=== PATIENT | male | born 1950 | race Caucasian/White ===

== ENCOUNTER 2017-03-25 18:57 | Inpatient (IN) | payer MEDICARE, MEDICAID ==
[2017-03-25 19:48] LABS: Hematocrit 38 % (42-52); Hemoglobin 12.6 g/dl (14.0-18.0); Mean Corpuscular HGB Conc 34 g/dl (31-36); Mean Corpuscular Hemoglobin 31 pg (27-31); Mean Corpuscular Volume 93 fL (80-94); Mean Platelet Volume 9 um3 (7.4-10.4); Red Blood Count 4.05 10^6/ul (4.0-5.4); Red Cell Distribution Width 13 % (10.5-15); White Blood Count 20.1 10^3/ul (3.5-10.8)
[2017-03-25] MEDS ORDERED: NS 0.9% 1000 ML* 1,800 ML IV ONE (19:54)
[2017-03-25] MEDS ORDERED: Thiamine IV* 100 MG, Folic Acid IV* 1 MG, Multiple Vitamin IV ADULT* 10 ML, Magnesium S... IV ONE ×5 (19:54)
[2017-03-25] MEDS ORDERED: cefTRIAXone(*) 1 GM in NS 0.9% 50 ML* 50 ML IVPB ONE (19:55)
[2017-03-25 20:02] LABS: ALT 16 U/L (7-52); AST 36 U/L (13-39); Alkaline Phosphatase 57 U/L (34-104); BUN/Creatinine Ratio 12.2 (8-20); Blood Urea Nitrogen 11 mg/dL (6-24); CO2 Carbon Dioxide 23 mmol/L (22-32); Calcium 9.7 mg/dL (8.6-10.3); Chloride 91 mmol/L (101-111); EGFR African American 108.6 (>60); EGFR Non-African American 84.4 (>60); Globulin 3.7 g/dL (2-4); Glucose 106 mg/dL (70-100); Sodium 128 mmol/L (133-145); Total Protein 6.7 g/dL (6.4-8.9)
[2017-03-25 20:14] LABS: Creatine Kinase 691 U/L (10-223)
[2017-03-25 20:24] LABS: Anion Gap 14 mmol/L (2-11); Potassium 2.7 mmol/L (3.5-5.0)
[2017-03-25] MEDS ORDERED: Potassium Chlor TAB* 20 MEQ TAB.ER PO ONE (20:32)
[2017-03-25 20:53] LABS: Troponin I 0.12 ng/mL (<0.04)
--- NOTE | 2017-03-25 21:06 | RAD ---
Indication: Fall, head injury. CT of the brain was performed without IV contrast. Ventricular structures are midline. No midline shift is noted. The extra-axial spaces are unremarkable. Periventricular lucency consistent with chronic ischemic changes noted. There is no evidence of intracranial mass or hemorrhage. No other high or low density lesions are identified. Mastoid air cells and paranasal sinuses are clear. IMPRESSION: No intracranial mass or hemorrhage is noted.
--- NOTE | 2017-03-25 21:07 | RAD ---
Indication: Right proximal humerus pain. 4 views views of the right shoulder demonstrates no fracture. No other bone or joint abnormality is identified. IMPRESSION: No fracture of the right shoulder is noted.
[2017-03-25 21:11] LABS: Alcohol < 10 mg/dL (<10)
--- NOTE | 2017-03-25 21:32 | ED ---
Pilar Otero Rebecca, scribed for Terra Handy MD on 03/25/17 at 1928 . Altered Mental Status - HPI Summary HPI Summary: Pt is a 66 y/o M BIBA who presents to ED s/p being found on the ground by his daughter. Per nurse, the daughter stated that he drinks heavily, was unsure of how much he drank today, and that he was extremely confused upon finding him. EMT additionally reported moderate confusion. Unsure of when sx began. When asked, pt could not recall what occurred leading to him being found on the ground. Is aware of location, unaware of date and age. Unknown aggravating and alleviating factors. Pt c/o slight R shoulder pain and slight thoracic back pain , stating it "feels more like skin." Sx aggravated and alleviated by nothing. Denies abd pain, hip pain and bilateral LE pain. Denies EtOH withdrawals and anxiety. Reports his daughter visits quite often, but not every day. SHx 4-5 beers per day, per pt. No PMHx seizure. PCP is [facility], last seen approximately 1.5 years ago. - History Of Current Complaint Chief Complaint: EDWeakness Stated Complaint: FAILURE TO THRIVE Hx Obtained From: Patient, EMS, Other: - Nurse Onset/Duration: Unknown Severity Initially: Moderate Severity Currently: Moderate Character: Confusion Aggravating Factor(s): Unknown Alleviating Factor(s): Unknown - Allergies/Home Medications Allergies/Adverse Reactions: Allergies Allergy/AdvReac Type Severity Reaction Status Date / Time No Known Allergies Allergy Verified 03/25/17 19:22 PMH/Surg Hx/FS Hx/Imm Hx Endocrine/Hematology History: Denies: Hx Diabetes Cardiovascular History: Denies: Hx Hypercholesterolemia, Hx Hypertension GI History: Reports: Hx Gastroesophageal Reflux Disease EENT History: Reports: Hx Seasonal Allergies - Immunization History Date of Tetanus Vaccine: unk Date of Influenza Vaccine: unk Infectious Disease History: Unable to Obtain/Confirm Infectious Disease History: Denies: Traveled Outside the [place] in Last 30 Days - Family History Known Family History: Negative: Hypertension, Diabetes - Social History Lives: Alone Alcohol Use: Daily Alcohol Amount: 4-5 beers/day per pt Substance Use Type: Reports: None Smoking Status (MU): Smoker, Current Status Unknown Review of Systems Negative: Abdominal Pain Positive: Arthralgia - Mild R shoulder pain and mild thoracic back pain; Denies hip pain and bilateral LE pain Psychological: Other - Denies EtOH withdrawals Positive: Other - AMS - confusion. Negative: Anxious All Other Systems Reviewed And Are Negative: Yes Physical Exam Triage Information Reviewed: Yes Vital Signs On Initial Exam: Initial Vitals Temp Pulse Resp BP Pulse Ox 99.9 F 81 16 160/77 93 03/25/17 19:13 03/25/17 19:13 03/25/17 19:13 03/25/17 19:13 03/25/17 19:13 Vital Signs Reviewed: Yes Appearance: Positive: Well-Appearing, No Pain Distress Skin: Positive: Warm, Dry, Other - Approximately a 3 cm erythematous area/ contusion over the proximal humorous on the right side. Eyes: Positive: EOMI, HERNANDEZ ENT: Positive: Pharynx normal, TMs normal, Other - Telangiectasia on nose Neck: Positive: Supple, Nontender Respiratory/Lung Sounds: Positive: Clear to Auscultation, Breath Sounds Present. Negative: Rales, Rhonchi, Wheezes Cardiovascular: Positive: RRR, Other - No gallop. Negative: Murmur, Rub Abdomen Description: Positive: Nontender, Soft, Other: - No rebound. Negative: Distended, Guarding Musculoskeletal: Positive: Strength/ROM Intact Neurological: Positive: Sensory/Motor Intact, CN Intact II-III, Finger to Nose - Normal, Other - Intention tremor. Negative: Facial Droop Psychiatric: Positive: Affect/Mood Appropriate - Marilee Coma Scale Coma Scale Total: 14 Diagnostics - Vital Signs Vital Signs Temp Pulse Resp BP Pulse Ox 03/25/17 19:13 99.9 F 81 16 160/77 93 - Laboratory Lab Results: Lab Results 03/25/17 03/25/17 03/25/17 Range/Units 19:35 19:35 19:35 WBC 20.1 H (3.5-10.8) 10^3/ul RBC 4.05 (4.0-5.4) 10^6/ul Hgb 12.6 L (14.0-18.0) g/dl Hct 38 L (42-52) % MCV 93 (80-94) fL MCH 31 (27-31) pg MCHC 34 (31-36) g/dl RDW 13 (10.5-15) % Plt Count 151 (150-450) 10^3/ul MPV 9 (7.4-10.4) um3 Neut % (Auto) 89.4 H (38-83) % Lymph % (Auto) 6.1 L (25-47) % Cassia % (Auto) 3.7 (1-9) % Eos % (Auto) 0.1 (0-6) % Baso % (Auto) 0.7 (0-2) % Absolute Neuts (auto) 18.0 H (1.5-7.7) 10^3/ul Absolute Lymphs (auto) 1.2 (1.0-4.8) 10^3/ul Absolute Monos (auto) 0.8 (0-0.8) 10^3/ul Absolute Eos (auto) 0 (0-0.6) 10^3/ul Absolute Basos (auto) 0.1 (0-0.2) 10^3/ul Absolute Nucleated RBC 0 10^3/ul Nucleated RBC % 0 Sodium 128 L (133-145) mmol/L Potassium 2.7 L* (3.5-5.0) mmol/L Chloride 91 L (101-111) mmol/L Carbon Dioxide 23 (22-32) mmol/L Anion Gap 14 H (2-11) mmol/L BUN 11 (6-24) mg/dL Creatinine 0.90 (0.67-1.17) mg/dL Est GFR ( Amer) 108.6 (>60) Est GFR (Non-Af Amer) 84.4 (>60) BUN/Creatinine Ratio 12.2 (8-20) Glucose 106 H (70-100) mg/dL Lactic Acid 2.3 H* (0.5-2.0) mmol/L Calcium 9.7 (8.6-10.3) mg/dL Total Bilirubin 1.10 H (0.2-1.0) mg/dL AST 36 (13-39) U/L ALT 16 (7-52) U/L Alkaline Phosphatase 57 (34-104) U/L Total Creatine Kinase 691 H (10-223) U/L Troponin I 0.12 H* (<0.04) ng/mL Total Protein 6.7 (6.4-8.9) g/dL Albumin 3.0 L (3.2-5.2) g/dL Globulin 3.7 (2-4) g/dL Albumin/Globulin Ratio 0.8 L (1-3) Serum Alcohol < 10 (<10) mg/dL Result Diagrams: 03/25/17 19:35 03/25/17 19:35 Lab Statement: Any lab studies that have been ordered have been reviewed, and results considered in the medical decision making process. - Radiology Shoulder XR Xray Interpretation: No Acute Changes Radiology Interpretation Completed By: Radiologist - CT Brain CT CT Interpretation: No Acute Changes CT Interpretation Completed By: Radiologist - EKG 2053 Cardiac Rate: NL - 93 bpm Ectopy: PVCs - few PVCs EKG Interpretation: Sinus arrhythmia, LVH National Institutes Of Health - NIH Scale Level of Consciousness: Alert/Keenly Responsive Ask Patient the Month and His/Her Age: Neither Correct/Aphasic Ask Pt to Open/Close Eyes and Refining Machine Operator/Release Non-Paretic Hand: Both Correctly Best Gaze (Only Horizontal Eye Movement): Normal Visual Field Testing: No Visual Loss Facial Paresis-Pt to Smile & Close Eyes or Grimace Symmetry: Normal/Symmetrical Motor Function - Right Arm: No Drift-Holds 10 Seconds Motor Function - Left Arm: No Drift-Holds 10 Seconds Motor Function - Right Leg: No Drift-Holds 10 Seconds Motor Function - Left Leg: No Drift-Holds 10 Seconds Limb Ataxia-Must be out of Proportion to Weakness Present: Absent Sensory (Use Pinprick to Test Arms/Legs/Trunk/Face): Normal Best Language (Describe Picture, Name Items): No Aphasia Dysarthria (Read Several Words): Normal Extinction and Inattention: No Abnormality Total Score: 2 Altered Mental Statu Course/Dx - Course Course Of Treatment: 66 yo male found down by daughter with altered mental status, for me pt was able to carry on a conversation but didn't know month and age, reported hx of etoh abuse, ct brain neg, elevated wbc, and lactic, treated presumptively for sepsis and case discussed with Dr. Rodrgiuez for admission - Diagnoses Discharge Diagnoses: Altered mental status - Provider Notifications Discussed Care Of Patient With: Dr. Ocasio, hospitalist, who accepts pt for admission. Time Discussed With Above Provider: 20:54 Discharge - Discharge Plan Condition: Stable Disposition: ADMITTED TO [facility] Referrals: Francis Ledbetter MD [Primary Care Provider] - The documentation as recorded by the scribe, DiFabio,Evelyn accurately reflects the service I personally performed and the decisions made by me, Terra Handy MD.
[2017-03-25] MEDS ORDERED: Magnesium Sulfate 2 GM IV* 2 GM/50 ML BAG IV ONE (22:00)
[2017-03-25] MEDS ORDERED: Thiamine IV* 100 MG, Folic Acid IV* 1 MG, Multiple Vitamin IV ADULT* 10 ML in NS 0.9% 1... IV ONE (22:00)
--- NOTE | 2017-03-25 22:53 | HP ---
H&P (Free Text) History and Physical: PCP: Mirza Ledbetter MD Date/Time of Evaluation: 03/25/2017 5158 CC: collapse, AMS HPI: Mr Tellez is a 66YO male HX alcoholism who takes no prescribed medications. He recalls awakening this AM in his usual health, but at some time this afternoon a friend was trying to check on him, but Mr Tellez didn't answer his door for ~40minutes prompting the friend to call his daughter around 1730. She arrived around 1800 finding him on the floor outside his bathroom in a position. He was responsive and would answer questions, but doesn't recall events of the day. There was no emesis, bleeding, or loss of bowel bladder. He has been having poor PO intake related to worsening abdominal pain and diarrhea over the past several week which he has been treating with OTC anti -acid medications. He denies symptoms currently. PMedHx active alcoholism malnutrition chronic LBP Medications Denies Allergies No Known Allergies Allergy (Verified 03/25/17 19:22) PSurgHx L knee arthroscopy SocHx: 1/2 PPD cigarettes, 6-12 twenty-four OZ beers daily, occasional marijuana , denies other recreational drugs; , lives alone; formerly worked contractor, currently is an artist; full code status FamHx: positive for cancer, HTN, alcoholism, questionable HX Parkinsonism ROS: as above, otherwise reviewed and all were negative Constitutional: NAD, normally developed, malnourished unkempt appearing white male vitals: Vital Signs Temp 37.7 C 03/25/17 19:13 Pulse 81 03/25/17 19:13 Resp 16 03/25/17 19:13 BP 160/77 03/25/17 19:13 Pulse Ox 93 03/25/17 19:13 Intake & Output 03/24/17 03/25/17 03/25/17 23:59 11:59 23:59 Weight 58.967 kg HEENM: atraumatic; sclera/conjunctiva: non-icteric/clear; hearing: clinically intact; oropharynx: clear, mucosa moist Neck: soft tissue: non-tender; thyroid: normal Pulmonary: clear to auscultation bilaterally, good aeration, no accessory muscle use CV: RR/RR, normal S1S2, no carotid bruit, no jugular venous distention, 2+ B DP/ PT, no edema Abdominal: soft, non-distended, non-tender, no rebound/guarding/rigidity, normoactive bowel sounds, no hepatosplenomegaly or masses, no costovertebral angle tenderness Musculoskeletal: general: grossly intact; gait: stable Integumental: normal appearance and texture of exposed skin Neurologic: resting [id number] tremor of R hand Psychiatric orientation: AA&O to PPS affect: calm mood: cooperative eye contact: good content: reliable memory: absent regarding events of today responses: mildly slowed insight: fair Testing: Lab Results 03/25/17 03/25/17 03/25/17 Range/Units 19:35 19:35 19:35 WBC 20.1 H (3.5-10.8) 10^3/ul RBC 4.05 (4.0-5.4) 10^6/ul Hgb 12.6 L (14.0-18.0) g/dl Hct 38 L (42-52) % MCV 93 (80-94) fL MCH 31 (27-31) pg MCHC 34 (31-36) g/dl RDW 13 (10.5-15) % Plt Count 151 (150-450) 10^3/ul MPV 9 (7.4-10.4) um3 Neut % (Auto) 89.4 H (38-83) % Lymph % (Auto) 6.1 L (25-47) % Bryan % (Auto) 3.7 (1-9) % Eos % (Auto) 0.1 (0-6) % Baso % (Auto) 0.7 (0-2) % Absolute Neuts (auto) 18.0 H (1.5-7.7) 10^3/ul Absolute Lymphs (auto) 1.2 (1.0-4.8) 10^3/ul Absolute Monos (auto) 0.8 (0-0.8) 10^3/ul Absolute Eos (auto) 0 (0-0.6) 10^3/ul Absolute Basos (auto) 0.1 (0-0.2) 10^3/ul Absolute Nucleated RBC 0 10^3/ul Nucleated RBC % 0 Sodium 128 L (133-145) mmol/L Potassium 2.7 L* (3.5-5.0) mmol/L Chloride 91 L (101-111) mmol/L Carbon Dioxide 23 (22-32) mmol/L Anion Gap 14 H (2-11) mmol/L BUN 11 (6-24) mg/dL Creatinine 0.90 (0.67-1.17) mg/dL Est GFR ( Amer) 108.6 (>60) Est GFR (Non-Af Amer) 84.4 (>60) BUN/Creatinine Ratio 12.2 (8-20) Glucose 106 H (70-100) mg/dL Lactic Acid 2.3 H* (0.5-2.0) mmol/L Calcium 9.7 (8.6-10.3) mg/dL Total Bilirubin 1.10 H (0.2-1.0) mg/dL AST 36 (13-39) U/L ALT 16 (7-52) U/L Alkaline Phosphatase 57 (34-104) U/L Total Creatine Kinase 691 H (10-223) U/L Troponin I 0.12 H* (<0.04) ng/mL Total Protein 6.7 (6.4-8.9) g/dL Albumin 3.0 L (3.2-5.2) g/dL Globulin 3.7 (2-4) g/dL Albumin/Globulin Ratio 0.8 L (1-3) Serum Alcohol < 10 (<10) mg/dL ECG, personally reviewed: sinus arrhythmia rate 92, no ischemia, occasional PAC/ PVC, QTc 503 CXR, personally reviewed: ordered, pending CT brain WO, personally reviewed: IMPRESSION: No intracranial mass or hemorrhage is noted. XRY R shoulder, personally reviewed: IMPRESSION: No fracture of the right shoulder is noted. Impression: 66M having escalating alcohol consumption over the past few months associated with worsening abdominal pain and diarrhea resulting in poor PO intake and cessation of drinking with result of being found down today. Highly suspicious for withdrawal seizure vs arrhythmia vs doubtful vasovagal syncope based on duration of downtime (>1hour) DIAGNOSIS & PLAN Primary suspect alcohol withdrawal seizure : seizure precautions : WAM protocol with seizure prophylaxis : supplemental oxygen : telemetry : add prolactin to ED labs : check CXR to evaluation for possible aspiration : aids social worker for community abstinence resources : check hepatic US : supportive care leukocytosis : trend : blood CX, check UA, & CXR hypoKalemia : replace and recheck hypoNatremia : likely beer potomania : IVFs, monitor elevated troponin : suspect demand ischemia vs ?arrhythmia : check magnesium : telemetry : trend : without HX cardiac symptomotology, will hold aspirin & heparin as he likely has a significant alcoholic gastritis and is at risk for GI hemorrage, variceal status unknown : low dose metoprolol Secondary tobacco use disorder : suspect undiagnosed COPD : albuterol nebs PRN : mometasone/formoterol : tiotropium : incentive spirometry : guaifenesin : smoking cessation chronic LBP : pain control suspect undiagnosed Parkinsonism : follow up with PCP outpatient for work up Admission Rational: inpatient for suspected alcohol withdrawal seizure, the potentially life-threatening nature of which makes outpatient status inappropriate DVTp: SCDs, avoid anticoagulation give suspected alcoholic gastritis ? varices status Code Status: full HCP: daughter
[2017-03-25] MEDS ORDERED: LORazepam INJ* 2 MG/ML 1 ML VIAL IV SCH (23:45)
[2017-03-25] MEDS ORDERED: Acetaminophen TAB* 325 MG PO PRN (23:57)
[2017-03-25] MEDS ORDERED: Thiamine IV* 100 MG/ML 2 ML VIAL IM ONE (23:57)
[2017-03-26] MEDS ORDERED: Albuterol 2.5 MG/3 ML NEB.SOL* (0.083%) INH PRN (00:13)
[2017-03-26 00:15] LABS: Magnesium 1.2 mg/dL (1.9-2.7)
[2017-03-26 00:49] LABS: Prolactin 10.3 ng/mL (1.0-20.0)
[2017-03-26] MEDS ORDERED: Potassium Chlor TAB* 20 MEQ TAB.ER PO ONE (02:00)
[2017-03-26] MEDS: LORazepam TAB(*) 1 MG PO SCH ×3 (02:18→15:35)
[2017-03-26] MEDS: Metoprolol Tartrate TAB* 25 MG PO SCH ×3 (02:19→21:13)
[2017-03-26 05:38] LABS: Hematocrit 31 % (42-52); Hemoglobin 10.6 g/dl (14.0-18.0); Mean Corpuscular HGB Conc 34 g/dl (31-36); Mean Corpuscular Hemoglobin 31 pg (27-31); Mean Corpuscular Volume 91 fL (80-94); Mean Platelet Volume 9 um3 (7.4-10.4); Red Blood Count 3.39 10^6/ul (4.0-5.4); Red Cell Distribution Width 12 % (10.5-15); White Blood Count 18.2 10^3/ul (3.5-10.8)
[2017-03-26 05:40] LABS: Add Diff/Slide Review? Slide Review Added; Comments Flag Yes
[2017-03-26 05:42] LABS: BUN/Creatinine Ratio 14.5 (8-20); Calcium 8.4 mg/dL (8.6-10.3); EGFR Non-African American 102.6 (>60); Potassium 2.8 mmol/L (3.5-5.0)
[2017-03-26 05:46] LABS: Troponin I 0.11 ng/mL (<0.04)
--- NOTE | 2017-03-26 08:09 | RAD ---
INDICATION: Leukocytosis, possible aspiration. COMPARISON: There are no prior studies available for comparison. TECHNIQUE: Dual-energy PA and lateral views of the chest were obtained. FINDINGS: The heart is within normal limits in size. Mediastinal and hilar contours appear within normal limits. The lungs are hyperinflated and clear. No pleural effusion is seen. IMPRESSION: FINDINGS CONSISTENT WITH COPD, NO EVIDENCE FOR ACUTE FINDING.
[2017-03-26] MEDS ORDERED: Mometasone/Formoter 200/5 MDI INH SCH (09:00)
[2017-03-26] MEDS ORDERED: guaiFENesin ER TAB 600 MG PO SCH (09:00)
[2017-03-26] MEDS ORDERED: Spiriva Inhaler DEVICE* 1 EACH DEVICE INH ONE (09:00)
[2017-03-26] MEDS ORDERED: Tiotropium CAP.INH* CAP.INH/18 MCG INH SCH (09:00)
[2017-03-26] MEDS: Folic Acid TAB* 1 MG PO SCH (09:16)
[2017-03-26] MEDS: Thiamine TAB* 100 MG TAB PO SCH (09:16)
[2017-03-26] MEDS: Multivitamins/Minerals TAB PO SCH (09:16)
--- NOTE | 2017-03-26 10:34 | RAD ---
INDICATION: Alcoholism. Evaluate for cirrhosis. COMPARISON: None TECHNIQUE: Longitudinal and transverse scans of the right upper quadrant were obtained. Doppler interrogation of the hepatic and portal venous system was performed. FINDINGS: Liver: The liver is mildly diminutive in size. There is minor coarsening of the echotexture suggesting hepatic parenchymal disease.. The liver measures 13.5 cm in cephalocaudal dimension. Vessels: There is normal hepatic and portal venous flow. Bile ducts: There is no evidence of intrahepatic or extrahepatic ductal dilatation. The common duct measures 0.4 cm. Gallbladder: There may be trace sludge in the gallbladder. The sonographic appearance of the gallbladder is otherwise normal. There is no evidence of cholelithiasis, thickening of the gallbladder wall, or pericholecystic fluid. Pancreas: Limited evaluation due to interfering bowel gas. No abnormalities are identified. Right kidney: The right kidney is normal in size and echogenicity. There are no masses or calculi. There is no evidence of hydronephrosis. The right kidney measures 12.3 x 4.4 x 4.9 cm. IVC and aorta: The aorta and superior vena cava appear normal. Fluid: There is no ascites. Other: None. IMPRESSION: MILDLY HETEROGENEOUS LIVER WHICH IS MILDLY DIMINUTIVE IN SIZE RAISES THE POSSIBILITY OF MILD HEPATIC PARENCHYMAL DISEASE. PROBABLE SMALL AMOUNT OF GALLBLADDER SLUDGE.
--- NOTE | 2017-03-26 12:13 | ECHO ---
Patient: TY CHOWDARY [facility] Rec#: [id number] : 1950 Date: 03/26/2017 Age: 66y Height: 172.72 cm / 68.0 in Weight: 55.79 kg / 123.0 lbs Sex: M BSA: 1.66 Room#: [facility] Admit Date#: 03/25/2017 Type: Inpatient Referring: Isidoro Ocasio MD Reading: Katy Fountain MD Space Technologist: Prema Sanchez,RDCS,RDMS CC: Francis Ledbetter MD Transthoracic Echocardiogram Indication: Elevated troponin, AMS BP: 142/64 HR: 80 Rhythm: NSR Findings History: ETOH, smoker, COPD by chest Xray Technical Comments: The study quality is good. Completed 0950 Left Ventricle: The left ventricular chamber size is normal. Mild concentric left ventricular hypertrophy is observed. The estimated ejection fraction is 50-55%. Abnormal left ventricular diastolic filling is observed, consistent with impaired relaxation. Left Atrium: The left atrium is mildly dilated. Right Ventricle: The right ventricular chamber size and systolic function are within normal limits. Right Atrium: The right atrial cavity size is normal. A prominent chiari network is noted in the right atrium. Aortic Valve: The aortic valve is trileaflet. The aortic valve leaflets are moderately thickened. There is aortic annular calcification. There is mild to moderate aortic regurgitation. There is mild aortic stenosis. The mean gradient of the aortic valve is 13 mmHg. The aortic valve area, by peak velocities, is calculated at 1.5 cm2. Mitral Valve: There is mitral annular calcification. The mitral valve leaflets are mildly thickened. There is mild mitral regurgitation. There is no evidence of mitral stenosis. Tricuspid Valve: The tricuspid valve leaflets are normal. There is moderate tricuspid regurgitation. There is evidence of moderate pulmonary hypertension. Pulmonic Valve: There is no evidence of pulmonic valve thickening. There is no evidence of pulmonic regurgitation. Pericardium: A trivial pericardial effusion is visualized.No hemodynamic compromise. Aorta: The aortic root appears normal. There is no dilatation of the aortic arch. Pulmonary Artery: The main pulmonary artery is not well visualized. Venous: The inferior vena cava is dilated. There is an approximate 50% respiratory change in the inferior vena cava dimension. Summary: There was not any prior study for comparison. Conclusions The left ventricular chamber size is normal. Mild concentric left ventricular hypertrophy is observed. The estimated ejection fraction is 50-55%. The left atrium is mildly dilated. There is mild to moderate aortic regurgitation. There is mild aortic stenosis. There is mild mitral regurgitation. There is moderate tricuspid regurgitation. There is evidence of moderate pulmonary hypertension. Measurements Name Value Normal Range RVIDd (AP) 2D 2.8 cm (0.9 - 2.6) RVDdMajor (2D) 2.9 cm (2.2 - 4.4) RAd ISD 4CH 4.8 cm (3.4 - 4.9) RA (A4C)W 4.1 cm (2.9 - 4.6) IVSd (2D) 1.3 cm (0.6 - 1) LVPWd (2D) 1.3 cm (0.6 - 1) LVIDd (2D) 4.3 cm (3.6 - 5.4) LVIDs (2D) 3.6 cm - LV FS (2D) 17 % (25 - 45) Aortic Annulus 2 cm (1.4 - 2.6) Ao root diameter (2D) 3.1 cm (2.1 - 3.5) Ascending Ao 3.1 cm (2.1 - 3.4) Aortic arch 2.9 cm (1.8 - 3.4) LA dimension (AP) 2D 3.6 cm (2.3 - 3.8) LAd ISD 4CH 5.9 cm (2.9 - 5.3) LA ISD 4CH W 3.7 cm (2.5 - 4.5) Name Value Normal Range LA ESV SP 4CH (A/L) 64.75 ml - LA ESV SP 2CH (A/L) 67.54 ml - LA ESV BP (A/L) 69.4 ml - LA ESV BP (A/L) index 42 ml/m2 - LA ESV SP 4CH (MOD) 57.42 ml - LA ESV SP 2CH (MOD) 61.15 ml - Name Value Normal Range MV E-wave Vmax 0.6 m/sec - MV deceleration time 146 msec - MV A-wave Vmax 0.8 m/sec - MV E:A ratio 0.8 ratio - P. vein S-wave Vmax 0.5 m/sec - P. vein D-wave Vmax 0.3 m/sec - P. vein S:D Vmax ratio 1.5 ratio - P. vein A-wave duration 107.3 msec - LV septal e' Vmax 0.07 m/sec - LV lateral e' Vmax 0.06 m/sec - LV E:e' septal ratio 8.6 ratio - LV E:e' lateral ratio 10 ratio - Name Value Normal Range AV Vmax 2.7 m/sec - AV VTI 51.2 cm - AV peak gradient 29 mmHg - AV mean gradient 13 mmHg - LVOT diameter 2.2 cm - LVOT Vmax 1.1 m/sec - LVOT VTI 24.5 cm - LVOT peak gradient 5 mmHg - LVOT mean gradient 2.7 mmHg - DOI (VTI) 0.5 ratio - STEWART (continuity Vmax) 1.5 cm2 - STEWART (continuity VTI) 1.8 cm2 - AR PHT 353.96 msec - AR peak gradient 67.86 mmHg - MICHELINE Vmax 0.6 m/sec - Name Value Normal Range MR Vmax 6.22 m/sec - MR VTI 210.3 cm - Name Value Normal Range TR Vmax 3.1 m/sec - TR peak gradient 38 mmHg - RAP 8 mmHg - RVSP 46 mmHg - IVC diameter 2.3 cm - Name Value Normal Range PV Vmax 0.6 m/sec - PV peak gradient 1.4 mmHg -
[2017-03-26] MEDS ORDERED: LORazepam INJ* 2 MG/ML 1 ML VIAL IV SCH (17:26)
[2017-03-26] MEDS: KCL 20 MEQ/100 ML IVPREMIX* 20 MEQ/100 ML BAG IV SCH ×2 (17:40→21:29)
[2017-03-26] MEDS: NS 0.9% 1000 ML* 1,000 ML IV SCH (17:40)
[2017-03-26] MEDS ORDERED: Piperac/Tazob 3.375 gm in NS* 3.375 GM/100 ML BAG IVPB SCH (18:00)
--- NOTE | 2017-03-26 19:04 | PN ---
Subjective Date of Service: 03/26/17 Interval History: Pt is noted to be much more lethargic today per his daughter. She is concerned because she thinks he looks worse now than previous. He denies any pain. Objective Active Medications: Acetaminophen (Tylenol Tab*) 650 mg PO Q4H PRN PRN Reason: PAIN Albuterol (Ventolin 2.5 Mg/3 Ml Neb.Rivka*) 2.5 mg INH Q2H PRN PRN Reason: SOB/WHEEZING Folic Acid (Folvite Tab*) 1 mg PO DAILY [facility] Last Admin: 03/26/17 09:16 Dose: 1 mg Potassium Chloride (Potassium Chloride 20 Meq/100 Ml Ivpremix*) 20 meq in 100 mls @ 50 mls/hr IV Q2H [facility] Stop: 03/26/17 23:59 Last Admin: 03/26/17 17:40 Dose: 50 mls/hr Sodium Chloride (Ns 0.9% 1000 Ml*) 1,000 mls @ 75 mls/hr IV PER RATE [facility] Last Admin: 03/26/17 17:40 Dose: 75 mls/hr Piperacillin Sod/Tazobactam Sod (Zosyn 3.375 Gm In Ns Premix*) 3.375 gm in 100 mls @ 200 mls/hr IVPB .ONCE-THEN Rx DOSING [facility] Lorazepam (Ativan Inj*) 0 mg IV .PER WAM SCORE [facility] PRN Reason: Protocol Metoprolol Tartrate (Lopressor Tab*) 25 mg PO BID [facility] Last Admin: 03/26/17 09:16 Dose: 25 mg Multivitamins/Minerals (Theragran/Minerals Tab*) 1 tab PO DAILY [facility] Last Admin: 03/26/17 09:16 Dose: 1 tab Thiamine HCl (Vitamin B-1 Tab*) 100 mg PO DAILY [facility] Last Admin: 03/26/17 09:16 Dose: 100 mg Vital Signs 03/25/17 03/25/17 03/25/17 23:00 23:30 23:54 Temperature 99.1 F Pulse Rate 87 87 93 Respiratory 16 Rate Blood Pressure 141/64 141/64 148/69 (mmHg) O2 Sat by Pulse 93 93 98 Oximetry 03/26/17 03/26/17 03/26/17 00:00 00:01 00:18 Temperature Pulse Rate 83 83 85 Respiratory Rate Blood Pressure 143/63 144/69 (mmHg) O2 Sat by Pulse 94 94 94 Oximetry 03/26/17 03/26/17 03/26/17 00:30 01:00 02:18 Temperature Pulse Rate 87 86 Respiratory 16 Rate Blood Pressure 156/65 (mmHg) O2 Sat by Pulse 94 95 Oximetry 03/26/17 03/26/17 03/26/17 03:39 04:18 04:53 Temperature 97.8 F 97.6 F Pulse Rate 76 77 Respiratory 16 20 16 Rate Blood Pressure 155/57 144/57 (mmHg) O2 Sat by Pulse 96 96 Oximetry 03/26/17 03/26/17 03/26/17 07:41 07:43 09:16 Temperature 97.6 F Pulse Rate 48 Respiratory 16 18 15 Rate Blood Pressure 142/64 (mmHg) O2 Sat by Pulse 95 Oximetry 03/26/17 03/26/17 03/26/17 09:40 11:16 11:32 Temperature 97.6 F 97.7 F Pulse Rate 75 79 Respiratory 16 16 16 Rate Blood Pressure 141/65 140/79 (mmHg) O2 Sat by Pulse 99 96 Oximetry 03/26/17 15:22 Temperature 97.8 F Pulse Rate 79 Respiratory 24 Rate Blood Pressure 144/68 (mmHg) O2 Sat by Pulse 97 Oximetry Oxygen Devices in Use Now: None Appearance: Middle aged chronically ill appear male, sitting in a chair, NAD Eyes: No Scleral Icterus Ears/Nose/Mouth/Throat: Mucous Membranes Moist Respiratory: Symmetrical Chest Expansion and Respiratory Effort, Clear to Auscultation Cardiovascular: NL Sounds; No Murmurs; No JVD, RRR, No Edema Abdominal: NL Sounds; No Tenderness; No Distention Extremities: No Clubbing, Cyanosis Skin: No Rash or Ulcers, No Nodules or Sclerosis Neurological: - - alert, speech is difficult to understand Result Diagrams: 03/26/17 05:22 03/26/17 05:22 Additional Lab and Data: Lab Results 03/25/17 03/25/17 03/25/17 Range/Units 19:35 19:35 19:35 WBC 20.1 H (3.5-10.8) 10^3/ul RBC 4.05 (4.0-5.4) 10^6/ul Hgb 12.6 L (14.0-18.0) g/dl Hct 38 L (42-52) % MCV 93 (80-94) fL MCH 31 (27-31) pg MCHC 34 (31-36) g/dl RDW 13 (10.5-15) % Plt Count 151 (150-450) 10^3/ul MPV 9 (7.4-10.4) um3 Neut % (Auto) 89.4 H (38-83) % Lymph % (Auto) 6.1 L (25-47) % [place] % (Auto) 3.7 (1-9) % Eos % (Auto) 0.1 (0-6) % Baso % (Auto) 0.7 (0-2) % Absolute Neuts (auto) 18.0 H (1.5-7.7) 10^3/ul Absolute Lymphs (auto) 1.2 (1.0-4.8) 10^3/ul Absolute Monos (auto) 0.8 (0-0.8) 10^3/ul Absolute Eos (auto) 0 (0-0.6) 10^3/ul Absolute Basos (auto) 0.1 (0-0.2) 10^3/ul Absolute Nucleated RBC 0 10^3/ul Nucleated RBC % 0 Sodium 128 L (133-145) mmol/L Potassium 2.7 L* (3.5-5.0) mmol/L Chloride 91 L (101-111) mmol/L Carbon Dioxide 23 (22-32) mmol/L Anion Gap 14 H (2-11) mmol/L BUN 11 (6-24) mg/dL Creatinine 0.90 (0.67-1.17) mg/dL Est GFR ( Amer) 108.6 (>60) Est GFR (Non-Af Amer) 84.4 (>60) BUN/Creatinine Ratio 12.2 (8-20) Glucose 106 H (70-100) mg/dL Lactic Acid 2.3 H* (0.5-2.0) mmol/L Calcium 9.7 (8.6-10.3) mg/dL Total Bilirubin 1.10 H (0.2-1.0) mg/dL AST 36 (13-39) U/L ALT 16 (7-52) U/L Alkaline Phosphatase 57 (34-104) U/L Total Creatine Kinase 691 H (10-223) U/L Troponin I 0.12 H* (<0.04) ng/mL Total Protein 6.7 (6.4-8.9) g/dL Albumin 3.0 L (3.2-5.2) g/dL Globulin 3.7 (2-4) g/dL Albumin/Globulin Ratio 0.8 L (1-3) Serum Alcohol < 10 (<10) mg/dL Assess/Plan/Problems-Billing Mr Tellez is a 66 yo M with a longstanding h/o alcoholism who started to cut back on drinking about 2 weeks ago on his own was found down outside of his bathroom and brought to the ER for evaluation. He felt to have a possible alcohol withdrawal seizure. - Patient Problems (1) Alcoholism Current Visit: Yes Status: Acute Code(s): F10.20 - ALCOHOL DEPENDENCE, UNCOMPLICATED SNOMED Code(s): 4830540 (2) Leukocytosis Current Visit: Yes Status: Acute Code(s): D72.829 - ELEVATED WHITE BLOOD CELL COUNT, UNSPECIFIED SNOMED Code(s): 737536101 Comment: ? aspiration pna. Will start zosyn. Monitor respiratory status. I question if he may have aspirated at the time of falling. (3) Hypokalemia Current Visit: Yes Status: Acute Code(s): E87.6 - HYPOKALEMIA SNOMED Code( s): 89414298 Comment: K remains low. Will start KCl 20mEq IV x3 runs. Will repeat BMP in AM. K likely low secondary to poor oral intake at home related to massive amounts of beer. (4) Hyponatremia Current Visit: Yes Status: Acute Code(s): E87.1 - HYPO-OSMOLALITY AND HYPONATREMIA SNOMED Code(s): 65493666 Comment: Likely beer drinkers potomania. Will start IVF hydration and repeat BMP tomorrow. (5) Elevated troponin Current Visit: Yes Status: Acute Code(s): R74.8 - ABNORMAL LEVELS OF OTHER SERUM ENZYMES SNOMED Code(s): 691039406 Comment: Likely demand ischemia. Echo did not show any wall motion abnormalities. Will not pursue any further work up at this time. (6) Tobacco abuse Current Visit: Yes Status: Acute Code(s): Z72.0 - TOBACCO USE SNOMED Code( s): 480358046 Comment: Once more alert and interactive can give smoking cessation education. (7) DVT prophylaxis Current Visit: Yes Status: Acute Code(s): SPD3841 - SNOMED Code(s): 524135747 Comment: Start SQ heparin (8) Full code status Current Visit: Yes Status: Acute Code(s): Z78.9 - OTHER SPECIFIED HEALTH STATUS SNOMED Code(s): 600022912
[2017-03-26] MEDS: Heparin VIAL(*) 5000 UNITS/ML VIAL (FIVE THOUSAND) SUBCUT SCH (21:18)
[2017-03-27] MEDS: KCL 20 MEQ/100 ML IVPREMIX* 20 MEQ/100 ML BAG IV SCH (01:58)
[2017-03-27] MEDS: Piperac/Tazob 3.375 gm in NS* 3.375 GM/100 ML BAG IVPB SCH ×3 (02:06→17:39)
[2017-03-27 06:14] LABS: Hematocrit 30 % (42-52); Hemoglobin 10.1 g/dl (14.0-18.0); Mean Corpuscular HGB Conc 34 g/dl (31-36); Mean Corpuscular Hemoglobin 31 pg (27-31); Mean Corpuscular Volume 93 fL (80-94); Mean Platelet Volume 9 um3 (7.4-10.4); Red Blood Count 3.22 10^6/ul (4.0-5.4); Red Cell Distribution Width 13 % (10.5-15); White Blood Count 11.8 10^3/ul (3.5-10.8)
[2017-03-27 06:33] LABS: Calcium 8.2 mg/dL (8.6-10.3); EGFR African American 124.4 (>60); EGFR Non-African American 96.7 (>60); Potassium 3.5 mmol/L (3.5-5.0)
[2017-03-27] MEDS: Thiamine TAB* 100 MG TAB PO SCH (09:25)
[2017-03-27] MEDS: Metoprolol Tartrate TAB* 25 MG PO SCH ×2 (09:25→22:14)
[2017-03-27] MEDS: Folic Acid TAB* 1 MG PO SCH (09:25)
[2017-03-27] MEDS: Heparin VIAL(*) 5000 UNITS/ML VIAL (FIVE THOUSAND) SUBCUT SCH ×2 (09:25→22:16)
[2017-03-27] MEDS: Multivitamins/Minerals TAB PO SCH (09:51)
--- NOTE | 2017-03-27 12:20 | PN ---
Subjective Date of Service: 03/27/17 Interval History: Pt is feeling well. He does c/o pain all over. His family/friends think his mental status is much closer to her baseline. He states he has only done a little bit of walking around the room. He is unable to tell me why he cut back on drinking. His friend states that he used to drink over a case of beer/day but over the last couple months was down to about a 6 pack/day and over the last couple weeks 1-2 beers/day. His friend states he did not notice any beer gone from 03/19/17-03/24/17 (the day prior to him being found down). Objective Active Medications: Acetaminophen (Tylenol Tab*) 650 mg PO Q4H PRN PRN Reason: PAIN Albuterol (Ventolin 2.5 Mg/3 Ml Neb.Rivka*) 2.5 mg INH Q2H PRN PRN Reason: SOB/WHEEZING Folic Acid (Folvite Tab*) 1 mg PO DAILY [facility] Last Admin: 03/27/17 09:25 Dose: 1 mg Heparin Sodium (Porcine) (Heparin Vial(*)) 5,000 units SUBCUT Q12HR [facility] Last Admin: 03/27/17 09:25 Dose: 5,000 units Sodium Chloride (Ns 0.9% 1000 Ml*) 1,000 mls @ 75 mls/hr IV PER RATE [facility] Last Admin: 03/26/17 17:40 Dose: 75 mls/hr Piperacillin Sod/Tazobactam Sod (Zosyn 3.375 Gm In Ns Premix*) 3.375 gm in 100 mls @ 25 mls/hr IVPB Q8H [facility] Last Admin: 03/27/17 09:24 Dose: 25 mls/hr Lorazepam (Ativan Inj*) 0 mg IV .PER WAM SCORE [facility] PRN Reason: Protocol Metoprolol Tartrate (Lopressor Tab*) 25 mg PO BID [facility] Last Admin: 03/27/17 09:25 Dose: 25 mg Multivitamins/Minerals (Theragran/Minerals Tab*) 1 tab PO DAILY [facility] Last Admin: 03/27/17 09:51 Dose: Not Given Thiamine HCl (Vitamin B-1 Tab*) 100 mg PO DAILY [facility] Last Admin: 03/27/17 09:25 Dose: 100 mg Vital Signs 05/03/26/17 03/26/17 15:22 20:00 20:50 Temperature 97.8 F Pulse Rate 79 82 Respiratory 24 20 20 Rate Blood Pressure 144/68 126/57 (mmHg) O2 Sat by Pulse 97 99 Oximetry 03/27/17 03/27/17 03/27/17 00:11 01:44 04:08 Temperature 98.4 F 98.5 F Pulse Rate 77 79 76 Respiratory 22 20 Rate Blood Pressure 176/74 152/73 168/64 (mmHg) O2 Sat by Pulse 100 100 Oximetry 03/27/17 03/27/17 03/27/17 06:53 07:37 07:38 Temperature 97.3 F Pulse Rate 77 Respiratory 16 16 16 Rate Blood Pressure 157/66 (mmHg) O2 Sat by Pulse 100 Oximetry Oxygen Devices in Use Now: None Appearance: Middle aged chronically ill male sitting in a chair, awake and alert , NAD Eyes: No Scleral Icterus Ears/Nose/Mouth/Throat: Mucous Membranes Moist Respiratory: Symmetrical Chest Expansion and Respiratory Effort, Clear to Auscultation - diminshed breath sounds in all lung sotelo Cardiovascular: NL Sounds; No Murmurs; No JVD, RRR, No Edema Abdominal: NL Sounds; No Tenderness; No Distention Extremities: No Clubbing, Cyanosis Skin: No Rash or Ulcers, No Nodules or Sclerosis Neurological: Alert and Oriented x 3 Result Diagrams: 03/27/17 05:48 03/27/17 05:48 Additional Lab and Data: Lab Results 03/25/17 03/25/17 03/25/17 Range/Units 19:35 19:35 19:35 WBC 20.1 H (3.5-10.8) 10^3/ul RBC 4.05 (4.0-5.4) 10^6/ul Hgb 12.6 L (14.0-18.0) g/dl Hct 38 L (42-52) % MCV 93 (80-94) fL MCH 31 (27-31) pg MCHC 34 (31-36) g/dl RDW 13 (10.5-15) % Plt Count 151 (150-450) 10^3/ul MPV 9 (7.4-10.4) um3 Neut % (Auto) 89.4 H (38-83) % Lymph % (Auto) 6.1 L (25-47) % [place] % (Auto) 3.7 (1-9) % Eos % (Auto) 0.1 (0-6) % Baso % (Auto) 0.7 (0-2) % Absolute Neuts (auto) 18.0 H (1.5-7.7) 10^3/ul Absolute Lymphs (auto) 1.2 (1.0-4.8) 10^3/ul Absolute Monos (auto) 0.8 (0-0.8) 10^3/ul Absolute Eos (auto) 0 (0-0.6) 10^3/ul Absolute Basos (auto) 0.1 (0-0.2) 10^3/ul Absolute Nucleated RBC 0 10^3/ul Nucleated RBC % 0 Sodium 128 L (133-145) mmol/L Potassium 2.7 L* (3.5-5.0) mmol/L Chloride 91 L (101-111) mmol/L Carbon Dioxide 23 (22-32) mmol/L Anion Gap 14 H (2-11) mmol/L BUN 11 (6-24) mg/dL Creatinine 0.90 (0.67-1.17) mg/dL Est GFR ( Amer) 108.6 (>60) Est GFR (Non-Af Amer) 84.4 (>60) BUN/Creatinine Ratio 12.2 (8-20) Glucose 106 H (70-100) mg/dL Lactic Acid 2.3 H* (0.5-2.0) mmol/L Calcium 9.7 (8.6-10.3) mg/dL Total Bilirubin 1.10 H (0.2-1.0) mg/dL AST 36 (13-39) U/L ALT 16 (7-52) U/L Alkaline Phosphatase 57 (34-104) U/L Total Creatine Kinase 691 H (10-223) U/L Troponin I 0.12 H* (<0.04) ng/mL Total Protein 6.7 (6.4-8.9) g/dL Albumin 3.0 L (3.2-5.2) g/dL Globulin 3.7 (2-4) g/dL Albumin/Globulin Ratio 0.8 L (1-3) Serum Alcohol < 10 (<10) mg/dL Microbiology and Other Data: Microbiology 03/26/17 00:25 Aerobic Blood Culture - Preliminary Blood Venous No Growth Day 1 Anaerobic Blood Culture - Preliminary No Growth Day 1 Assess/Plan/Problems-Billing Mr Tellez is a 66 yo M with a longstanding h/o alcoholism who started to cut back on drinking about 2 weeks ago on his own was found down outside of his bathroom and brought to the ER for evaluation. He felt to have a possible alcohol withdrawal seizure. - Patient Problems (1) Alcoholism Current Visit: Yes Status: Acute Code(s): F10.20 - ALCOHOL DEPENDENCE, UNCOMPLICATED SNOMED Code(s): 7621904 Comment: The patient's ex- states that all of his friends that visit are alcoholic. He states that he would consider trying to remain abstinent. He thinks he can definitely cut way back from where he was to just 1-2 beers/day. He can not tell me why he cut down on drinking. (2) Leukocytosis Current Visit: Yes Status: Acute Code(s): D72.829 - ELEVATED WHITE BLOOD CELL COUNT, UNSPECIFIED SNOMED Code(s): 389341617 Comment: WBC count improved with initiation of zosyn. Will continue zosyn for now. Check urinalysis. (3) Hypokalemia Current Visit: Yes Status: Acute Code(s): E87.6 - HYPOKALEMIA SNOMED Code( s): 62180848 Comment: Improved after IV K yesterday. Follow up level tomorrow. (4) Hyponatremia Current Visit: Yes Status: Acute Code(s): E87.1 - HYPO-OSMOLALITY AND HYPONATREMIA SNOMED Code(s): 02031645 Comment: Improved with hydration. Continue gentle hydration and follow up labs tomorrow. (5) Elevated troponin Current Visit: Yes Status: Acute Code(s): R74.8 - ABNORMAL LEVELS OF OTHER SERUM ENZYMES SNOMED Code(s): 277272279 Comment: Likely demand ischemia. Echo did not show any wall motion abnormalities. Will take the weekend to see how the patient does with mobility, mental status and then consider a stress test though I still think the elevated troponin was secondary to demand ischemia. (6) Tobacco abuse Current Visit: Yes Status: Acute Code(s): Z72.0 - TOBACCO USE SNOMED Code( s): 192386391 Comment: Encourage smoking cessation. (7) DVT prophylaxis Current Visit: Yes Status: Acute Code(s): OXB1513 - SNOMED Code(s): 722385641 Comment: SQ heparin (8) Full code status Current Visit: Yes Status: Acute Code(s): Z78.9 - OTHER SPECIFIED HEALTH STATUS SNOMED Code(s): 681356235
[2017-03-27 12:59] LABS: Ferritin 225.1 ng/mL (24-336)
[2017-03-27 13:02] LABS: Folate 15.7 ng/mL (>3.99)
[2017-03-27] MEDS: NS 0.9% 1000 ML* 1,000 ML IV SCH (14:26)
[2017-03-27] MEDS: Multivitamins ADULT w/MIN LIQ* 15 ML UDC PO SCH (17:30)
[2017-03-28] MEDS: Piperac/Tazob 3.375 gm in NS* 3.375 GM/100 ML BAG IVPB SCH ×2 (01:26→09:01)
[2017-03-28] MEDS ORDERED: Al Hydrox/Mg Hydrox/Simet LIQ* 30 ML UDC PO PRN (01:41)
[2017-03-28] MEDS: Folic Acid TAB* 1 MG PO SCH (09:01)
[2017-03-28] MEDS: Multivitamins ADULT w/MIN LIQ* 15 ML UDC PO SCH (09:01)
[2017-03-28] MEDS: Heparin VIAL(*) 5000 UNITS/ML VIAL (FIVE THOUSAND) SUBCUT SCH ×2 (09:01→20:17)
[2017-03-28] MEDS: Metoprolol Tartrate TAB* 25 MG PO SCH ×2 (09:01→20:13)
[2017-03-28] MEDS: Thiamine TAB* 100 MG TAB PO SCH (09:01)
--- NOTE | 2017-03-28 15:21 | PN ---
Subjective Date of Service: 03/28/17 Interval History: No c/o. Objective Active Medications: Acetaminophen (Tylenol Tab*) 650 mg PO Q4H PRN PRN Reason: PAIN Al Hydrox/Mg Hydrox/Simethicone (Maalox Plus*) 30 ml PO Q4H PRN PRN Reason: HEARTBURN Last Admin: 03/28/17 01:49 Dose: 30 ml Albuterol (Ventolin 2.5 Mg/3 Ml Neb.Rivka*) 2.5 mg INH Q2H PRN PRN Reason: SOB/WHEEZING Folic Acid (Folvite Tab*) 1 mg PO DAILY [facility] Last Admin: 03/28/17 09:01 Dose: 1 mg Heparin Sodium (Porcine) (Heparin Vial(*)) 5,000 units SUBCUT Q12HR [facility] Last Admin: 03/28/17 09:01 Dose: 5,000 units Metoprolol Tartrate (Lopressor Tab*) 25 mg PO BID [facility] Last Admin: 03/28/17 09:01 Dose: 25 mg Multivitamins (Theragran W/Minerals Liq*) 15 ml PO DAILY [facility] Last Admin: 03/28/17 09:01 Dose: 15 ml Thiamine HCl (Vitamin B-1 Tab*) 100 mg PO DAILY [facility] Last Admin: 03/28/17 09:01 Dose: 100 mg Vital Signs 03/27/17 03/27/17 03/27/17 15:32 20:00 20:25 Temperature 97.5 F 97.4 F Pulse Rate 84 78 Respiratory 20 20 20 Rate Blood Pressure 122/55 156/72 (mmHg) O2 Sat by Pulse 100 97 Oximetry 03/27/17 03/27/17 03/28/17 22:12 23:52 04:21 Temperature 97.4 F 98.3 F Pulse Rate 79 75 78 Respiratory 16 16 Rate Blood Pressure 154/66 148/63 155/75 (mmHg) O2 Sat by Pulse 92 95 Oximetry 03/28/17 03/28/17 03/28/17 07:53 08:00 11:36 Temperature 97.2 F 97.4 F Pulse Rate 77 76 Respiratory 16 16 16 Rate Blood Pressure 146/69 160/71 (mmHg) O2 Sat by Pulse 95 100 Oximetry Oxygen Devices in Use Now: None Appearance: Alert, sittting up in bed. In good spirits. Looks comfortable. Eyes: No Scleral Icterus Ears/Nose/Mouth/Throat: Clear Oropharnyx, Mucous Membranes Moist Neck: NL Appearance and Movements; NL JVP, No Thyroid Enlargement, Masses Respiratory: Symmetrical Chest Expansion and Respiratory Effort, Clear to Auscultation, Clear to Percussion Extremities: No Edema, No Clubbing, Cyanosis, - Skin: No Rash or Ulcers, No Nodules or Sclerosis, - Neurological: Alert and Oriented x 3, NL Sensation Result Diagrams: 03/27/17 05:48 03/27/17 05:48 Additional Lab and Data: Lab Results 03/25/17 03/25/17 03/25/17 Range/Units 19:35 19:35 19:35 WBC 20.1 H (3.5-10.8) 10^3/ul RBC 4.05 (4.0-5.4) 10^6/ul Hgb 12.6 L (14.0-18.0) g/dl Hct 38 L (42-52) % MCV 93 (80-94) fL MCH 31 (27-31) pg MCHC 34 (31-36) g/dl RDW 13 (10.5-15) % Plt Count 151 (150-450) 10^3/ul MPV 9 (7.4-10.4) um3 Neut % (Auto) 89.4 H (38-83) % Lymph % (Auto) 6.1 L (25-47) % [place] % (Auto) 3.7 (1-9) % Eos % (Auto) 0.1 (0-6) % Baso % (Auto) 0.7 (0-2) % Absolute Neuts (auto) 18.0 H (1.5-7.7) 10^3/ul Absolute Lymphs (auto) 1.2 (1.0-4.8) 10^3/ul Absolute Monos (auto) 0.8 (0-0.8) 10^3/ul Absolute Eos (auto) 0 (0-0.6) 10^3/ul Absolute Basos (auto) 0.1 (0-0.2) 10^3/ul Absolute Nucleated RBC 0 10^3/ul Nucleated RBC % 0 Sodium 128 L (133-145) mmol/L Potassium 2.7 L* (3.5-5.0) mmol/L Chloride 91 L (101-111) mmol/L Carbon Dioxide 23 (22-32) mmol/L Anion Gap 14 H (2-11) mmol/L BUN 11 (6-24) mg/dL Creatinine 0.90 (0.67-1.17) mg/dL Est GFR ( Amer) 108.6 (>60) Est GFR (Non-Af Amer) 84.4 (>60) BUN/Creatinine Ratio 12.2 (8-20) Glucose 106 H (70-100) mg/dL Lactic Acid 2.3 H* (0.5-2.0) mmol/L Calcium 9.7 (8.6-10.3) mg/dL Total Bilirubin 1.10 H (0.2-1.0) mg/dL AST 36 (13-39) U/L ALT 16 (7-52) U/L Alkaline Phosphatase 57 (34-104) U/L Total Creatine Kinase 691 H (10-223) U/L Troponin I 0.12 H* (<0.04) ng/mL Total Protein 6.7 (6.4-8.9) g/dL Albumin 3.0 L (3.2-5.2) g/dL Globulin 3.7 (2-4) g/dL Albumin/Globulin Ratio 0.8 L (1-3) Serum Alcohol < 10 (<10) mg/dL Microbiology and Other Data: Microbiology 03/26/17 00:25 Aerobic Blood Culture - Preliminary Blood Venous No Growth Day 1 Anaerobic Blood Culture - Preliminary No Growth Day 1 Assess/Plan/Problems-Billing Mr Tellez is a 66 yo M with a longstanding h/o alcoholism who started to cut back on drinking about 2 weeks ago on his own was found down outside of his bathroom and brought to the ER for evaluation. He felt to have a possible alcohol withdrawal seizure. - Patient Problems (1) Alcoholism Current Visit: Yes Status: Acute Code(s): F10.20 - ALCOHOL DEPENDENCE, UNCOMPLICATED SNOMED Code(s): 0691516 Comment: The patient's ex- states that all of his friends that visit are alcoholic. ? some alcoholic neuropathy. His friend that visited 03/28 states the patient's cognition is as good as ever. Likely had alcohol withdrawal seizure. (2) Elevated troponin Current Visit: Yes Status: Acute Code(s): R74.8 - ABNORMAL LEVELS OF OTHER SERUM ENZYMES SNOMED Code(s): 361034745 Comment: Likely demand ischemia. Echo did not show any wall motion abnormalities. Chemical stress test ordered for 03/29. Continue tele. (3) Tobacco abuse Current Visit: Yes Status: Acute Code(s): Z72.0 - TOBACCO USE SNOMED Code( s): 042736212 Comment: Encourage smoking cessation. (4) Hypokalemia Current Visit: Yes Status: Acute Code(s): E87.6 - HYPOKALEMIA SNOMED Code( s): 26108651 Comment: Resolved with K+ administration. (5) Hyponatremia Current Visit: Yes Status: Acute Code(s): E87.1 - HYPO-OSMOLALITY AND HYPONATREMIA SNOMED Code(s): 59789283 Comment: Improved. Needs outpt fup.
[2017-03-29 04:49] LABS: Hematocrit 31 % (42-52); Hemoglobin 10.4 g/dl (14.0-18.0); Mean Corpuscular HGB Conc 34 g/dl (31-36); Mean Corpuscular Hemoglobin 31 pg (27-31); Mean Corpuscular Volume 93 fL (80-94); Mean Platelet Volume 9 um3 (7.4-10.4); Red Blood Count 3.32 10^6/ul (4.0-5.4); Red Cell Distribution Width 13 % (10.5-15); White Blood Count 9.9 10^3/ul (3.5-10.8)
[2017-03-29] MEDS: amLODIPine TAB* 5 MG PO SCH ×2 (05:23→08:13)
[2017-03-29] MEDS: Folic Acid TAB* 1 MG PO SCH (08:13)
[2017-03-29] MEDS: Thiamine TAB* 100 MG TAB PO SCH (08:13)
[2017-03-29] MEDS: Heparin VIAL(*) 5000 UNITS/ML VIAL (FIVE THOUSAND) SUBCUT SCH ×2 (08:13→21:09)
[2017-03-29] MEDS: Metoprolol Tartrate TAB* 25 MG PO SCH ×2 (08:13→21:09)
[2017-03-29] MEDS: Multivitamins ADULT w/MIN LIQ* 15 ML UDC PO SCH (08:13)
[2017-03-29] MEDS ORDERED: Aminophylline IV* 25 MG/ML 10 ML VIAL ONE (09:37)
[2017-03-29] MEDS ORDERED: Regadenoson* 0.4 MG/5 ML SYRINGE ONE (09:38)
--- NOTE | 2017-03-29 12:05 | RAD ---
Edited for charges. INDICATION: Elevated troponin. Tobacco use. COMPARISON: No relevant prior exams available on the [facility] PACS for comparison. TECHNIQUE: 10.250 mCi of Tc-99m Myoview were administered IV. SPECT images of the heart were obtained. Later on the same day, under the direction of Dr. Sanchez, the patient was given an IV injection of a pharmacologic stress agent. Subsequently, the patient was given an IV injection of 25.340 mCi Tc-99m Myoview. SPECT images of the heart were obtained and a gated wall motion study was performed. FINDINGS: Moderate RIGHT and smaller LEFT dependent pleural effusions with associated compressive atelectasis. Gated wall motion images were obtained at stress and demonstrate wall motion to be within normal limits. The calculated left ventricular ejection fraction is 56 % at stress. Estimated LEFT ventricular end diastolic volume is 128 mL. TID 1.12. Based on review of the attenuation corrected and non corrected images the distribution of radiopharmaceutical within the myocardium on the stress and rest images is within normal limits. No fixed or reversible regions of hypoperfusion evident. IMPRESSION: 1. No evidence for stress-induced ischemia or presence of an infarct. 2. Dilated LEFT ventricle with estimated end-diastolic volume of 128 mL. Normal range ejection fraction estimated at 56%. Unremarkable cardiac wall motion. ASSESSMENT: LOW RISK. Based on imaging criteria from ACC/AHA 2002 Guideline Update for the Management of Patients With Chronic Stable Angina Table 23. Noninvasive Risk Stratification. MTDD
[2017-03-29] MEDS: Famotidine TAB* 20 MG PO SCH ×2 (12:44→21:09)
--- NOTE | 2017-03-29 15:19 | PN ---
Subjective Date of Service: 03/29/17 Interval History: HOSPITALIST PROGRESS NOTE Patient seen and examined at bedside. He feels well today. Denies chest pain, palpitations. Tolerating diet well with no N/V. Mental status seems to be back to baseline. Family History: Unchanged from Admission Social History: Unchanged from Admission Past Medical History: Unchanged from Admission Objective Active Medications: Acetaminophen (Tylenol Tab*) 650 mg PO Q4H PRN PRN Reason: PAIN Al Hydrox/Mg Hydrox/Simethicone (Maalox Plus*) 30 ml PO Q4H PRN PRN Reason: HEARTBURN Last Admin: 03/28/17 01:49 Dose: 30 ml Albuterol (Ventolin 2.5 Mg/3 Ml Neb.Rivka*) 2.5 mg INH Q2H PRN PRN Reason: SOB/WHEEZING Amlodipine Besylate (Norvasc Tab*) 5 mg PO DAILY [facility] Last Admin: 03/29/17 08:13 Dose: 5 mg Famotidine (Pepcid Tab*) 20 mg PO BID [facility] Last Admin: 03/29/17 12:44 Dose: 20 mg Folic Acid (Folvite Tab*) 1 mg PO DAILY [facility] Last Admin: 03/29/17 08:13 Dose: 1 mg Heparin Sodium (Porcine) (Heparin Vial(*)) 5,000 units SUBCUT Q12HR [facility] Last Admin: 03/29/17 08:13 Dose: 5,000 units Metoprolol Tartrate (Lopressor Tab*) 25 mg PO BID [facility] Last Admin: 03/29/17 08:13 Dose: 25 mg Multivitamins (Theragran W/Minerals Liq*) 15 ml PO DAILY [facility] Last Admin: 03/29/17 08:13 Dose: 15 ml Thiamine HCl (Vitamin B-1 Tab*) 100 mg PO DAILY [facility] Last Admin: 03/29/17 08:13 Dose: 100 mg Vital Signs 03/29/17 03/29/17 03/29/17 00:01 04:40 07:24 Temperature 98.2 F 97.8 F 97.5 F Pulse Rate 81 89 86 Respiratory 16 16 16 Rate Blood Pressure 140/64 178/79 179/77 (mmHg) O2 Sat by Pulse 95 93 95 Oximetry 03/29/17 03/29/17 03/29/17 08:00 09:08 11:26 Temperature Pulse Rate 97 80 Respiratory 16 84 Rate Blood Pressure 153/68 (mmHg) O2 Sat by Pulse 14 96 Oximetry Oxygen Devices in Use Now: None Appearance: Elderly gentleman sitting up in bed in NAD. Eyes: No Scleral Icterus Ears/Nose/Mouth/Throat: Mucous Membranes Moist Neck: Trachea Midline Respiratory: Symmetrical Chest Expansion and Respiratory Effort, Clear to Auscultation Cardiovascular: NL Sounds; No Murmurs; No JVD, RRR Abdominal: NL Sounds; No Tenderness; No Distention Extremities: No Edema Neurological: Alert and Oriented x 3, NL Muscle Strength and Tone Lines/Tubes/Other Access: Clean, Dry and Intact Peripheral IV Nutrition: Taking PO's Result Diagrams: 03/29/17 04:36 03/27/17 05:48 Assess/Plan/Problems-Billing Mr Tellez is a 66 yo M with a longstanding h/o alcoholism who started to cut back on drinking about 2 weeks ago on his own was found down outside of his bathroom and brought to the ER for evaluation. He felt to have a possible alcohol withdrawal seizure. - Patient Problems (1) Alcoholism Comment: - His mental status seems to be back at baseline. - States he's been to rehab at [facility] in 2009, but sobriety didn't last long. Met with SW today, but unsure if he wants to go to inpatient rehab again. - Educated about risks of alcohol consumption, including but not limited too recurrent seizures, permanent brain damage, . Patient verbalizes understanding and states he's motivated to quit. (2) Alcohol withdrawal seizure Comment: - Suspect his presentation was due to alcohol withdrawal seizure. As this was his first episode, AED are not indicated. (3) Hyponatremia Comment: - Improved. (4) Elevated troponin Comment: - Likely demand ischemia in the setting of seizure. - Echo did not show any wall motion abnormalities. - Stress test was low risk. - Discontinue telemetry. (5) DVT prophylaxis Comment: - SQ heparin. (6) Full code status Status and Disposition: Inpatient. Daughter, sister, and ex- updated at bedside.
[2017-03-30] MEDS: Famotidine TAB* 20 MG PO SCH (07:38)
[2017-03-30] MEDS: Thiamine TAB* 100 MG TAB PO SCH (07:39)
[2017-03-30] MEDS: Heparin VIAL(*) 5000 UNITS/ML VIAL (FIVE THOUSAND) SUBCUT SCH (07:39)
[2017-03-30] MEDS: Folic Acid TAB* 1 MG PO SCH (07:39)
[2017-03-30] MEDS: amLODIPine TAB* 5 MG PO SCH (07:39)
[2017-03-30] MEDS: Multivitamins ADULT w/MIN LIQ* 15 ML UDC PO SCH (07:39)
[2017-03-30] MEDS: Metoprolol Tartrate TAB* 25 MG PO SCH (07:39)
[2017-03-30 08:20] VITALS: BP 160/63
--- NOTE | 2017-03-31 03:06 | DS ---
CC: Xiomy Elizondo MD DISCHARGE SUMMARY: DATE OF ADMISSION: 03/25/17 DATE OF DISCHARGE: 03/30/17 PRIMARY CARE PHYSICIAN: Xiomy Elizondo MD. DISCHARGE DIAGNOSES: 1. Altered mental status secondary to possible withdrawal seizure. 2. Mild troponin elevation, likely secondary to demand ischemia. 3. Leukocytosis. 4. Hypokalemia. 5. Alcoholism. 6. Hypertension. 7. Chronic low back pain. MEDICATIONS: 1. Amlodipine 5 mg p.o. daily. 2. Thiamine 100 mg p.o. daily. 3. Multivitamin 1 tablet p.o. daily. 4. Metoprolol tartrate 25 mg p.o. b.i.d. 5. Folic acid 1 mg p.o. daily. 6. Famotidine 20 mg p.o. b.i.d. 7. Maalox Plus 30 mL p.o. q.4 hours p.r.n. heartburn. 8. Acetaminophen 650 mg p.o. q.4 hours p.r.n. pain. HOSPITAL COURSE: Mr. Tellez is a 66-year-old male with a past medical history of alcoholism who pre sented to the emergency room on 03/25/17 after an episode of loss of consciousness. There are repor ts that the patient was trying to quit drinking and as per H and P, he was found outside his [facility]ox hospital floor in a position, confused. For more details about his presentation, refer to his histor y and physical. On admission, there was concern for possible alcohol withdrawal seizure considering that he was trying to stop drinking. He was admitted for further evaluation. A CT of the brain without contrast showed no intracranial mass or hemorrhage. A shoulder x-ray show ed no fracture of the right shoulder. Chest x-ray showed findings consistent with COPD, but no acut e findings. Liver ultrasound showed mildly heterogenous liver compatible with mild hepatic parenchy mal disease and probable small amount of gallbladder sludge. The patient had progressive improvement of his lethargy and eventually returned to his baseline. Th e impression was that his altered mental status was secondary to a possible alcohol withdrawal seizu re. As this was one isolated episode, antiepileptic drugs are not indicated at this point. The pat ient was seen by social worker aide who provided information about the resources in the community to help the patient quit drinking. He was advised that if he does not abstain from alcohol, he is at risk of other episodes of seizure, irreversible brain damage and . This was also discussed this wit h family with his permission and he states that he will return to and he was able to quit in the past and feels like he is able to do it again. The patient had no complaints of chest pain, but he was found to have a mild elevation of troponins with a peak at 0.13. This was felt to be secondary to increased demand in the setting of seizure. He underwent a nuclear pharmacological stress test that showed no evidence for stress-induced ischem ia or infarct. Ejection fraction was estimated at 56% and there was dilation of the left ventricle. A transthoracic echocardiogram showed an ejection fraction of 50% to 55%% with [id number] aor tic regurgitation, mild aortic stenosis, mild mitral regurgitation, moderate tricuspid regurgitation , and moderate pulmonary hypertension. The patient was noted to have leukocytosis on admission and initially there are some concerns for po ssible aspiration and he did receive Zosyn for a couple of days, but the infection was not confirmed and I believe his leukocytosis was probably stress reaction to his seizure. The patient is a smoker and he was advised about the importance of tobacco cessation, but he states that he is not ready to quit at this time. His goal is to focus on quitting alcohol and he will nee d further support to quit smoking in the future. The patient is medically stable for discharge today. The patient was also noted to have blood pressure elevation and he was started on amlodipine with re asonable blood pressure control, but he will need followup with his primary care provider. PHYSICAL EXAMINATION: Vital Signs: Temperature 97.5, heart rate is 89, respiratory rate is 18, oxy gen saturation is 98% on room air, blood pressure is 160/63. General: The patient is elderly male with a disheveled appearance sitting up in the chair in no acute distress. CVS: Normal S1 and S2. Regular rate and rhythm. Chest: Breath sounds bilaterally with no added sounds. Abdomen: Soft, nontender, nondistended. Bowel sounds present. Extremities: No edema. Neuro: He is alert, awake, and oriented x3. Able to move all 4 extremities. DIET: Low salt diet. ACTIVITY: As tolerated. DISPOSITION: To home. STATUS WHILE IN THE HOSPITAL: Inpatient. The patient will be discharged home today to follow up with Dr. Elizondo on April 05. Please keep in mind this is a summarized version of this patient's hospital stay. If you need more i nformation, please feel to call me at [phone] or please obtain the full medical records. TIME SPENT: Approximately 50 minutes was spent to complete this discharge. [id number]/[facility] #: [id number]
== END 2017-03-30 12:24 | disposition home or self-care (01) | DRG 897 ==
LOC: ED 18:57 → MEDTELE 22:49
PROVIDERS: ADMIT Hospitalist; ATTEND Internal Medicine
DX: F10.239 Alcohol dependence with withdrawal, unspecified (principal); E46 Unspecified protein-calorie malnutrition; I24.8 Other forms of acute ischemic heart disease; I36.1 Nonrheumatic tricuspid (valve) insufficiency; G40.509 Epileptic seizures related to external causes, not intractable, without status epilepticus; E87.1 Hypo-osmolality and hyponatremia; Z68.1 Body mass index [BMI] 19.9 or less, adult; Y90.0 Blood alcohol level of less than 20 mg/100 ml; D72.829 Elevated white blood cell count, unspecified; R74.8 Abnormal levels of other serum enzymes; F17.210 Nicotine dependence, cigarettes, uncomplicated; J44.9 Chronic obstructive pulmonary disease, unspecified; M54.5 Low back pain; Z80.9 Family history of malignant neoplasm, unspecified; Z81.1 Family history of alcohol abuse and dependence; Z82.49 Family history of ischemic heart disease and other diseases of the circulatory system; E87.6 Hypokalemia
CPT/HCPCS: 36415; 70450; 71020; 76705; 78452; 80048; 80053; 80320; 82550; 82607; 82728; 82746; 83540; 83550; 83605; 83735; 84146; 84484; 85025; 85610; 87040; 93005; 93017; 93306; 94760; 99406; A9270-GY; A9502; G0480; J0280; J0696; J1644; J2543; J2785; J3480

== ENCOUNTER 2017-06-22 06:18 | Day surgery (SDC) | payer MEDICARE, MEDICAID ==
[~2017-06-22 06:18] MED LIST: Buffered Lidocaine 0.9% SYRIN* 5 ML/SYR SYRINGE INTRADERM ONE
[2017-06-22] MEDS ORDERED: Buffered Lidocaine 0.9% SYRIN* 5 ML/SYR SYRINGE ONE (06:36)
[2017-06-22] MEDS ORDERED: ceFAZolin 2 GM in NS 0.9% 100 ml IVPB ONE (07:00)
[2017-06-22] MEDS ORDERED: Lidocaine 1% INJ* 10 MG/ML 30 ML SDV ONE (07:11)
[2017-06-22] MEDS ORDERED: Metoprolol Tartrate TAB* 25 MG PO ONE (07:30)
[2017-06-22] MEDS ORDERED: Midazolam* 1 MG/ML 5 ML VIAL (5 MG) ONE (07:33)
[2017-06-22] MEDS ORDERED: fentaNYL* 50 MCG/ML 2 ML VIAL (100 MCG VIAL) ONE (08:00)
[2017-06-22] MEDS ORDERED: Ondansetron INJ* 2 MG/ML VIAL IV PRN (08:29)
[2017-06-22] MEDS ORDERED: HYDROcodone/ACETAMIN 5-325 MG* 1 TAB PO PRN (08:29)
[2017-06-22] MEDS ORDERED: fentaNYL* 50 MCG/ML 2 ML VIAL (100 MCG VIAL) IV PRN (08:29)
[2017-06-22] MEDS ORDERED: oxyCODONE TAB* 5 MG TAB PO PRN (08:29)
[2017-06-22] MEDS ORDERED: DiMENhydriNATE IV* 50 MG/ML VIAL IV PUSH PRN (08:29)
--- NOTE | 2017-06-22 08:47 | SURGPN ---
Brief Operative Note - Surgery Procedures: PRE/POSTOP DX: ESOPHAGEAL CA PROC: POWERPORT PLACEMENT, RIGHT IJ. SURG: MECENAS KASSIDY: NONE ANES: LOCAL MAC/SANITO EBL: 5 ML SPEC: NONE DRAIN:NONE COMPL: NONE COND: STABLE TO RR.
[2017-06-22] MEDS ORDERED: Ibuprofen ADULT LIQ* 600 MG/30 ML UDC PO PRN (08:48)
--- NOTE | 2017-06-22 08:55 | RAD ---
INDICATION: chest port placement COMPARISONS: None relevant TECHNIQUE: Fluoroscopy was provided for a vascular access procedure. Total fluoroscopy time is: 6.7 seconds FINDINGS: Spot images demonstrate a right-sided chest port with the tip overlying the cavoatrial junction from a right internal jugular vein approach. IMPRESSION: FLUOROSCOPY WAS PROVIDED FOR A VASCULAR ACCESS PROCEDURE CPT II Codes: 6045F
[2017-06-22 09:31] VITALS: BP 136/64
--- NOTE | 2017-06-24 02:44 | OP ---
CC: Shaji Dong MD; [facility] * DATE OF OPERATION: 06/22/17 - [facility] DATE OF : 50 SURGEON: Francis Kumari MD FRAME AND SCRAP CRUSHER: None. ANESTHESIOLOGIST: Dr. Boyle. ANESTHESIA: Local MAC. PRE-OP DIAGNOSIS: Esophageal carcinoma. POST-OP DIAGNOSIS: Esophageal carcinoma. OPERATIVE PROCEDURE: Placement of right internal jugular PowerPort. ESTIMATED BLOOD LOSS: 5 mL. IV FLUIDS: Crystalloids. SPECIMEN: None. DRAINS: None. COMPLICATIONS: None. COUNTS: Instrument, needle, and sponge counts were correct. DESCRIPTION OF PROCEDURE: The patient was brought to the operating room, placed on the table supine. Sequential compression devices will be placed on both lower extremities. Intravenous sedation was administered. His neck and chest were prepped and draped in usual sterile fashion. A time-out was performed. Local anesthetic was infiltrated for a right internal jugular approach and ultrasound guidance was utilized to access the right internal jugular vein without difficulty. A guidewire was passed into the superior vena cava and the position confirmed under fluoroscopy. Additional anesthetic was then infiltrated into the upper right chest to create the subcutaneous pocket. The transverse incision was created with a 15 blade scalpel and subcutaneous tissues were divided with cautery to raise a flap inferiorly. An 8-Yakut PowerPort catheter was then forward tunneled to the guidewire insertion site after making a counterincision at the insertion site. The peel-away sheath and dilator were then advanced over the guidewire into the superior vena cava under fluoroscopic guidance. The catheter was advanced leaving the tip at the cavo- atrial junction. The catheter was cut to appropriate length and it was connected to the PowerPort, was positioned in the subcutaneous pocket. The port was accessed. It armando and flushed easily. The port was secured with 2-0 Surgipro to the muscle. Wounds were closed with 3-0 Polysorb for subcutaneous tissue in an interrupted fashion. Skin was closed with 4-0 Monocryl in a subcuticular fashion. Steri-Strips were applied. Access needle was placed and the port was again drawn and it flushed with heparinized saline. Tegaderm dressings were applied. The patient tolerated the procedure well and was transferred to Recovery in a stable condition. [id number]/[facility] #: [id number] [facility]
== END 2017-06-22 09:32 | disposition home or self-care (01) ==
LOC: OR 06:18
PROVIDERS: ATTEND Surgery
DX: C15.5 Malignant neoplasm of lower third of esophagus (principal); I10 Essential (primary) hypertension; K21.9 Gastro-esophageal reflux disease without esophagitis; F17.200 Nicotine dependence, unspecified, uncomplicated
CPT/HCPCS: 71010; C1788; J0690; J1642; J2001; J2250; J3010

== ENCOUNTER 2017-07-07 16:26 | Inpatient (IN) | payer MEDICARE, MEDICAID ==
[2017-07-07] MEDS ORDERED: NS 0.9% 1000 ML* 2,000 ML IV ONE (16:30)
[2017-07-07] MEDS ORDERED: Ondansetron INJ* 2 MG/ML VIAL IV ONE (16:30)
[2017-07-07] MEDS ORDERED: Albuterol/Ipratropium NEB.SOL* Albuterol 2.5 MG/Ipratropium 0.5 MG 3 ML INH ONE (16:30)
[2017-07-07 16:57] LABS: Hematocrit 30 % (42-52); Hemoglobin 9.9 g/dl (14.0-18.0); Mean Corpuscular HGB Conc 34 g/dl (31-36); Mean Corpuscular Hemoglobin 33 pg (27-31); Mean Corpuscular Volume 99 fL (80-94); Mean Platelet Volume 8 um3 (7.4-10.4); Red Blood Count 2.97 10^6/ul (4.0-5.4); Red Cell Distribution Width 16 % (10.5-15); White Blood Count 4.8 10^3/ul (3.5-10.8)
[2017-07-07 17:27] LABS: Troponin I 0.42 ng/mL (<0.04)
--- NOTE | 2017-07-07 17:30 | RAD ---
Indication: Dyspnea, pneumonia. Single frontal view of the chest performed at 1708 hours was reviewed. Comparison is made with previous exam dated June 22, 2017, March 26, 2017. No mediastinal shift is noted. Interstitial edema is noted with by basilar infiltrates likely atelectasis. Moderate-sized bilateral pleural effusions are noted. IMPRESSION: INTERSTITIAL EDEMA, BILATERAL PLEURAL EFFUSIONS AND BIBASILAR ATELECTASIS. CENTRAL LINE IS IN PLACE.
[2017-07-07 17:35] LABS: Albumin 3.4 g/dL (3.2-5.2); C Reactive Protein 3.3 mg/L (< 5.00); Calcium 8.5 mg/dL (8.6-10.3); EGFR African American 229.1 (>60); EGFR Non-African American 178.1 (>60); Globulin 3.6 g/dL (2-4); Potassium 3.8 mmol/L (3.5-5.0); Total Bilirubin 0.4 mg/dL (0.2-1.0)
[2017-07-07] MEDS ORDERED: Furosemide IV* 10 MG/ML 10 ML VIAL (100 MG) IV ONE (17:36)
[2017-07-07] MEDS ORDERED: Aspirin Low Dose CHEW TAB* 81 MG PO ONE (17:43)
[2017-07-07] MEDS ORDERED: Acetaminophen TAB* 325 MG PO PRN (18:27)
[2017-07-07] MEDS ORDERED: Al Hydrox/Mg Hydrox/Simet LIQ* 30 ML UDC PO PRN (18:27)
--- NOTE | 2017-07-07 18:43 | ADMNOTE ---
Subjective Date of Service: 07/07/17 Interval History: ADMISSION HISTORY AND PHYSICAL EXAM: Allergies Allergy/AdvReac Type Severity Reaction Status Date / Time Red Dye Allergy Rash Verified 06/22/17 06:40 Home Medications Medication Instructions Recorded Confirmed Type Famotidine TAB* [Pepcid 20 MG TAB*] 20 mg PO BID PRN 04/28/17 07/07/17 History Acetaminophen TAB* [Tylenol TAB*] 650 mg PO Q4H PRN 07/07/17 07/07/17 History Al Hydrox/Mg Hydrox/Simet LIQ* 30 ml PO Q4H PRN 07/07/17 07/07/17 History [Maalox Plus*] Folic Acid TAB* [Folvite TAB*] 1 mg PO DAILY 07/07/17 07/07/17 History Magnesium Chloride-Calcium Car 1 tab PO DAILY 07/07/17 07/07/17 History [Nu-Mag 71.5-119 mg] Magnesium Oxide TAB* [MagOx 400 400 mg PO TID 07/07/17 07/07/17 History TAB*] Metoprolol Tartrate TAB* 25 mg PO BID 07/07/17 07/07/17 History [Lopressor TAB*] Multivitamins/Minerals TAB* 1 tab PO DAILY 07/07/17 07/07/17 History [Theragran/minerals TAB*] Omeprazole CAP* [Prilosec CAP* 20 40 mg PO DAILY 07/07/17 07/07/17 History MG] Potassium Chloride [Klor-Con 40 meq PO DAILY 07/07/17 07/07/17 History Sprinkle] Sertraline* [Zoloft*] 25 mg PO DAILY 07/07/17 07/07/17 History Thiamine TAB* [Vitamin B-1 TAB*] 100 mg PO DAILY 07/07/17 07/07/17 History Vitamin B Complex CAP* [B Complex 1 cap PO DAILY 07/07/17 07/07/17 History CAP*] amLODIPine TAB* [Norvasc 5 mg TAB*] 5 mg PO DAILY 07/07/17 07/07/17 History HPI: The patient was in the [facility] office getting a magnesium IV infusion. He was SOB and was sent for a CTA of the chest. He has been more SOB recently. He denies cough but admits to non-specific occ mild chest pain. He continues to smoke. He is in the last 1 1/2 weeks of RT. Family History: Findings - non-contributory. Social History: Findings - Alcoholic, recently drinking much less. Smoker. Lives alone. SDM is daughter Akilah Tellez. Past Medical History: Findings - [facility]. 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 Review of Systems - Measurements Intake and Output: Intake and Output Last 24 Hours 07/05/17 07/06/17 07/07/17 07/08/17 06:59 06:59 06:59 06:59 Weight 130 lb - Review of Systems Constitutional Symptoms: Positive: Weakness Dermatology: Positive: Normal HEENT: Positive: Normal Eyes: Positive: Normal Thyroid: Positive: Normal Pulmonary: Positive: COPD - mild Cardiology: Positive: Shortness of Breath Gastroenterology: Positive: Heartburn Genital - Urinary: Positive: Nocturia - x 1 Musculoskeletal: Negative: Joint Pain, Joint Stiffness, Arthritis, Osteoporosis, Low Back Pain , Sciatica, Joint Deformities, Kyphoscoliosis, Other Endocrinology: Positive: Normal Hematologic/Lymphatic: Positive: Anemia Neurology: Positive: Normal Psychiatry: Positive: Normal Allergic/Immunologic: Negative: Hx Anaphylaxis, Hx Angioedema, Hx Environmental, Hx Seasonal, Athsma, Hx HIV, Immunocompromise, Swollen Glands LymphNodes, Other Objective Active Medications: Acetaminophen (Tylenol Tab*) 650 mg PO Q4H PRN PRN Reason: PAIN Al Hydrox/Mg Hydrox/Simethicone (Maalox Plus*) 30 ml PO Q4H PRN PRN Reason: INDIGESTION Folic Acid (Folvite Tab*) 1 mg PO DAILY [facility] Heparin Sodium (Porcine) (Heparin Vial(*)) 5,000 units SUBCUT Q8HR AN Magnesium Oxide (Magox 400 Tab*) 400 mg PO TID AN Metoprolol Tartrate (Lopressor Tab*) 25 mg PO BID AN Multivitamins/Minerals (Theragran/Minerals Tab*) 1 tab PO DAILY AN Omeprazole (Prilosec Cap*) 40 mg PO DAILY AN Sertraline HCl (Zoloft*) 25 mg PO DAILY AN Thiamine HCl (Vitamin B-1 Tab*) 100 mg PO DAILY [facility] Vital Signs 07/07/17 07/07/17 07/07/17 16:26 16:35 16:55 Temperature 98.8 F 98.8 F Pulse Rate 172 170 150 Respiratory 32 40 31 Rate Blood Pressure 160/123 160/123 (mmHg) O2 Sat by Pulse 83 88 100 Oximetry 07/07/17 07/07/17 07/07/17 17:00 17:33 17:34 Temperature Pulse Rate 150 106 Respiratory 40 21 Rate Blood Pressure 169/102 122/63 (mmHg) O2 Sat by Pulse 94 94 Oximetry 07/07/17 18:00 Temperature Pulse Rate 108 Respiratory 22 Rate Blood Pressure 110/76 (mmHg) O2 Sat by Pulse 96 Oximetry Oxygen Devices in Use Now: CPAP/BiPAP Appearance: Alert, sitting up on ED stretcher with BIPAP in place. In good spirits, looks comfortable. Neck: No Thyroid Enlargement, Masses - JVD at 60 degrees Respiratory: Symmetrical Chest Expansion and Respiratory Effort, Clear to Percussion, Clear to Palpation Cardiovascular: NL Sounds; No Murmurs; No JVD, RRR, No Edema, - Extremities: No Edema, No Clubbing, Cyanosis, - Skin: No Rash or Ulcers, No Nodules or Sclerosis, - Neurological: Alert and Oriented x 3, NL Sensation Result Diagrams: 07/07/17 16:38 07/07/17 16:38 Assess/Plan/Problems-Billing Assessment: - Patient Problems (1) CHF (congestive heart failure) Current Visit: Yes Status: Acute Code(s): I50.9 - HEART FAILURE, UNSPECIFIED SNOMED Code(s): 02249384 Comment: Furosemide 80 mg IV given in ED. Only about 150 ml output so far, will get bladder scan. Note mild aortic stenosis and good LV function on echo 03/2017. Repeat echo . Repeat troponin, ECG. (2) Esophageal carcinoma Current Visit: No Status: Acute Code(s): C15.9 - MALIGNANT NEOPLASM OF ESOPHAGUS, UNSPECIFIED SNOMED Code(s): 701243957 Comment: Weekly chemo and daily RT. Daughter reports his swallowing has improved. He denies any difficulty swallowing now. (3) Alcoholism Current Visit: No Status: Acute Code(s): F10.20 - ALCOHOL DEPENDENCE, UNCOMPLICATED SNOMED Code(s): 6419850 Comment: He reduced his drinking very much a few months ago when he developed dysphagia. (4) Tobacco abuse Current Visit: No Status: Acute Code(s): Z72.0 - TOBACCO USE SNOMED Code(s ): 615824068 Comment: Pt advised to quit smoking and avoid second hand smoke. (5) Hypomagnesemia Current Visit: Yes Status: Acute Code(s): E83.42 - HYPOMAGNESEMIA SNOMED Code(s): 807823520 Comment: Continue mag oxide. Level 07/08.
--- NOTE | 2017-07-07 18:51 | ED ---
Junior Otero Angela, scribed for Gilbert Brambila MD on 07/07/17 at 1636 . Shortness of Breath - HPI Summary HPI Summary: This pt is a 67 y/o male presenting to [facility] c/o sudden onset of SOB since today. Pt was getting a cat scan of his chest and was supposed to be admitted to the floor. Due to his current condition, he was brought to the ED. Pt endorses chest pain, diaphoresis and nausea. Pt denies fever, vomiting, abd pain. PMHx: esophageal CA. His chest CTA shows no pulmonary embolus. Moderate-sized bilateral pleural effusion with compressive atelectasis of lower lobes. Hx from patient is limited due to in extremis. - History of Current Complaint Hx Obtained From: Patient Hx From Patient Unobtainable Due To: Extremis Onset/Duration: Sudden Onset Timing: Constant Associated Signs & Symptoms: Diaphoresis - and nausea - Allergy/Home Medications Allergies/Adverse Reactions: Allergies Allergy/AdvReac Type Severity Reaction Status Date / Time Red Dye Allergy Rash Verified 06/22/17 06:40 Home Medications: Home Medications Acetaminophen TAB* [Tylenol TAB*] 650 mg PO Q4H PRN 07/07/17 [History Confirmed 07/07/17] Al Hydrox/Mg Hydrox/Simet LIQ* [Maalox Plus*] 30 ml PO Q4H PRN 07/07/17 [ History Confirmed 07/07/17] Folic Acid TAB* [Folvite TAB*] 1 mg PO DAILY 07/07/17 [History Confirmed ] Magnesium Chloride-Calcium Car [Nu-Mag 71.5-119 mg] 1 tab PO DAILY 07/07/17 [ History Confirmed 07/07/17] Magnesium Oxide TAB* [MagOx 400 TAB*] 400 mg PO TID 07/07/17 [History Confirmed 07/07/17] Metoprolol Tartrate TAB* [Lopressor TAB*] 25 mg PO BID 07/07/17 [History Confirmed 07/07/17] Multivitamins/Minerals TAB* [Theragran/minerals TAB*] 1 tab PO DAILY 07/07/17 [ History Confirmed 07/07/17] Omeprazole CAP* [Prilosec CAP* 20 MG] 40 mg PO DAILY 07/07/17 [History Confirmed 07/07/17] Potassium Chloride [Klor-Con Sprinkle] 40 meq PO DAILY 07/07/17 [History Confirmed 07/07/17] Sertraline* [Zoloft*] 25 mg PO DAILY 07/07/17 [History Confirmed 07/07/17] Thiamine TAB* [Vitamin B-1 TAB*] 100 mg PO DAILY 07/07/17 [History Confirmed ] Vitamin B Complex CAP* [B Complex CAP*] 1 cap PO DAILY 07/07/17 [History Confirmed 07/07/17] amLODIPine TAB* [Norvasc 5 mg TAB*] 5 mg PO DAILY 07/07/17 [History Confirmed ] PMH/Surg Hx/FS Hx/Imm Hx Endocrine/Hematology History: Denies: Hx Diabetes Cardiovascular History: Denies: Hx Angina, Hx Coronary Artery Disease, Hx Hypercholesterolemia, Hx Hypertension, Hx Myocardial Infarction, Hx Valvular Heart Disease, Other Cardiovascular Problems/Disorders Respiratory History: Denies: Hx Chronic Obstructive Pulmonary Disease (COPD), Other Respiratory Problems/Disorders GI History: Reports: Hx Gastroesophageal Reflux Disease History: Denies: Hx Dialysis, Hx Renal Disease Musculoskeletal History: Reports: Hx Back Problems Denies: Other Musculoskeletal History Sensory History: Reports: Hx Contacts or Glasses Denies: Hx Hearing Aid Opthamlomology History: Reports: Hx Contacts or Glasses Neurological History: Denies: Hx Dementia, Hx Seizures Psychiatric History: Reports: Hx Depression - on meds - Cancer History Cancer Type, Location and Year: ESOPHAGEAL CA Hx Chemotherapy: Yes - Surgical History Surgery Procedure, Year, and Place: APPENDECTOMY Hx Anesthesia Reactions: No - Immunization History Date of Tetanus Vaccine: unk Date of Influenza Vaccine: unk - Family History Known Family History: Negative: Hypertension, Diabetes - Social History Alcohol Use: None Alcohol Amount: 4-5 beers/day per pt Substance Use Type: Reports: None Hx Tobacco Use: Yes Smoking Status (MU): Current Every Day Smoker Type: Cigarettes Amount Used/How Often: 1/2 PPD Review of Systems Positive: Skin Diaphoresis. Negative: Fever, Chills Eyes: Negative ENT: Negative Negative: Palpitations Positive: Shortness Of Breath Positive: Nausea. Negative: Abdominal Pain, Vomiting Positive: no symptoms reported Musculoskeletal: Negative Negative: Headache, Weakness, Numbness Psychological: Normal All Other Systems Reviewed And Are Negative: Yes Physical Exam - Summary Physical Exam Summary: The patient is well-nourished in no acute distress and in no acute pain. The skin is warm. The pt is pale and diaphoretic. HEENT: The head is normocephalic and atraumatic. The pupils are equal and reactive. The conjunctivae are clear and without drainage. Nares are patent and without drainage. Mouth reveals dry mucous membranes and the throat is without erythema and exudate. The external ears are intact. The ear canals are patent and without drainage. The tympanic membranes are intact. Neck is supple with full range of motion and non-tender. There is no neck vein distension. Respiratory: There are diminished breath sounds throughout. Cardiovascular: Heart is irregular and tachycardic. There is no peripheral edema and pulses are symmetrical and equal. Abdomen: The abdomen is soft and non-tender. There are normal bowel sounds heard in all four quadrants and there is no organomegaly palpated. Musculoskeletal: Extremities are non-tender with full range of motion. The capillary refill is of 4 seconds. There is no peripheral edema or calf tenderness elicited. Neurological: Patient is alert and oriented to person, place and time. The patient has symmetrical motor strength in all four extremities. Psychiatric: The patient has an appropriate affect and does not exhibit any anxiety or depression. Triage Information Reviewed: Yes Vital Signs On Initial Exam: Initial Vitals Temp Pulse Resp BP Pulse Ox 98.8 F 172 32 160/123 83 07/07/17 16:26 07/07/17 16:26 07/07/17 16:26 07/07/17 16:26 07/07/17 16:26 Vital Signs Reviewed: Yes Completion Of Physical Exam Limited Due To: Extremis Diagnostics - Vital Signs Vital Signs Temp Pulse Resp BP Pulse Ox 07/07/17 18:00 108 22 110/76 96 07/07/17 17:34 106 21 94 07/07/17 17:33 122/63 07/07/17 17:00 150 40 169/102 94 07/07/17 16:55 150 31 100 07/07/17 16:35 98.8 F 170 40 160/123 88 07/07/17 16:26 98.8 F 172 32 160/123 83 - Laboratory Lab Results: Lab Results 07/07/17 07/07/17 07/07/17 Range/Units 16:38 16:38 16:38 WBC 4.8 (3.5-10.8) 10^3/ul RBC 2.97 L (4.0-5.4) 10^6/ul Hgb 9.9 L (14.0-18.0) g/dl Hct 30 L (42-52) % MCV 99 H (80-94) fL MCH 33 H (27-31) pg MCHC 34 (31-36) g/dl RDW 16 H (10.5-15) % Plt Count 128 L (150-450) 10^3/ul MPV 8 (7.4-10.4) um3 Neut % (Auto) 73.0 (38-83) % Lymph % (Auto) 15.5 L (25-47) % [place] % (Auto) 8.9 (1-9) % Eos % (Auto) 1.7 (0-6) % Baso % (Auto) 0.9 (0-2) % Absolute Neuts (auto) 3.5 (1.5-7.7) 10^3/ul Absolute Lymphs (auto) 0.7 L (1.0-4.8) 10^3/ul Absolute Monos (auto) 0.4 (0-0.8) 10^3/ul Absolute Eos (auto) 0.1 (0-0.6) 10^3/ul Absolute Basos (auto) 0 (0-0.2) 10^3/ul Absolute Nucleated RBC 0.01 10^3/ul Nucleated RBC % 0.2 INR (Anticoag Therapy) (0.89-1.11) APTT (26.0-36.3) seconds Sodium 136 (133-145) mmol/L Potassium 3.8 (3.5-5.0) mmol/L Chloride 104 (101-111) mmol/L Carbon Dioxide 22 (22-32) mmol/L Anion Gap 10 (2-11) mmol/L BUN 16 (6-24) mg/dL Creatinine 0.47 L (0.67-1.17) mg/dL Est GFR ( Amer) 229.1 (>60) Est GFR (Non-Af Amer) 178.1 (>60) BUN/Creatinine Ratio 34.0 H (8-20) Glucose 165 H (70-100) mg/dL Lactic Acid 6.7 H* (0.5-2.0) mmol/L Calcium 8.5 L (8.6-10.3) mg/dL Total Bilirubin 0.40 (0.2-1.0) mg/dL AST 14 (13-39) U/L ALT 7 (7-52) U/L Alkaline Phosphatase 56 (34-104) U/L Troponin I 0.42 H* (<0.04) ng/mL C-Reactive Protein 3.30 (< 5.00) mg/L B-Natriuretic Peptide ( - 100) pg/mL Total Protein 7.0 (6.4-8.9) g/dL Albumin 3.4 (3.2-5.2) g/dL Globulin 3.6 (2-4) g/dL Albumin/Globulin Ratio 0.9 L (1-3) 07/07/17 07/07/17 Range/Units 16:38 16:38 WBC (3.5-10.8) 10^3/ul RBC (4.0-5.4) 10^6/ul Hgb (14.0-18.0) g/dl Hct (42-52) % MCV (80-94) fL MCH (27-31) pg MCHC (31-36) g/dl RDW (10.5-15) % Plt Count (150-450) 10^3/ul MPV (7.4-10.4) um3 Neut % (Auto) (38-83) % Lymph % (Auto) (25-47) % [place] % (Auto) (1-9) % Eos % (Auto) (0-6) % Baso % (Auto) (0-2) % Absolute Neuts (auto) (1.5-7.7) 10^3/ul Absolute Lymphs (auto) (1.0-4.8) 10^3/ul Absolute Monos (auto) (0-0.8) 10^3/ul Absolute Eos (auto) (0-0.6) 10^3/ul Absolute Basos (auto) (0-0.2) 10^3/ul Absolute Nucleated RBC 10^3/ul Nucleated RBC % INR (Anticoag Therapy) 0.94 (0.89-1.11) APTT 29.9 (26.0-36.3) seconds Sodium (133-145) mmol/L Potassium (3.5-5.0) mmol/L Chloride (101-111) mmol/L Carbon Dioxide (22-32) mmol/L Anion Gap (2-11) mmol/L BUN (6-24) mg/dL Creatinine (0.67-1.17) mg/dL Est GFR ( Amer) (>60) Est GFR (Non-Af Amer) (>60) BUN/Creatinine Ratio (8-20) Glucose (70-100) mg/dL Lactic Acid (0.5-2.0) mmol/L Calcium (8.6-10.3) mg/dL Total Bilirubin (0.2-1.0) mg/dL AST (13-39) U/L ALT (7-52) U/L Alkaline Phosphatase (34-104) U/L Troponin I (<0.04) ng/mL C-Reactive Protein (< 5.00) mg/L B-Natriuretic Peptide 2982 H ( - 100) pg/mL Total Protein (6.4-8.9) g/dL Albumin (3.2-5.2) g/dL Globulin (2-4) g/dL Albumin/Globulin Ratio (1-3) Result Diagrams: 07/07/17 16:38 07/07/17 16:38 Lab Statement: Any lab studies that have been ordered have been reviewed, and results considered in the medical decision making process. - Radiology Chest XR Xray Interpretation: Positive (See Comments) - IMPRESSION: Interstitial edema, bilateral pleural effusions and bibasilar atelectasis. Central line is in place. ED physician has reviewed this radiology report and agrees. Radiology Interpretation Completed By: Radiologist - EKG 17:30 Cardiac Rate: Tachycardia EKG Rhythm: Sinus Rhythm ST Segment: Non-Specific EKG Interpretation: Normal [place]. Prolonged QT intervals. No STEMI. Re-Evaluation - Re-Evaluation 18:05 Re-Evaluation Time: 18:05 Comment: Pt is feeling much better. His color is better. Pt has no SOB and no chest pain currently. I discussed the findings of NSTEMI and the plan to admit, pt is agreeable with this plan. Course/Dx - Course Course Of Treatment: This pt is a 67 y/o male presenting to [facility] c/o sudden onset of SOB since today. Pt was getting a cat scan of his chest and was supposed to be admitted to the floor. Due to his current condition, he was brought to the ED. Pt endorses chest pain, diaphoresis and nausea. In the ED course, the pt was given 324 mg of ASA, Lasix IV 80 mg, zofran, and IV fluids. Pt was given a respiratory therapy and nebulizer. Chest XR reveals interstitial edema, bilateral pleural effusions and bibasilar atelectasis. Central line is in place. Elevated BP noted. I spoke with Dr. Chanel who recommended to admit the pt to the ICU. I called Dr. Richter who referred me to the hospitalist for admission. Pt will be admitted. - Diagnoses Differential Diagnosis/HQI/PQRI: Positive: CHF, AL, Pneumonia, Pulmonary Embolism, Other - renal failure Provider Diagnoses: Pulmonary edema, Acute dyspnea, NSTEMI (non-ST elevated myocardial infarction) , Esophageal cancer - Physician Notifications Discussed Care of Patient With: Mj Chanel Time Discussed With Above Provider: 17:50 Instructed by Provider To: Other - Dr. Chanel recommends to admit the pt to the ICU. 17:55 - I spoke with Dr. Richter, who referred me to the hospitalist. - Critical Care Time Critical Care Time: 30-74 min - 45 minutes Discharge - Discharge Plan Condition: Stable Disposition: ADMITTED TO [facility] documentation as recorded by the Junior rao Angela accurately reflects the service I personally performed and the decisions made by me, Gilbert Brambila MD.
[2017-07-07] MEDS ORDERED: Magnesium Oxide TAB* 400 MG PO SCH (21:00)
[2017-07-07] MEDS: Heparin VIAL(*) 5000 UNITS/ML VIAL (FIVE THOUSAND) SUBCUT SCH (21:56)
[2017-07-07] MEDS: Potassium Chlor TAB* 20 MEQ TAB.ER PO SCH (21:56)
[2017-07-07] MEDS: Metoprolol Tartrate TAB* 25 MG PO SCH (21:56)
[2017-07-08 06:07] LABS: BUN/Creatinine Ratio 33.3 (8-20); Calcium 8.3 mg/dL (8.6-10.3); EGFR African American 260.8 (>60); EGFR Non-African American 202.8 (>60); Magnesium 1.4 mg/dL (1.9-2.7)
[2017-07-08 06:10] LABS: Potassium 2.7 mmol/L (3.5-5.0)
[2017-07-08] MEDS: Heparin VIAL(*) 5000 UNITS/ML VIAL (FIVE THOUSAND) SUBCUT SCH ×3 (06:13→21:55)
[2017-07-08] MEDS ORDERED: Magnesium Sulfate 2 GM IV* 2 GM/50 ML BAG IVPB ONE (07:12)
[2017-07-08] MEDS ORDERED: Magnesium Sulf 4 GM/100 ML IV* 4,000 MG/100 ML BAG IVPB ONE (07:23)
--- NOTE | 2017-07-08 07:50 | PN ---
Progress Note - Progress Note Date of Service: 07/08/17 SOAP: Subjective: reports that he feels "much better" today. very little recollection of the events leading up to his respiratory decompensation. Does not remember going for the CTA yesterday. Still actively drinking, last drink 2 days ago. He does not feel shaky or like he is in withdrawal at this point (though did have ETOH wd seizures in March of this year). swallowing normally. feels like he is breathing essentially normally. denies fevers at home. Objective: Vital Signs Temp Pulse Resp BP Pulse Ox 99.1 F 102 17 127/68 99 07/08/17 07:25 07/08/17 07:00 07/08/17 07:37 07/08/17 07:00 07/08/17 07:00 lying on side in NAD perr eomi op moist dec bs bases s1 s2 nl soft nt +bs no le edema A+O x 3, nonfocal neurological exam Laboratory Results - last 24 hr 07/07/17 07/07/17 07/07/17 16:38 16:38 16:38 WBC 4.8 RBC 2.97 L Hgb 9.9 L Hct 30 L MCV 99 H MCH 33 H MCHC 34 RDW 16 H Plt Count 128 L MPV 8 Neut % (Auto) 73.0 Lymph % (Auto) 15.5 L [place] % (Auto) 8.9 Eos % (Auto) 1.7 Baso % (Auto) 0.9 Absolute Neuts (auto) 3.5 Absolute Lymphs (auto) 0.7 L Absolute Monos (auto) 0.4 Absolute Eos (auto) 0.1 Absolute Basos (auto) 0 Absolute Nucleated RBC 0.01 Nucleated RBC % 0.2 INR (Anticoag Therapy) APTT Sodium 136 Potassium 3.8 Chloride 104 Carbon Dioxide 22 Anion Gap 10 BUN 16 Creatinine 0.47 L Est GFR ( Amer) 229.1 Est GFR (Non-Af Amer) 178.1 BUN/Creatinine Ratio 34.0 H Glucose 165 H Lactic Acid 6.7 H* Calcium 8.5 L Magnesium Total Bilirubin 0.40 AST 14 ALT 7 Alkaline Phosphatase 56 Troponin I 0.42 H* C-Reactive Protein 3.30 B-Natriuretic Peptide Total Protein 7.0 Albumin 3.4 Globulin 3.6 Albumin/Globulin Ratio 0.9 L 0807/07/17 07/07/17 16:38 16:38 20:36 WBC RBC Hgb Hct MCV MCH MCHC RDW Plt Count MPV Neut % (Auto) Lymph % (Auto) [place] % (Auto) Eos % (Auto) Baso % (Auto) Absolute Neuts (auto) Absolute Lymphs (auto) Absolute Monos (auto) Absolute Eos (auto) Absolute Basos (auto) Absolute Nucleated RBC Nucleated RBC % INR (Anticoag Therapy) 0.94 APTT 29.9 Sodium Potassium Chloride Carbon Dioxide Anion Gap BUN Creatinine Est GFR ( Amer) Est GFR (Non-Af Amer) BUN/Creatinine Ratio Glucose Lactic Acid Calcium Magnesium Total Bilirubin AST ALT Alkaline Phosphatase Troponin I 0.41 H* C-Reactive Protein B-Natriuretic Peptide 2982 H Total Protein Albumin Globulin Albumin/Globulin Ratio 07/08/17 05:18 WBC RBC Hgb Hct MCV MCH MCHC RDW Plt Count MPV Neut % (Auto) Lymph % (Auto) [place] % (Auto) Eos % (Auto) Baso % (Auto) Absolute Neuts (auto) Absolute Lymphs (auto) Absolute Monos (auto) Absolute Eos (auto) Absolute Basos (auto) Absolute Nucleated RBC Nucleated RBC % INR (Anticoag Therapy) APTT Sodium 137 Potassium 2.7 L* Chloride 103 Carbon Dioxide 27 Anion Gap 7 BUN 14 Creatinine 0.42 L Est GFR ( Amer) 260.8 Est GFR (Non-Af Amer) 202.8 BUN/Creatinine Ratio 33.3 H Glucose 98 Lactic Acid Calcium 8.3 L Magnesium 1.4 L Total Bilirubin AST ALT Alkaline Phosphatase Troponin I C-Reactive Protein B-Natriuretic Peptide Total Protein Albumin Globulin Albumin/Globulin Ratio Acetaminophen (Tylenol Tab*) 650 mg PO Q4H PRN PRN Reason: PAIN Al Hydrox/Mg Hydrox/Simethicone (Maalox Plus*) 30 ml PO Q4H PRN PRN Reason: INDIGESTION Folic Acid (Folvite Tab*) 1 mg PO DAILY [facility] Heparin Sodium (Porcine) (Heparin Vial(*)) 5,000 units SUBCUT Q8HR [facility] Last Admin: 07/08/17 06:13 Dose: 5,000 units Potassium Chloride (Potassium Chloride 20 Meq/100 Ml Ivpremix*) 20 meq in 100 mls @ 50 mls/hr IV Q2H [facility] Stop: 07/08/17 13:59 Magnesium Sulfate (Magnesium Sulf 4 Gm/100 Ml Iv*) 4,000 mg in 100 mls @ 33.333 mls/hr IVPB ONCE ONE Stop: 07/08/17 10:22 Magnesium Oxide (Magox 400 Tab*) 800 mg PO TID [facility] Metoprolol Tartrate (Lopressor Tab*) 25 mg PO BID [facility] Last Admin: 07/07/17 21:56 Dose: 25 mg Multivitamins/Minerals (Theragran/Minerals Tab*) 1 tab PO DAILY [facility] Omeprazole (Prilosec Cap*) 40 mg PO DAILY [facility] Potassium Chloride (Klor Con Er Tab*) 20 meq PO TID [facility] Last Admin: 07/07/17 21:56 Dose: 20 meq Sertraline HCl (Zoloft*) 25 mg PO DAILY AN Spironolactone (Aldactone Tab*) 50 mg PO DAILY [facility] Thiamine HCl (Vitamin B-1 Tab*) 100 mg PO DAILY [facility] Assessment: 67 yo M w active ETOH abuse and esophageal CA on combined modality therapy with carbo/taxol/RT presenting with respiratory decompensation that appears to be related to fluid overload/heart failure given response to diuretics and markedly elevated BNP. Plan: -Echocardiogram this am (repeat given new heart failure symptoms) -started on lasix but will change to spironolactone given hypokalemia -aggressive repletion of potassium and magnesium (chemotherapy induced abnormalities) -titrate O2 as tolerated, can likely transfer out to tele today -ok to do RT today once O2 titrated down -may need cards consult depending on ECHO results ETOH abuse: still drinking upwards of 6 beers per day, last 2 days ago. -[facility] protocol full code heparin DVT prophylaxis
[2017-07-08] MEDS ORDERED: LORazepam TAB(*) 1 MG PO SCH (08:00)
[2017-07-08] MEDS: KCL 20 MEQ/100 ML IVPREMIX* 20 MEQ/100 ML BAG IV SCH ×3 (08:31→12:35)
[2017-07-08] MEDS ORDERED: Furosemide TAB* 20 MG PO SCH (09:00)
--- NOTE | 2017-07-08 10:02 | ECHO ---
Patient: TY CHOWDARY [facility] Rec#: [id number] : 1950 Date: 07/08/2017 Age: 67y Height: 175.26 cm / 69.0 in Weight: 58.51 kg / 129.0 lbs Sex: M BSA: 1.71 Admit Date#: 07/07/2017 Type: Inpatient Referring: Bert Tidwell MD Reading: Thomas Wilkins DO [employer] Operator: Lashay Razo RDCS CC: Xiomy Elizondo MD Transthoracic Echocardiogram Indication: CHF BP: 115/72 HR: 82 Rhythm: NSR with PVCs Findings History: Smoker, esophageal cancer 04/24, ETOH abuse. Technical Comments: The study quality is good. Completed at 0845. Left Ventricle: The left ventricular chamber size is normal. Mild concentric left ventricular hypertrophy is observed. Left ventricular systolic function is at the lower limits of normal. The estimated ejection fraction is 50-55%. The assessment of diastolic function is non-diagnostic.due to the degree of mitral regurgitation Left Atrium: The left atrium is severely dilated. Right Ventricle: The right ventricular cavity size is normal. The right ventricular global systolic function is mildly reduced. Right Atrium: The right atrium is mildly dilated. A prominent chiari network is noted in the right atrium. Aortic Valve: The aortic valve is trileaflet. Mild aortic leaflet calcification is visualized. Systolic excursion of the aortic valve cusps is reduced. There is moderate aortic regurgitation. There is mild aortic stenosis. The mean gradient of the aortic valve is 11.7 mmHg. The aortic valve area, by peak velocities, is calculated at 1.12 cm2. The aortic valve area, by VTI's, is calculated at 1.04 cm2. Mitral Valve: Moderate mitral annular calcification present. The mitral valve leaflets appear redundant. There is severe mitral regurgitation. There is no evidence of mitral stenosis. Tricuspid Valve: The tricuspid valve leaflets are mildly thickened. There is mild tricuspid regurgitation. The right ventricular systolic pressure is estimated at 53 mmHg. There is evidence of moderate pulmonary hypertension. There is no tricuspid stenosis. Pulmonic Valve: The pulmonic valve appears normal. There is mild pulmonic regurgitation. There is no pulmonic stenosis. Pericardium: There is no significant pericardial effusion. A left pleural effusion is present. Aorta: There is no dilatation of the ascending aorta. There is no dilatation of the aortic arch. The aortic root is normal in size. Pulmonary Artery: The main pulmonary artery is not well visualized. Venous: The inferior vena cava is dilated. There is an approximate 50% respiratory change in the inferior vena cava dimension. Conclusions The left ventricular chamber size is normal. Mild concentric left ventricular hypertrophy is observed. Left ventricular systolic function is at the lower limits of normal. The estimated ejection fraction is 50-55%. The left atrium is severely dilated. The right ventricular cavity size is normal. The right ventricular global systolic function is mildly reduced. There is mild aortic stenosis. There is moderate aortic regurgitation. There is severe mitral regurgitation. There is moderate mitral annulus calcification. There is mild tricuspid regurgitation. There is evidence of moderate pulmonary hypertension. With direct imaging comparison from 03/2017 echo, the LVEF calculated similar but appears lower now, there is a new pleural effusion, there appears to be new severe mitral regurgitation. Evaluation limited on transthoracic imaging but appears to be ischemic related to posterior mitral leaflet restriction possibly from a recent inferolateral wall MT. Measurements Name Value Normal Range RVIDd (AP) 2D 3.3 cm (0.9 - 2.6) RVDdMajor (2D) 3.9 cm (2.2 - 4.4) RAd ISD 4CH 5.2 cm (3.4 - 4.9) RA (A4C)W 3.9 cm (2.9 - 4.6) IVSd (2D) 1.1 cm (0.6 - 1) LVPWd (2D) 1.1 cm (0.6 - 1) LVIDd (2D) 5 cm (3.6 - 5.4) LVIDs (2D) 3.8 cm - LV FS (2D) 24 % (25 - 45) Aortic Annulus 1.7 cm (1.4 - 2.6) Ao root diameter (2D) 3.4 cm (2.1 - 3.5) Ascending Ao 3 cm (2.1 - 3.4) Aortic arch 3.1 cm (1.8 - 3.4) LA dimension (AP) 2D 5 cm (2.3 - 3.8) LAd ISD 4CH 5.8 cm (2.9 - 5.3) LA ISD 4CH W 5.3 cm (2.5 - 4.5) Name Value Normal Range LA ESV SP 4CH (A/L) 91 ml - LA ESV SP 2CH (A/L) 155 ml - LA ESV BP (A/L) 126 ml - LA ESV BP (A/L) index 73.33 ml/m2 - LA ESV SP 4CH (MOD) 76 ml - LA ESV SP 2CH (MOD) 147 ml - Name Value Normal Range MV E-wave Vmax 1.32 m/sec - MV deceleration time 178.1 msec - MV A-wave Vmax 0.64 m/sec - MV E:A ratio 2 ratio - LV septal e' Vmax 0.03 m/sec - LV lateral e' Vmax 0.07 m/sec - LV E:e' septal ratio 44 ratio - LV E:e' lateral ratio 18.86 ratio - Name Value Normal Range AV Vmax 2.43 m/sec - AV VTI 47.9 cm - AV peak gradient 23.6 mmHg - AV mean gradient 11.7 mmHg - LVOT diameter 2 cm - LVOT Vmax 0.87 m/sec - LVOT VTI 15.85 cm - LVOT peak gradient 3 mmHg - LVOT mean gradient 1.7 mmHg - STEWART (continuity Vmax) 1.12 cm2 - STEWART (continuity VTI) 1.04 cm2 - AR PHT 299.6 msec - AR peak gradient 80.36 mmHg - MICHELINE Vmax 0.38 m/sec - Name Value Normal Range MV Vmax 1.39 m/sec - MV VTI 33.85 cm - MV peak gradient 7.77 mmHg - MV mean gradient 3.51 mmHg - MV PHT 64.97 msec - MR Vmax 6.5 m/sec - MR VTI 205 cm - MR PISA radius 0.89 cm - MVA (PHT) 3.38 cm2 - MVA (continuity VTI) 1.5 cm2 - Name Value Normal Range TR Vmax 3.08 m/sec - TR peak gradient 38 mmHg - RAP 15 mmHg - RVSP 53 mmHg - IVC diameter 2.1 cm - Name Value Normal Range PV Vmax 0.55 m/sec - PV peak gradient 1.2 mmHg -
[2017-07-08] MEDS: Magnesium Oxide TAB* 400 MG PO SCH ×3 (10:17→21:54)
[2017-07-08] MEDS: Spironolactone TAB* 25 MG PO SCH (10:17)
[2017-07-08] MEDS: Potassium Chlor TAB* 20 MEQ TAB.ER PO SCH (10:17)
[2017-07-08] MEDS: Sertraline* 25 MG TAB PO SCH (10:17)
[2017-07-08] MEDS: Thiamine TAB* 100 MG TAB PO SCH (10:17)
[2017-07-08] MEDS: Multivitamins/Minerals TAB PO SCH (10:17)
[2017-07-08] MEDS: Folic Acid TAB* 1 MG PO SCH (10:17)
[2017-07-08] MEDS: Omeprazole CAP* 20 MG PO SCH (10:17)
[2017-07-08] MEDS: Metoprolol Tartrate TAB* 25 MG PO SCH ×2 (10:17→21:55)
--- NOTE | 2017-07-08 10:45 | CONSULT ---
Subjective Date of Service: 07/08/17 Interval History: Admission Date: 07/07/17 Consult date 07/08/2017 PMD: Xiomy Elizondo MD Oncologist: Dr. Chanel CC: dyspnea Reason for consult: CHF, severe mitral regurgitation HOSPITAL COURSE: Mr. Tellez is a 67-year-old male with a past medical history of ongoing alcoholism, tobacco use, esophageal cancer who presents with dyspnea and found with congestive heart failure. He actually does not remember how he got into the hospital. He had some epigastric belching about a week ago lasting for 30 minutes. Other than that he denies any chest, shoulder, neck, jaw, arm or GI discomfort to me. He has had dyspnea on exertion for about a month or two. He is currently receiving treatment for his chemotherapy and followed by Dr. Chanel. He was found with new severe mitral regurgitation since prior echo 03/2017. His LVEF is about 50% but this is relatively low given the degree of MR. The mechanism appears to be ischemic related from posterior mitral valve leaflet restriction but full evaluation limited by the limitations of transthoracic imaging. He may have had an inferolateral wall AK within the last few months. His weight is decreased 14 pounds over last 3 months. He received IV diuretics with adequate UOP and improvement in respiratory status although potassium dropped to 2.7 now on aldactone and received potassium replacement. PAST MEDICAL HISTORY: Alcoholism ongoing Tobacco use GERD Esophageal cancer HTN Tremor Peripheral neuropathy Surgical hx: R IJ port placement ALLERGIES: None to medications, red dye FAMILY HISTORY: Mother with vulvar cancer at age 85 related to this.. Sister with breast cancer at age 40 and currently at 63. Brother with lung cancer at 68. Maternal aunt with breast cancer at 70. Father at age 80 of hemochromatosis and essential tremor. SOCIAL HISTORY: Alcohol and tobacco abuse, Patient lives alone. Formerly worked as a contractor. He is , one child Medications Active Medications: Acetaminophen (Tylenol Tab*) 650 mg PO Q4H PRN PRN Reason: PAIN Al Hydrox/Mg Hydrox/Simethicone (Maalox Plus*) 30 ml PO Q4H PRN PRN Reason: INDIGESTION Aspirin (Aspirin Ec Low Dose*) 81 mg PO DAILY [facility] Atorvastatin Calcium (Lipitor*) 20 mg PO 2100 [facility] Folic Acid (Folvite Tab*) 1 mg PO DAILY [facility] Last Admin: 07/08/17 10:17 Dose: 1 mg Heparin Sodium (Porcine) (Heparin Vial(*)) 5,000 units SUBCUT Q8HR [facility] Last Admin: 07/08/17 06:13 Dose: 5,000 units Potassium Chloride (Potassium Chloride 20 Meq/100 Ml Ivpremix*) 20 meq in 100 mls @ 50 mls/hr IV Q2H [facility] Stop: 07/08/17 13:59 Last Admin: 07/08/17 10:38 Dose: 50 mls/hr Lorazepam (Ativan Tab(*)) 0 - 6 mg PO .PER [facility] PROTOCOL [facility] PRN Reason: Protocol Magnesium Oxide (Magox 400 Tab*) 800 mg PO TID [facility] Last Admin: 07/08/17 10:17 Dose: 800 mg Metoprolol Tartrate (Lopressor Tab*) 25 mg PO BID [facility] Last Admin: 07/08/17 10:17 Dose: 25 mg Multivitamins/Minerals (Theragran/Minerals Tab*) 1 tab PO DAILY [facility] Last Admin: 07/08/17 10:17 Dose: 1 tab Omeprazole (Prilosec Cap*) 40 mg PO DAILY [facility] Last Admin: 07/08/17 10:17 Dose: 40 mg Potassium Chloride (Klor Con Er Tab*) 20 meq PO TID [facility] Last Admin: 07/08/17 10:17 Dose: 20 meq Sertraline HCl (Zoloft*) 25 mg PO DAILY [facility] Last Admin: 07/08/17 10:17 Dose: 25 mg Spironolactone (Aldactone Tab*) 50 mg PO DAILY [facility] Last Admin: 07/08/17 10:17 Dose: 50 mg Thiamine HCl (Vitamin B-1 Tab*) 100 mg PO DAILY [facility] Last Admin: 07/08/17 10:17 Dose: 100 mg Home Medications: Famotidine TAB* [Pepcid 20 MG TAB*] 20 mg PO BID PRN 04/28/17 [History Confirmed 07/07/17] Acetaminophen TAB* [Tylenol TAB*] 650 mg PO Q4H PRN 07/07/17 [History Confirmed 07/07/17] Al Hydrox/Mg Hydrox/Simet LIQ* [Maalox Plus*] 30 ml PO Q4H PRN 07/07/17 [ History Confirmed 07/07/17] Folic Acid TAB* [Folvite TAB*] 1 mg PO DAILY 07/07/17 [History Confirmed ] Magnesium Chloride-Calcium Car [Nu-Mag 71.5-119 mg] 1 tab PO DAILY 07/07/17 [ History Confirmed 07/07/17] Magnesium Oxide TAB* [MagOx 400 TAB*] 400 mg PO TID 07/07/17 [History Confirmed 07/07/17] Metoprolol Tartrate TAB* [Lopressor TAB*] 25 mg PO BID 07/07/17 [History Confirmed 07/07/17] Multivitamins/Minerals TAB* [Theragran/minerals TAB*] 1 tab PO DAILY 07/07/17 [ History Confirmed 07/07/17] Omeprazole CAP* [Prilosec CAP* 20 MG] 40 mg PO DAILY 07/07/17 [History Confirmed 07/07/17] Potassium Chloride [Klor-Con Sprinkle] 40 meq PO DAILY 07/07/17 [History Confirmed 07/07/17] Sertraline* [Zoloft*] 25 mg PO DAILY 07/07/17 [History Confirmed 07/07/17] Thiamine TAB* [Vitamin B-1 TAB*] 100 mg PO DAILY 07/07/17 [History Confirmed ] Vitamin B Complex CAP* [B Complex CAP*] 1 cap PO DAILY 07/07/17 [History Confirmed 07/07/17] amLODIPine TAB* [Norvasc 5 mg TAB*] 5 mg PO DAILY 07/07/17 [History Confirmed ] Review of Systems - Measurements Intake and Output: Intake and Output Last 24 Hours 07/06/17 07/07/17 07/08/17 07/09/17 06:59 06:59 06:59 06:59 Intake Total 870 200 Output Total 1700 200 Balance -830 0 Weight 116 lb 9.992 oz Intake: Oral 870 200 Output: Urine 1700 200 - Review of Systems Constitutional Symptoms: Positive: Weight Loss, Weakness, Fatigue Dermatology: Negative: Rash, Skin Lesions HEENT: Negative: Change in Hearing, Vertigo, Tinnitus Eyes: Negative: Change in Vision, Double Vision Thyroid: Positive: Weight Loss Negative: Cold Intolerance, Heat Intolerance, Tremor, Frequent Defecation, Constipation, Primary Hypothyroidism, Primary Hyperthyroidism, Weight Gain Pulmonary: Positive: Sputum, Wheezing, Respiratory Distress, Shortness of Breath , COPD, Exercise Intolerance Negative: Hemoptysis, Asthma, Home Oxygen Cardiology: Positive: Shortness of Breath Negative: Chest Pain, Palpitations, Swelling of Ankles, Peripheral Vascular Dis, Edema, Faintness, Syncope, Claudication Gastroenterology: Positive: Heartburn Negative: Abdominal Pain, Indigestion, Constipation, Diarrhea, Haematemesis, Melena Genital - Urinary: Negative: Dysuria, Hematuria, Polyuria Musculoskeletal: Negative: Joint Pain, Joint Stiffness, Arthritis Endocrinology: Negative: Obesity, Diabetes, Hyperglycemia, Hypoglycemia, Polydipsia, Polyuria Hematologic/Lymphatic: Negative: Hx Leukemia, Hx Lymphoma, Use of Anticoagulant, Use of Antiplatelet Drugs Neurology: Negative: Headaches, Migraines, Change in Balancing, Change in Coordination, Change in Sphincter Function, Hx Seizures Psychiatry: Positive: Weight Change Negative: Guilt Feelings, Tearfulness Allergic/Immunologic: Negative: Hx HIV, Immunocompromise Review of Systems Statement: All other review of systems negative, unless stated above. Objective Vital Signs: Temp Pulse Resp BP Pulse Ox 99.1 F 92 27 133/85 94 07/08/17 07:25 07/08/17 10:00 07/08/17 10:00 07/08/17 10:00 07/08/17 10:00 Oxygen Devices in Use Now: CPAP/BiPAP Appearance: frail, pleasant Neck: Trachea Midline, - - + jvd Respiratory: Symmetrical Chest Expansion and Respiratory Effort - crackles with decreased breath sounds R>L Cardiovascular: No Edema, - - RRR, harsh 3/6 systolic murmur at the apex Abdominal: NL Sounds; No Tenderness; No Distention Extremities: No Edema Neurological: - - awake and alert with some evidence of memory loss Laboratory Results: 07/07/17 16:38 07/08/17 05:18 INR (Anticoag Therapy) 0.94 (0.89-1.11) 07/07/17 16:38 APTT 29.9 seconds (26.0-36.3) 07/07/17 16:38 Total Bilirubin 0.40 mg/dL (0.2-1.0) 07/07/17 16:38 AST 14 U/L (13-39) 07/07/17 16:38 ALT 7 U/L (7-52) 07/07/17 16:38 Alkaline Phosphatase 56 U/L (34-104) 08/30/17 16:38 B-Natriuretic Peptide 2982 pg/mL (-100) H 07/07/17 16:38 Total Protein 7.0 g/dL (6.4-8.9) 07/07/17 16:38 Albumin 3.4 g/dL (3.2-5.2) 07/07/17 16:38 Globulin 3.6 g/dL (2-4) 07/07/17 16:38 Albumin/Globulin Ratio 0.9 (1-3) L 07/07/17 16:38 07/07/17 07/07/17 16:38 20:36 Troponin I 0.42 H* 0.41 H* Diagnostic Imaging: CTA chest 07/07/2017: No PE, moderate bilateral pleural effusions PET scan 05/20/2017: hypermetabolic mid to distal esophagus and gastric cardia CT C/A/P 05/10/2017: Emphysema, thickening of distal esophagus and cardia consistent with esophageal carcinoma, no evidence of metastatic disease. EGD Dr. Dong on 04/28/17. Esophageal mass highly consistent with a carcinoma of the esophagus. This tumor was approximately 6 cm in vertical span and with a long circumferential mass seen in the mid to distal esophagus. Scope was gently passed through this and no abnormalities were noted in the stomach or in the first portion of the duodenum. Biopsy was performed and revealed invasive squamous cell carcinoma, well to moderately differentiated. TTE 07/08/2017: LVEF 50% with possible inferolateral hypokinesis, severe MR appears ischemic from posterior leaflet restriction, mild , moderate AI, mild TR with moderate pHTN and pleural effuson EKG Data: ekg admission: sinus tachycardia, non-specific st/t changes, lvh Assessment/Plan Mr. Tellez is a 67 year old man with esophageal cancer undergoing active treatment, ongoing tobacco and alcohol abuse presents with CHF due to severe MR , potential mechanism as above would assume related to underlying CAD - Start aspirin and atorvastatin 20 mg po daily, check lipid panel - Continue metoprolol 25 mg PO BID, hold off on uptitrating beta-lin for time being - Continue aldactone 50 mg PO daily - Will check afternoon BMP and start regular dosed loop diuretics and AceI for afterload reduction pending results - Keep Mg 2 or greater and K 4 or greater - I do not think he could withstand open heart surgery in his current condition. - Discussed with Dr. Fernandes, will discuss with his regular Oncologist Dr. Chanel Thank you for allowing me to participate in the cardiovascular care of this patient. Please do not hesitate to contact me with questions or concerns.
[2017-07-08 15:39] LABS: BUN/Creatinine Ratio 24.5 (8-20); Calcium 8.3 mg/dL (8.6-10.3); EGFR African American 199.4 (>60); EGFR Non-African American 155.1 (>60); Potassium 3.8 mmol/L (3.5-5.0)
[2017-07-08] MEDS ORDERED: Potassium Chlor TAB* 20 MEQ TAB.ER PO ONE (15:41)
[2017-07-08] MEDS ORDERED: Furosemide IV* 10 MG/ML 2 ML VIAL (20 MG) IV ONE (15:42)
[2017-07-08] MEDS: Furosemide IV* 10 MG/ML 2 ML VIAL (20 MG) IV SCH (16:26)
--- NOTE | 2017-07-08 16:43 | PN ---
Cardiology Progress Note attn coders please do not bill for this encounter repeat K 3.8 Will give IV lasix 20 mg with 40 meq K now Start lisinopril 2.5 mg po daily, hold for sbp < 90
[2017-07-08] MEDS ORDERED: Potassium Chloride LIQUID* 20 MEQ PACKET PO ONE (17:00)
[2017-07-08] MEDS: Lisinopril TAB* 5 MG PO SCH (18:27)
[2017-07-08] MEDS: Atorvastatin* 20 MG TAB PO SCH (21:55)
[2017-07-09] MEDS: Heparin VIAL(*) 5000 UNITS/ML VIAL (FIVE THOUSAND) SUBCUT SCH ×3 (05:30→21:17)
[2017-07-09 05:41] LABS: Hematocrit 22 % (42-52); Hemoglobin 7.6 g/dl (14.0-18.0); Mean Corpuscular HGB Conc 34 g/dl (31-36); Mean Corpuscular Hemoglobin 33 pg (27-31); Mean Corpuscular Volume 98 fL (80-94); Mean Platelet Volume 8 um3 (7.4-10.4); Red Blood Count 2.27 10^6/ul (4.0-5.4); Red Cell Distribution Width 16 % (10.5-15)
[2017-07-09 05:46] LABS: Add Diff/Slide Review? Slide Review Added; Comments Flag Yes; White Blood Count 3.1 10^3/ul (3.5-10.8)
[2017-07-09 05:53] LABS: Albumin 2.8 g/dL (3.2-5.2); BUN/Creatinine Ratio 32.6 (8-20); Calcium 8.3 mg/dL (8.6-10.3); EGFR African American 234.8 (>60); EGFR Non-African American 182.6 (>60); Globulin 3.1 g/dL (2-4); HDL Cholesterol 32.8 mg/dL; Potassium 3.8 mmol/L (3.5-5.0); Total Bilirubin 0.6 mg/dL (0.2-1.0); Total Protein 5.9 g/dL (6.4-8.9)
[2017-07-09] MEDS: Omeprazole CAP* 20 MG PO SCH (09:01)
[2017-07-09] MEDS: Spironolactone TAB* 25 MG PO SCH (09:01)
[2017-07-09] MEDS: Lisinopril TAB* 5 MG PO SCH (09:01)
[2017-07-09] MEDS: Magnesium Oxide TAB* 400 MG PO SCH ×3 (09:01→21:17)
[2017-07-09] MEDS: Aspirin EC Low Dose* 81 MG TAB.EC PO SCH (09:02)
[2017-07-09] MEDS: Metoprolol Tartrate TAB* 25 MG PO SCH (09:02)
[2017-07-09] MEDS: Multivitamins/Minerals TAB PO SCH (09:02)
[2017-07-09] MEDS: Folic Acid TAB* 1 MG PO SCH (09:02)
[2017-07-09] MEDS: Thiamine TAB* 100 MG TAB PO SCH (09:07)
[2017-07-09] MEDS: Sertraline* 25 MG TAB PO SCH (09:07)
[2017-07-09] MEDS: Furosemide IV* 10 MG/ML 2 ML VIAL (20 MG) IV SCH (09:17)
[2017-07-09 11:01] LABS: Hematocrit 23 % (42-52); Hemoglobin 8.2 g/dl (14.0-18.0); Mean Corpuscular HGB Conc 35 g/dl (31-36); Mean Corpuscular Hemoglobin 34 pg (27-31); Mean Corpuscular Volume 97 fL (80-94); Mean Platelet Volume 8 um3 (7.4-10.4); Red Cell Distribution Width 16 % (10.5-15); White Blood Count 3.3 10^3/ul (3.5-10.8)
[2017-07-09 11:02] LABS: Comments Flag Yes
[2017-07-09 11:27] LABS: Albumin 3.1 g/dL (3.2-5.2); BUN/Creatinine Ratio 28.6 (8-20); Calcium 8.8 mg/dL (8.6-10.3); EGFR African American 187.2 (>60); EGFR Non-African American 145.5 (>60); Globulin 3.4 g/dL (2-4); Magnesium 1.9 mg/dL (1.9-2.7); Potassium 3.9 mmol/L (3.5-5.0); Total Bilirubin 0.7 mg/dL (0.2-1.0); Total Protein 6.5 g/dL (6.4-8.9)
--- NOTE | 2017-07-09 12:24 | PN ---
Subjective Date of Service: 07/09/17 Interval History: f/u CHF, severe MR patient breathing much better, does not remember urinating a lot laying flat comfortable on nasal canula no current chest pain (had pain last night relieved with maalox) tele: No arrhythmias Medications Active Medications: Acetaminophen (Tylenol Tab*) 650 mg PO Q4H PRN PRN Reason: PAIN Al Hydrox/Mg Hydrox/Simethicone (Maalox Plus*) 30 ml PO Q4H PRN PRN Reason: INDIGESTION Last Admin: 07/08/17 17:39 Dose: 30 ml Aspirin (Aspirin Ec Low Dose*) 81 mg PO DAILY [facility] Last Admin: 07/09/17 09:02 Dose: 81 mg Atorvastatin Calcium (Lipitor*) 20 mg PO 2100 [facility] Last Admin: 07/08/17 21:55 Dose: 20 mg Folic Acid (Folvite Tab*) 1 mg PO DAILY [facility] Last Admin: 07/09/17 09:02 Dose: 1 mg Furosemide (Lasix Iv*) 20 mg IV DAILY [facility] Last Admin: 07/09/17 09:17 Dose: 20 mg Furosemide (Lasix Iv*) 20 mg IV ONCE ONE Stop: 07/09/17 15:31 Heparin Sodium (Porcine) (Heparin Vial(*)) 5,000 units SUBCUT Q8HR [facility] Last Admin: 07/09/17 05:30 Dose: 5,000 units Heparin Sodium (Porcine) (Heparin Flush Port (Ivad)) 5 ml FLUSH DAILY [facility] PRN Reason: Protocol Last Admin: 07/09/17 10:38 Dose: 5 ml Lisinopril (Prinivil Tab*) 2.5 mg PO DAILY [facility] Last Admin: 07/09/17 09:01 Dose: 2.5 mg Lorazepam (Ativan Tab(*)) 0 - 6 mg PO .PER [facility] PROTOCOL [facility] PRN Reason: Protocol Magnesium Oxide (Magox 400 Tab*) 800 mg PO TID [facility] Last Admin: 07/09/17 09:01 Dose: 800 mg Metoprolol Tartrate (Lopressor Tab*) 50 mg PO Q12HR [facility] Multivitamins/Minerals (Theragran/Minerals Tab*) 1 tab PO DAILY [facility] Last Admin: 07/09/17 09:02 Dose: 1 tab Omeprazole (Prilosec Cap*) 40 mg PO DAILY [facility] Last Admin: 07/09/17 09:01 Dose: 40 mg Sertraline HCl (Zoloft*) 25 mg PO DAILY [facility] Last Admin: 07/09/17 09:07 Dose: 25 mg Spironolactone (Aldactone Tab*) 50 mg PO DAILY [facility] Last Admin: 07/09/17 09:01 Dose: 50 mg Thiamine HCl (Vitamin B-1 Tab*) 100 mg PO DAILY [facility] Last Admin: 07/09/17 09:07 Dose: 100 mg Objective Vital Signs: Temp Pulse Resp BP Pulse Ox 97.8 F 82 18 124/63 89 07/09/17 07:20 07/09/17 11:20 07/09/17 11:20 07/09/17 11:20 07/09/17 11:20 Oxygen Devices in Use Now: CPAP/BiPAP Appearance: frail, pleasant Neck: Trachea Midline, - - + jvd Respiratory: Symmetrical Chest Expansion and Respiratory Effort - crackles with decreased breath sounds R>L, - - decreased breath sounds bases Cardiovascular: No Edema, - - RRR, harsh 4/6 systolic murmur at the apex Abdominal: NL Sounds; No Tenderness; No Distention Extremities: No Edema Neurological: - - awake and alert with some evidence of memory loss Laboratory Results: 07/09/17 10:44 07/09/17 10:44 INR (Anticoag Therapy) 0.94 (0.89-1.11) 07/07/17 16:38 APTT 29.9 seconds (26.0-36.3) 07/07/17 16:38 Total Bilirubin 0.70 mg/dL (0.2-1.0) 07/09/17 10:44 AST 16 U/L (13-39) 07/09/17 10:44 ALT 6 U/L (7-52) L 07/09/17 10:44 Alkaline Phosphatase 45 U/L (34-104) 07/09/17 10:44 B-Natriuretic Peptide 2982 pg/mL (-100) H 07/07/17 16:38 Total Protein 6.5 g/dL (6.4-8.9) 07/09/17 10:44 Albumin 3.1 g/dL (3.2-5.2) L 07/09/17 10:44 Globulin 3.4 g/dL (2-4) 07/09/17 10:44 Albumin/Globulin Ratio 0.9 (1-3) L 07/09/17 10:44 Triglycerides 71 mg/dL 07/09/17 05:25 Cholesterol 132 mg/dL 07/09/17 05:25 LDL Cholesterol 85 mg/dL 07/09/17 05:25 HDL Cholesterol 32.8 mg/dL 07/09/17 05:25 07/07/17 07/08/17 20:36 17:30 Troponin I 0.41 H* 0.18 H* Diagnostic Imaging: CTA chest 07/07/2017: No PE, moderate bilateral pleural effusions PET scan 05/20/2017: hypermetabolic mid to distal esophagus and gastric cardia CT C/A/P 05/10/2017: Emphysema, thickening of distal esophagus and cardia consistent with esophageal carcinoma, no evidence of metastatic disease. EGD Dr. Dong on 04/28/17. Esophageal mass highly consistent with a carcinoma of the esophagus. This tumor was approximately 6 cm in vertical span and with a long circumferential mass seen in the mid to distal esophagus. Scope was gently passed through this and no abnormalities were noted in the stomach or in the first portion of the duodenum. Biopsy was performed and revealed invasive squamous cell carcinoma, well to moderately differentiated. TTE 07/08/2017: LVEF 50% with possible inferolateral hypokinesis, severe MR appears ischemic from posterior leaflet restriction, mild , moderate AI, mild TR with moderate pHTN and pleural effuson EKG Data: ekg admission: sinus tachycardia, non-specific st/t changes, lvh ekg 06/08/2017: NSR, LVH, run of atrial tachycardia ekg 07/09/2017: NSR, LVH Assessment/Plan Mr. Tellez is a 67 year old man with esophageal cancer undergoing active treatment, ongoing tobacco and alcohol abuse presents with CHF due to severe MR likely ischemic related. - Continue aspirin and atorvastatin 20 mg po daily, - Continue metoprolol, increase to 50 mg PO BID (ordered) - Continue lisinopril 2.5 mg PO daily for afterload reduction - Continue aldactone 50 mg PO daily, can decrease to 25 mg if needed - Continue IV lasix 20 mg PO daily, would recommend to recheck CXR and BNP to see how much more diuresis need, would convert to oral lasix prior to discharge - Plan to give pRBC today with lasix to improve cardiac status - Discussed with patients Oncologist Dr. Chanel, patient is improving with medical therapy. Given serious cancer co-morbidity will pursue medical management of his cardiovascular disease Thank you for allowing me to participate in the cardiovascular care of this patient. Please do not hesitate to contact me with questions or concerns.
[2017-07-09] MEDS ORDERED: Furosemide IV* 10 MG/ML 2 ML VIAL (20 MG) IV ONE (15:30)
[2017-07-09 16:55] LABS: Hematocrit 25 % (42-52); Hemoglobin 8.8 g/dl (14.0-18.0); Mean Corpuscular HGB Conc 35 g/dl (31-36); Mean Corpuscular Hemoglobin 34 pg (27-31); Mean Corpuscular Volume 95 fL (80-94); Mean Platelet Volume 8 um3 (7.4-10.4); Red Blood Count 2.62 10^6/ul (4.0-5.4); Red Cell Distribution Width 16 % (10.5-15)
[2017-07-09 16:56] LABS: Comments Flag Yes
[2017-07-09 18:11] LABS: Rapid HIV INT CONT QC Line Present
[2017-07-09 18:12] LABS: Rapid HIV Kit Lot# H080009
[2017-07-09] MEDS: Atorvastatin* 20 MG TAB PO SCH (21:17)
[2017-07-09] MEDS: Metoprolol Tartrate TAB* 50 mg PO SCH (21:17)
[2017-07-10] MEDS: Heparin VIAL(*) 5000 UNITS/ML VIAL (FIVE THOUSAND) SUBCUT SCH ×3 (05:35→21:20)
[2017-07-10] MEDS: Sertraline* 25 MG TAB PO SCH (08:31)
[2017-07-10] MEDS: Spironolactone TAB* 25 MG PO SCH (08:31)
[2017-07-10] MEDS: Metoprolol Tartrate TAB* 50 mg PO SCH ×2 (08:31→21:22)
[2017-07-10] MEDS: Multivitamins/Minerals TAB PO SCH (08:31)
[2017-07-10] MEDS: Omeprazole CAP* 20 MG PO SCH (08:31)
[2017-07-10] MEDS: Magnesium Oxide TAB* 400 MG PO SCH ×3 (08:31→21:20)
[2017-07-10] MEDS: Folic Acid TAB* 1 MG PO SCH (08:31)
[2017-07-10] MEDS: Furosemide IV* 10 MG/ML 2 ML VIAL (20 MG) IV SCH (08:32)
[2017-07-10] MEDS: Lisinopril TAB* 5 MG PO SCH (08:32)
[2017-07-10] MEDS: Aspirin EC Low Dose* 81 MG TAB.EC PO SCH (08:32)
[2017-07-10] MEDS: Thiamine TAB* 100 MG TAB PO SCH (08:33)
--- NOTE | 2017-07-10 09:05 | PN ---
Progress Note - Progress Note Date of Service: 07/10/17 SOAP: Subjective: overall feeling better. breathing comfortably. resigned to the idea of going to a [facility]. Objective: Vital Signs Temp Pulse Resp BP Pulse Ox 98.4 F 83 20 133/54 94 07/10/17 04:07 07/10/17 04:07 07/10/17 04:07 07/10/17 04:07 07/10/17 08:36 lying flat in nad perr eomi op dry dec bs bases bilaterally s1 s2 II/ ankit soft nt +bs no le edema a+O x 3, nonfocal neurological exam Laboratory Results - last 24 hr 07/09/17 07/09/17 07/09/17 05:25 10:44 10:44 WBC 3.3 L RBC 2.40 L Hgb 8.2 L Hct 23 L MCV 97 H MCH 34 H MCHC 35 RDW 16 H Plt Count 83 L MPV 8 Neut % (Auto) 80.6 Lymph % (Auto) 12.1 L Reynolds % (Auto) 3.9 Eos % (Auto) 2.5 Baso % (Auto) 0.9 Absolute Neuts (auto) 2.7 Absolute Lymphs (auto) 0.4 L Absolute Monos (auto) 0.1 Absolute Eos (auto) 0.1 Absolute Basos (auto) 0 Absolute Nucleated RBC 0 Nucleated RBC % 0.1 Sodium 134 Potassium 3.9 Chloride 101 Carbon Dioxide 28 Anion Gap 5 BUN 16 Creatinine 0.56 L Est GFR ( Amer) 187.2 Est GFR (Non-Af Amer) 145.5 BUN/Creatinine Ratio 28.6 H Glucose 110 H Calcium 8.8 Magnesium 1.9 Total Bilirubin 0.70 AST 16 ALT 6 L Alkaline Phosphatase 45 Total Protein 6.5 Albumin 3.1 L Globulin 3.4 Albumin/Globulin Ratio 0.9 L HIV 1&2 Antibody Rapid Blood Type O Positive Antibody Screen Negative Crossmatch See Detail 07/09/17 07/09/17 16:42 16:42 WBC 3.0 L RBC 2.62 L Hgb 8.8 L Hct 25 L MCV 95 H MCH 34 H MCHC 35 RDW 16 H Plt Count 76 L MPV 8 Neut % (Auto) Lymph % (Auto) Reynolds % (Auto) Eos % (Auto) Baso % (Auto) Absolute Neuts (auto) Absolute Lymphs (auto) Absolute Monos (auto) Absolute Eos (auto) Absolute Basos (auto) Absolute Nucleated RBC Nucleated RBC % Sodium Potassium Chloride Carbon Dioxide Anion Gap BUN Creatinine Est GFR ( Amer) Est GFR (Non-Af Amer) BUN/Creatinine Ratio Glucose Calcium Magnesium Total Bilirubin AST ALT Alkaline Phosphatase Total Protein Albumin Globulin Albumin/Globulin Ratio HIV 1&2 Antibody Rapid Nonreactive Blood Type Antibody Screen Crossmatch Acetaminophen (Tylenol Tab*) 650 mg PO Q4H PRN PRN Reason: PAIN Al Hydrox/Mg Hydrox/Simethicone (Maalox Plus*) 30 ml PO Q4H PRN PRN Reason: INDIGESTION Last Admin: 07/08/17 17:39 Dose: 30 ml Aspirin (Aspirin Ec Low Dose*) 81 mg PO DAILY [facility] Last Admin: 07/10/17 08:32 Dose: 81 mg Atorvastatin Calcium (Lipitor*) 20 mg PO 2100 [facility] Last Admin: 07/09/17 21:17 Dose: 20 mg Folic Acid (Folvite Tab*) 1 mg PO DAILY [facility] Last Admin: 07/10/17 08:31 Dose: 1 mg Furosemide (Lasix Iv*) 20 mg IV DAILY [facility] Last Admin: 07/10/17 08:32 Dose: 20 mg Heparin Sodium (Porcine) (Heparin Vial(*)) 5,000 units SUBCUT Q8HR [facility] Last Admin: 07/10/17 05:35 Dose: 5,000 units Heparin Sodium (Porcine) (Heparin Flush Port (Ivad)) 5 ml FLUSH DAILY [facility] PRN Reason: Protocol Last Admin: 07/10/17 08:32 Dose: 5 ml Lisinopril (Prinivil Tab*) 2.5 mg PO DAILY [facility] Last Admin: 07/10/17 08:32 Dose: 2.5 mg Lorazepam (Ativan Tab(*)) 0 - 6 mg PO .PER [facility] PROTOCOL [facility] PRN Reason: Protocol Magnesium Oxide (Magox 400 Tab*) 800 mg PO TID [facility] Last Admin: 07/10/17 08:31 Dose: 800 mg Metoprolol Tartrate (Lopressor Tab*) 50 mg PO Q12HR [facility] Last Admin: 07/10/17 08:31 Dose: 50 mg Multivitamins/Minerals (Theragran/Minerals Tab*) 1 tab PO DAILY [facility] Last Admin: 07/10/17 08:31 Dose: 1 tab Omeprazole (Prilosec Cap*) 40 mg PO DAILY [facility] Last Admin: 07/10/17 08:31 Dose: 40 mg Sertraline HCl (Zoloft*) 25 mg PO DAILY [facility] Last Admin: 07/10/17 08:31 Dose: 25 mg Spironolactone (Aldactone Tab*) 50 mg PO DAILY [facility] Last Admin: 07/10/17 08:31 Dose: 50 mg Thiamine HCl (Vitamin B-1 Tab*) 100 mg PO DAILY [facility] Last Admin: 07/10/17 08:33 Dose: 100 mg Assessment: 67 yo M w locally advanced esophageal CA on curative intent chemoRT (chemo finished, 3 more doses of RT), admitted with florid heart failure and found to have new severe MR suggestive of recent NE. Given his multiple medical comorbidities, including active cancer, he is not an appropriate surgical candidate. I discussed this with Octavio and his sister Jewels at length (~30 mins), and discussed the rationale for [facility] and ETOH cessation. Plan: -cont medical management of heart failure (meagan-i, bblocker, statin, asa) -check BNP, CXR and lytes today -cont IV lasix today, PO spironolactone pancytopenia: chemotherapy induced, transfuse for Hb <8 with lasix support full code
[2017-07-10 09:40] LABS: BUN/Creatinine Ratio 30.8 (8-20); Calcium 8.8 mg/dL (8.6-10.3); EGFR African American 157.6 (>60); EGFR Non-African American 122.5 (>60); Magnesium 1.7 mg/dL (1.9-2.7); Potassium 3.4 mmol/L (3.5-5.0)
[2017-07-10] MEDS ORDERED: Magnesium Sulf 4 GM/100 ML IV* 4,000 MG/100 ML BAG IVPB ONE (10:30)
--- NOTE | 2017-07-10 10:36 | RAD ---
INDICATION: Congestive heart failure, follow-up. COMPARISON: Comparison is made with prior chest x-ray study from July 07, 2017. TECHNIQUE: Dual-energy PA and lateral views of the chest were obtained. FINDINGS: The heart appears mildly enlarged and unchanged from the prior study. There is a power port central venous catheter. The catheter tip projects over the right atrium. There is mild prominence of the interstitial markings and small to moderate size bilateral pleural effusions. The interstitial infiltrates appear improved from the prior study. IMPRESSION: FINDINGS MOST CONSISTENT WITH CONGESTIVE HEART FAILURE DEMONSTRATING SLIGHT IMPROVEMENT.
[2017-07-10] MEDS: Potassium Chlor TAB* 20 MEQ TAB.ER PO SCH (11:23)
[2017-07-10] MEDS: Atorvastatin* 20 MG TAB PO SCH (21:20)
[2017-07-11] MEDS: Heparin VIAL(*) 5000 UNITS/ML VIAL (FIVE THOUSAND) SUBCUT SCH ×3 (05:23→21:13)
[2017-07-11] MEDS ORDERED: Furosemide IV* 10 MG/ML 2 ML VIAL (20 MG) ONE (07:48)
--- NOTE | 2017-07-11 07:58 | PN ---
Progress Note - Progress Note Date of Service: 07/11/17 SOAP: Subjective: reports that he was up a good part of the night with diarrhea, which has since resolved. denies chest pain, just feels "like a wet noodle". has not been up ambulating the unit. no appetite. no nausea. Objective: Vital Signs Temp Pulse Resp BP Pulse Ox 97.8 F 78 20 112/61 95 07/11/17 03:28 07/11/17 03:28 07/11/17 03:28 07/11/17 03:28 07/11/17 03:28 lying on side in nad perr eomi op dry dec bs bases, distant hs soft nt +bs no le edema A+O x 3, grossly nonfocal Laboratory Results - last 24 hr 07/09/17 07/10/17 07/10/17 16:42 09:01 09:01 Sodium 135 Potassium 3.4 L Chloride 100 L Carbon Dioxide 28 Anion Gap 7 BUN 20 Creatinine 0.65 L Est GFR ( Amer) 157.6 Est GFR (Non-Af Amer) 122.5 BUN/Creatinine Ratio 30.8 H Glucose 113 H Calcium 8.8 Magnesium 1.7 L B-Natriuretic Peptide 3347 H Hepatitis C Antibody Nonreactive 07/11/17 05:15 Sodium Potassium Chloride Carbon Dioxide Anion Gap BUN Creatinine Est GFR ( Amer) Est GFR (Non-Af Amer) BUN/Creatinine Ratio Glucose Calcium Magnesium B-Natriuretic Peptide 2418 H Hepatitis C Antibody Acetaminophen (Tylenol Tab*) 650 mg PO Q4H PRN PRN Reason: PAIN Al Hydrox/Mg Hydrox/Simethicone (Maalox Plus*) 30 ml PO Q4H PRN PRN Reason: INDIGESTION Last Admin: 07/08/17 17:39 Dose: 30 ml Aspirin (Aspirin Ec Low Dose*) 81 mg PO DAILY [facility] Last Admin: 07/10/17 08:32 Dose: 81 mg Atorvastatin Calcium (Lipitor*) 20 mg PO 2100 [facility] Last Admin: 07/10/17 21:20 Dose: 20 mg Folic Acid (Folvite Tab*) 1 mg PO DAILY [facility] Last Admin: 07/10/17 08:31 Dose: 1 mg Furosemide (Lasix Iv*) 20 mg IV BID [facility] Heparin Sodium (Porcine) (Heparin Vial(*)) 5,000 units SUBCUT Q8HR [facility] Last Admin: 07/11/17 05:23 Dose: 5,000 units Heparin Sodium (Porcine) (Heparin Flush Port (Ivad)) 5 ml FLUSH DAILY [facility] PRN Reason: Protocol Last Admin: 07/11/17 05:27 Dose: 5 ml Lisinopril (Prinivil Tab*) 2.5 mg PO DAILY [facility] Last Admin: 07/10/17 08:32 Dose: 2.5 mg Lorazepam (Ativan Tab(*)) 0 - 6 mg PO .PER [facility] PROTOCOL [facility] PRN Reason: Protocol Magnesium Oxide (Magox 400 Tab*) 800 mg PO TID [facility] Last Admin: 07/10/17 21:20 Dose: 800 mg Metoprolol Tartrate (Lopressor Tab*) 50 mg PO Q12HR [facility] Last Admin: 07/10/17 21:22 Dose: 50 mg Multivitamins/Minerals (Theragran/Minerals Tab*) 1 tab PO DAILY [facility] Last Admin: 07/10/17 08:31 Dose: 1 tab Omeprazole (Prilosec Cap*) 40 mg PO DAILY [facility] Last Admin: 07/10/17 08:31 Dose: 40 mg Potassium Chloride (Klor Con Er Tab*) 40 meq PO DAILY [facility] Last Admin: 07/10/17 11:23 Dose: 40 meq Sertraline HCl (Zoloft*) 25 mg PO DAILY [facility] Last Admin: 07/10/17 08:31 Dose: 25 mg Spironolactone (Aldactone Tab*) 50 mg PO DAILY [facility] Last Admin: 07/10/17 08:31 Dose: 50 mg Thiamine HCl (Vitamin B-1 Tab*) 100 mg PO DAILY [facility] Last Admin: 07/10/17 08:33 Dose: 100 mg Assessment: 67 yo M w locally advanced esophageal CA on curative intent chemoRT (chemo finished, 3 more doses of RT), admitted with florid heart failure and found to have new severe MR suggestive of recent [place]. Given his multiple medical comorbidities, including active cancer, he is not an appropriate surgical candidate. Plan: -cont medical management of heart failure (meagan-i, bblocker, statin, asa) -check BNP and lytes daily -cont IV lasix - PO spironolactone -will need to watch potassium closely today with diarrhea and diuresis pancytopenia: chemotherapy induced, transfuse for Hb <8 with lasix support full code
[2017-07-11] MEDS: Omeprazole CAP* 20 MG PO SCH (08:00)
[2017-07-11] MEDS: Metoprolol Tartrate TAB* 50 mg PO SCH ×2 (08:00→20:52)
[2017-07-11] MEDS: Aspirin EC Low Dose* 81 MG TAB.EC PO SCH (08:01)
[2017-07-11] MEDS: Spironolactone TAB* 25 MG PO SCH (08:01)
[2017-07-11] MEDS: Folic Acid TAB* 1 MG PO SCH (08:02)
[2017-07-11] MEDS: Sertraline* 25 MG TAB PO SCH (08:02)
[2017-07-11] MEDS: Lisinopril TAB* 5 MG PO SCH (08:02)
[2017-07-11] MEDS: Potassium Chlor TAB* 20 MEQ TAB.ER PO SCH (08:02)
[2017-07-11] MEDS: Magnesium Oxide TAB* 400 MG PO SCH ×3 (08:02→20:52)
[2017-07-11] MEDS: Multivitamins/Minerals TAB PO SCH (08:02)
[2017-07-11] MEDS: Furosemide IV* 10 MG/ML 2 ML VIAL (20 MG) IV SCH (08:03)
[2017-07-11] MEDS: Thiamine TAB* 100 MG TAB PO SCH (08:03)
[2017-07-11 08:42] LABS: BUN/Creatinine Ratio 28.4 (8-20); Calcium 8.6 mg/dL (8.6-10.3); EGFR African American 152.2 (>60); EGFR Non-African American 118.3 (>60); Magnesium 2.1 mg/dL (1.9-2.7); Potassium 3.5 mmol/L (3.5-5.0)
[2017-07-11] MEDS ORDERED: Furosemide IV* 10 MG/ML 2 ML VIAL (20 MG) IV SCH (09:00)
[2017-07-11] MEDS: Atorvastatin* 20 MG TAB PO SCH (20:52)
[2017-07-12] MEDS: Heparin VIAL(*) 5000 UNITS/ML VIAL (FIVE THOUSAND) SUBCUT SCH ×3 (06:05→20:57)
[2017-07-12 06:12] LABS: Hematocrit 26 % (42-52); Hemoglobin 9.1 g/dl (14.0-18.0); Mean Corpuscular HGB Conc 35 g/dl (31-36); Mean Corpuscular Hemoglobin 34 pg (27-31); Mean Corpuscular Volume 96 fL (80-94); Mean Platelet Volume 8 um3 (7.4-10.4); Red Blood Count 2.71 10^6/ul (4.0-5.4); Red Cell Distribution Width 15 % (10.5-15)
[2017-07-12 06:15] LABS: Comments Flag Yes; White Blood Count 2.1 10^3/ul (3.5-10.8)
[2017-07-12 06:25] LABS: BUN/Creatinine Ratio 26.6 (8-20); Calcium 8.6 mg/dL (8.6-10.3); EGFR African American 160.4 (>60); EGFR Non-African American 124.7 (>60); Magnesium 1.6 mg/dL (1.9-2.7); Potassium 3.3 mmol/L (3.5-5.0)
[2017-07-12] MEDS ORDERED: Magnesium Sulf 4 GM/100 ML IV* 4,000 MG/100 ML BAG IVPB ONE (07:26)
[2017-07-12] MEDS ORDERED: Furosemide IV* 10 MG/ML 2 ML VIAL (20 MG) IV ONE (07:27)
--- NOTE | 2017-07-12 07:38 | PN ---
Progress Note - Progress Note Date of Service: 07/12/17 SOAP: Subjective: feels about the same as yesterday. a few beats of VT overnight, asymptomatic. breathing about the same. Objective: Vital Signs Temp Pulse Resp BP Pulse Ox 97.5 F 67 18 138/66 91 07/12/17 02:50 07/12/17 02:50 07/12/17 07:23 07/12/17 02:50 07/12/17 02:50 lying flat in nad perr eomi op dry dec and distant BS III/ ISAURO at apex soft nt +bs no le edema A+O x 3, nonfocal neuro exam skin: erythema left back port clean Laboratory Results - last 24 hr 07/11/17 07/12/17 07/12/17 08:00 06:00 06:00 WBC 2.1 L RBC 2.71 L Hgb 9.1 L Hct 26 L MCV 96 H MCH 34 H MCHC 35 RDW 15 Plt Count 74 L MPV 8 Neut % (Auto) 59.0 Lymph % (Auto) 25.3 [place] % (Auto) 9.8 H Eos % (Auto) 4.3 Baso % (Auto) 1.6 Absolute Neuts (auto) 1.2 L Absolute Lymphs (auto) 0.5 L Absolute Monos (auto) 0.2 Absolute Eos (auto) 0.1 Absolute Basos (auto) 0 Absolute Nucleated RBC 0.01 Nucleated RBC % 0.5 Sodium 133 135 Potassium 3.5 3.3 L Chloride 100 L 100 L Carbon Dioxide 30 29 Anion Gap 3 6 BUN 19 17 Creatinine 0.67 0.64 L Est GFR ( Amer) 152.2 160.4 Est GFR (Non-Af Amer) 118.3 124.7 BUN/Creatinine Ratio 28.4 H 26.6 H Glucose 115 H 105 H Calcium 8.6 8.6 Magnesium 2.1 1.6 L Acetaminophen (Tylenol Tab*) 650 mg PO Q4H PRN PRN Reason: PAIN Al Hydrox/Mg Hydrox/Simethicone (Maalox Plus*) 30 ml PO Q4H PRN PRN Reason: INDIGESTION Last Admin: 07/08/17 17:39 Dose: 30 ml Aspirin (Aspirin Ec Low Dose*) 81 mg PO DAILY [facility] Last Admin: 07/11/17 08:01 Dose: 81 mg Atorvastatin Calcium (Lipitor*) 20 mg PO 2100 [facility] Last Admin: 07/11/17 20:52 Dose: 20 mg Folic Acid (Folvite Tab*) 1 mg PO DAILY [facility] Last Admin: 07/11/17 08:02 Dose: 1 mg Furosemide (Lasix Iv*) 20 mg IV DAILY [facility] Last Admin: 07/11/17 08:03 Dose: 20 mg Furosemide (Lasix Iv*) 20 mg IV ONCE ONE Stop: 07/12/17 07:28 Heparin Sodium (Porcine) (Heparin Vial(*)) 5,000 units SUBCUT Q8HR [facility] Last Admin: 07/12/17 06:05 Dose: 5,000 units Heparin Sodium (Porcine) (Heparin Flush Port (Ivad)) 5 ml FLUSH DAILY [facility] PRN Reason: Protocol Last Admin: 07/11/17 07:55 Dose: 5 ml Magnesium Sulfate (Magnesium Sulf 4 Gm/100 Ml Iv*) 4,000 mg in 100 mls @ 33.333 mls/hr IVPB ONCE ONE Stop: 07/12/17 10:25 Potassium Chloride (Potassium Chloride 20 Meq/100 Ml Ivpremix*) 20 meq in 100 mls @ 50 mls/hr IV Q2H [facility] Stop: 07/12/17 13:59 Lisinopril (Prinivil Tab*) 2.5 mg PO DAILY [facility] Last Admin: 07/11/17 08:02 Dose: 2.5 mg Lorazepam (Ativan Tab(*)) 0 - 6 mg PO .PER [facility] PROTOCOL [facility] PRN Reason: Protocol Magnesium Oxide (Magox 400 Tab*) 800 mg PO TID [facility] Last Admin: 07/11/17 20:52 Dose: 800 mg Metoprolol Tartrate (Lopressor Tab*) 50 mg PO Q12HR [facility] Last Admin: 07/11/17 20:52 Dose: 50 mg Multivitamins/Minerals (Theragran/Minerals Tab*) 1 tab PO DAILY [facility] Last Admin: 07/11/17 08:02 Dose: 1 tab Omeprazole (Prilosec Cap*) 40 mg PO DAILY [facility] Last Admin: 07/11/17 08:00 Dose: 40 mg Potassium Chloride (Klor Con Er Tab*) 40 meq PO BID [facility] Sertraline HCl (Zoloft*) 25 mg PO DAILY [facility] Last Admin: 07/11/17 08:02 Dose: 25 mg Spironolactone (Aldactone Tab*) 50 mg PO DAILY [facility] Last Admin: 07/11/17 08:01 Dose: 50 mg Thiamine HCl (Vitamin B-1 Tab*) 100 mg PO DAILY [facility] Last Admin: 07/11/17 08:03 Dose: 100 mg Assessment: 67 yo M w locally advanced esophageal CA on curative intent chemoRT (chemo finished, 3 more doses of RT), admitted with florid heart failure and found to have new severe MR suggestive of recent [place]. Given his multiple medical comorbidities, including active cancer, he is not an appropriate surgical candidate. Plan: -cont medical management of heart failure (meagan-i, bblocker, statin, asa) -check BNP and lytes daily -cont IV lasix, will give extra dose today given 400 cc fluids from potassium and mag repletion - PO spironolactone pancytopenia: chemotherapy induced, transfuse for Hb <8 with lasix support stage I decub: encourage patient OOB-->chair more, ambulation heparin DVT prophylaxis full code
[2017-07-12] MEDS: KCL 20 MEQ/100 ML IVPREMIX* 20 MEQ/100 ML BAG IV SCH ×3 (08:00→13:22)
[2017-07-12] MEDS: Potassium Chlor TAB* 20 MEQ TAB.ER PO SCH ×2 (08:05→21:07)
[2017-07-12] MEDS: Omeprazole CAP* 20 MG PO SCH (08:05)
[2017-07-12] MEDS: Metoprolol Tartrate TAB* 50 mg PO SCH ×2 (08:06→20:57)
[2017-07-12] MEDS: Aspirin EC Low Dose* 81 MG TAB.EC PO SCH (08:06)
[2017-07-12] MEDS: Lisinopril TAB* 5 MG PO SCH (08:06)
[2017-07-12] MEDS: Sertraline* 25 MG TAB PO SCH (08:06)
[2017-07-12] MEDS: Magnesium Oxide TAB* 400 MG PO SCH ×3 (08:06→20:57)
[2017-07-12] MEDS: Spironolactone TAB* 25 MG PO SCH (08:07)
[2017-07-12] MEDS: Thiamine TAB* 100 MG TAB PO SCH (08:07)
[2017-07-12] MEDS: Folic Acid TAB* 1 MG PO SCH (08:07)
[2017-07-12] MEDS: Multivitamins/Minerals TAB PO SCH (08:07)
[2017-07-12] MEDS: Furosemide IV* 10 MG/ML 2 ML VIAL (20 MG) IV SCH (15:44)
[2017-07-12] MEDS: Atorvastatin* 20 MG TAB PO SCH (20:57)
[2017-07-13 04:28] LABS: Hematocrit 26 % (42-52); Hemoglobin 9.3 g/dl (14.0-18.0); Mean Corpuscular HGB Conc 35 g/dl (31-36); Mean Corpuscular Hemoglobin 34 pg (27-31); Mean Corpuscular Volume 97 fL (80-94); Mean Platelet Volume 9 um3 (7.4-10.4); Red Blood Count 2.72 10^6/ul (4.0-5.4); Red Cell Distribution Width 16 % (10.5-15)
[2017-07-13 04:29] LABS: Comments Flag Yes
[2017-07-13 04:30] LABS: White Blood Count 2.3 10^3/ul (3.5-10.8)
[2017-07-13 04:45] LABS: BUN/Creatinine Ratio 21.2 (8-20); Calcium 8.7 mg/dL (8.6-10.3); EGFR African American 154.8 (>60); EGFR Non-African American 120.4 (>60); Magnesium 1.8 mg/dL (1.9-2.7); Potassium 3.8 mmol/L (3.5-5.0)
[2017-07-13] MEDS: Heparin VIAL(*) 5000 UNITS/ML VIAL (FIVE THOUSAND) SUBCUT SCH ×3 (05:05→20:08)
[2017-07-13] MEDS: Omeprazole CAP* 20 MG PO SCH (08:37)
[2017-07-13] MEDS: Aspirin EC Low Dose* 81 MG TAB.EC PO SCH (08:37)
[2017-07-13] MEDS: Spironolactone TAB* 25 MG PO SCH (08:37)
[2017-07-13] MEDS: Folic Acid TAB* 1 MG PO SCH (08:37)
[2017-07-13] MEDS: Lisinopril TAB* 5 MG PO SCH (08:37)
[2017-07-13] MEDS: Sertraline* 25 MG TAB PO SCH (08:37)
[2017-07-13] MEDS: Thiamine TAB* 100 MG TAB PO SCH (08:38)
[2017-07-13] MEDS: Multivitamins/Minerals TAB PO SCH (08:38)
[2017-07-13] MEDS: Metoprolol Tartrate TAB* 50 mg PO SCH ×2 (08:38→20:01)
[2017-07-13] MEDS: Potassium Chlor TAB* 20 MEQ TAB.ER PO SCH ×2 (08:38→20:06)
[2017-07-13] MEDS: Magnesium Oxide TAB* 400 MG PO SCH ×3 (08:38→20:03)
[2017-07-13] MEDS: Furosemide IV* 10 MG/ML 2 ML VIAL (20 MG) IV SCH (08:38)
[2017-07-13] MEDS ORDERED: Ondansetron INJ* 2 MG/ML VIAL ONE (08:47)
--- NOTE | 2017-07-13 10:04 | PN ---
Progress Note - Progress Note Date of Service: 07/13/17 SOAP: Subjective: [Feeling much better ,making slow progress .Complains of minor chest pain with exertion. Walking in the hallways . Denies fever or chills . Bowels are good. Finishes XRT in 2 days .] Objective: [ Laboratory Results - last 24 hr 07/13/17 07/13/17 07/13/17 04:00 04:00 04:00 WBC 2.3 L RBC 2.72 L Hgb 9.3 L Hct 26 L MCV 97 H MCH 34 H MCHC 35 RDW 16 H Plt Count 78 L MPV 9 Neut % (Auto) 58.8 Lymph % (Auto) 24.6 L [place] % (Auto) 11.6 H Eos % (Auto) 3.7 Baso % (Auto) 1.3 Absolute Neuts (auto) 1.4 L Absolute Lymphs (auto) 0.6 L Absolute Monos (auto) 0.3 Absolute Eos (auto) 0.1 Absolute Basos (auto) 0 Absolute Nucleated RBC 0.01 Nucleated RBC % 0.4 Sodium 134 Potassium 3.8 Chloride 101 Carbon Dioxide 29 Anion Gap 4 BUN 14 Creatinine 0.66 L Est GFR ( Amer) 154.8 Est GFR (Non-Af Amer) 120.4 BUN/Creatinine Ratio 21.2 H Glucose 108 H Calcium 8.7 Magnesium 1.8 L B-Natriuretic Peptide 1623 H Acetaminophen (Tylenol Tab*) 650 mg PO Q4H PRN PRN Reason: PAIN Al Hydrox/Mg Hydrox/Simethicone (Maalox Plus*) 30 ml PO Q4H PRN PRN Reason: INDIGESTION Last Admin: 07/08/17 17:39 Dose: 30 ml Aspirin (Aspirin Ec Low Dose*) 81 mg PO DAILY [facility] Last Admin: 07/13/17 08:37 Dose: 81 mg Atorvastatin Calcium (Lipitor*) 20 mg PO 2100 [facility] Last Admin: 07/12/17 20:57 Dose: Not Given Folic Acid (Folvite Tab*) 1 mg PO DAILY [facility] Last Admin: 07/13/17 08:37 Dose: 1 mg Furosemide (Lasix Iv*) 20 mg IV DAILY [facility] Last Admin: 07/13/17 08:38 Dose: 20 mg Heparin Sodium (Porcine) (Heparin Vial(*)) 5,000 units SUBCUT Q8HR [facility] Last Admin: 07/13/17 05:05 Dose: 5,000 units Heparin Sodium (Porcine) (Heparin Flush Port (Ivad)) 5 ml FLUSH DAILY [facility] PRN Reason: Protocol Last Admin: 07/12/17 15:44 Dose: 5 ml Lisinopril (Prinivil Tab*) 2.5 mg PO DAILY [facility] Last Admin: 07/13/17 08:37 Dose: 2.5 mg Lorazepam (Ativan Tab(*)) 0 - 6 mg PO .PER [facility] PROTOCOL [facility] PRN Reason: Protocol Magnesium Oxide (Magox 400 Tab*) 800 mg PO TID [facility] Last Admin: 07/13/17 08:38 Dose: 800 mg Metoprolol Tartrate (Lopressor Tab*) 50 mg PO Q12HR [facility] Last Admin: 07/13/17 08:38 Dose: 50 mg Multivitamins/Minerals (Theragran/Minerals Tab*) 1 tab PO DAILY [facility] Last Admin: 07/13/17 08:38 Dose: Not Given Omeprazole (Prilosec Cap*) 40 mg PO DAILY [facility] Last Admin: 07/13/17 08:37 Dose: 40 mg Potassium Chloride (Klor Con Er Tab*) 40 meq PO BID [facility] Last Admin: 07/13/17 08:38 Dose: 40 meq Sertraline HCl (Zoloft*) 25 mg PO DAILY [facility] Last Admin: 07/13/17 08:37 Dose: 25 mg Spironolactone (Aldactone Tab*) 50 mg PO DAILY [facility] Last Admin: 07/13/17 08:37 Dose: 50 mg Thiamine HCl (Vitamin B-1 Tab*) 100 mg PO DAILY [facility] Last Admin: 07/13/17 08:38 Dose: 100 mg Vital Signs Temp Pulse Resp BP Pulse Ox 98.0 F 73 24 136/63 91 07/13/17 07:29 07/13/17 07:29 07/13/17 07:29 07/13/17 07:29 07/13/17 07:29 ] Assessment: [HEENT- no exudates Lungs -decreased at bases ,less crackles,no wheezes COR -RRR ABD- +bs ,soft ,not tender EXT -no edema ] Plan: [67 yo male with esophageal cancer a/w dyspnea /resp. failure now improved Acute NH followed by Dr. Wilkins currently not a candidate for agressive therapy at this time. Fluid overload -improved Deconditioning -will need SNF acute rehab planned for when he finishes XRT , then will need close follow up with Dr. Chanel and Dr. Wilkins. He is due for lat cycle chemotherapy which is on hold. Will folow closely.] <Sally Bowden - Last Filed: 07/13/17 10:04> - Progress Note SOAP: Subjective: [] Objective: [] Assessment: [] Plan: [] <Mj Chanel - Last Filed: 07/13/17 18:30>
[2017-07-13] MEDS ORDERED: Ondansetron INJ* 2 MG/ML VIAL IV PRN (13:56)
[2017-07-13] MEDS: Atorvastatin* 20 MG TAB PO SCH (20:03)
[2017-07-14] MEDS: Heparin VIAL(*) 5000 UNITS/ML VIAL (FIVE THOUSAND) SUBCUT SCH ×3 (05:15→22:32)
[2017-07-14] MEDS: Omeprazole CAP* 20 MG PO SCH ×2 (09:24→11:39)
[2017-07-14] MEDS: Magnesium Oxide TAB* 400 MG PO SCH ×2 (09:24→10:30)
[2017-07-14] MEDS: Potassium Chlor TAB* 20 MEQ TAB.ER PO SCH ×2 (09:24→10:30)
[2017-07-14] MEDS: Multivitamins/Minerals TAB PO SCH ×2 (09:24→11:40)
[2017-07-14] MEDS: Folic Acid TAB* 1 MG PO SCH ×2 (09:25→11:40)
[2017-07-14] MEDS: Metoprolol Tartrate TAB* 50 mg PO SCH ×3 (09:25→22:26)
[2017-07-14] MEDS: Furosemide IV* 10 MG/ML 2 ML VIAL (20 MG) IV SCH (09:25)
[2017-07-14] MEDS: Aspirin EC Low Dose* 81 MG TAB.EC PO SCH ×2 (09:25→11:40)
[2017-07-14] MEDS: Sertraline* 25 MG TAB PO SCH ×2 (09:25→11:40)
[2017-07-14] MEDS: Spironolactone TAB* 25 MG PO SCH ×2 (09:25→11:40)
[2017-07-14] MEDS: Lisinopril TAB* 5 MG PO SCH (09:26)
[2017-07-14] MEDS: Thiamine TAB* 100 MG TAB PO SCH ×2 (09:26→11:40)
[2017-07-14 12:01] LABS: Hematocrit 29 % (42-52); Hemoglobin 9.8 g/dl (14.0-18.0); Mean Corpuscular HGB Conc 34 g/dl (31-36); Mean Corpuscular Hemoglobin 33 pg (27-31); Mean Corpuscular Volume 98 fL (80-94); Mean Platelet Volume 9 um3 (7.4-10.4); Red Blood Count 2.92 10^6/ul (4.0-5.4); Red Cell Distribution Width 16 % (10.5-15)
[2017-07-14 12:03] LABS: Comments Flag Yes
[2017-07-14 12:04] LABS: White Blood Count 2.5 10^3/ul (3.5-10.8)
[2017-07-14 12:12] LABS: BUN/Creatinine Ratio 19.4 (8-20); Calcium 9.2 mg/dL (8.6-10.3); EGFR Non-African American 108.9 (>60); Globulin 3.8 g/dL (2-4); Total Bilirubin 0.4 mg/dL (0.2-1.0); Total Protein 6.8 g/dL (6.4-8.9)
[2017-07-14] MEDS ORDERED: Magnesium Sulfate 2 GM IV IVPB ONE (13:07)
[2017-07-14] MEDS: Magnesium CITRATE* 300 ML BTL PO SCH (15:18)
[2017-07-14] MEDS: Sucralfate TAB* 1 GM PO SCH ×3 (15:18→22:23)
[2017-07-14] MEDS: Atorvastatin* 20 MG TAB PO SCH (22:27)
[2017-07-15] MEDS: Heparin VIAL(*) 5000 UNITS/ML VIAL (FIVE THOUSAND) SUBCUT SCH ×3 (05:21→22:18)
[2017-07-15] MEDS: Sertraline* 25 MG TAB PO SCH (09:27)
[2017-07-15] MEDS: Sucralfate TAB* 1 GM PO SCH ×3 (09:27→22:11)
[2017-07-15] MEDS: Metoprolol Tartrate TAB* 50 mg PO SCH ×2 (09:27→22:13)
[2017-07-15] MEDS: Lisinopril TAB* 5 MG PO SCH (09:28)
[2017-07-15] MEDS: Potassium Chloride LIQUID* 20 MEQ PACKET PO SCH (09:28)
[2017-07-15] MEDS: Furosemide IV* 10 MG/ML 2 ML VIAL (20 MG) IV SCH (09:28)
[2017-07-15] MEDS: Spironolactone TAB* 25 MG PO SCH (09:28)
[2017-07-15] MEDS: Magnesium CITRATE* 300 ML BTL PO SCH ×3 (09:28→22:22)
[2017-07-15] MEDS: Omeprazole CAP* 20 MG PO SCH (09:42)
[2017-07-15] MEDS: Thiamine TAB* 100 MG TAB PO SCH (09:42)
[2017-07-15] MEDS: Folic Acid TAB* 1 MG PO SCH (09:42)
[2017-07-15] MEDS: Aspirin EC Low Dose* 81 MG TAB.EC PO SCH (09:42)
[2017-07-15] MEDS: Multivitamins/Minerals TAB PO SCH (09:42)
[2017-07-15] MEDS ORDERED: HYDROcodone/ACET. 7.5/325 LIQ* 15 ML UDC PO PRN (09:51)
[2017-07-15 11:53] LABS: Hematocrit 30 % (42-52); Hemoglobin 9.9 g/dl (14.0-18.0); Mean Corpuscular HGB Conc 34 g/dl (31-36); Mean Corpuscular Hemoglobin 33 pg (27-31); Mean Corpuscular Volume 98 fL (80-94); Mean Platelet Volume 8 um3 (7.4-10.4); Red Blood Count 3.01 10^6/ul (4.0-5.4); Red Cell Distribution Width 16 % (10.5-15)
[2017-07-15 11:55] LABS: Comments Flag Yes; White Blood Count 2.8 10^3/ul (3.5-10.8)
[2017-07-15 12:03] LABS: BUN/Creatinine Ratio 23.1 (8-20); Calcium 9.2 mg/dL (8.6-10.3); EGFR African American 157.6 (>60); EGFR Non-African American 122.5 (>60); Magnesium 1.7 mg/dL (1.9-2.7); Potassium 3.8 mmol/L (3.5-5.0)
[2017-07-15] MEDS: Atorvastatin* 20 MG TAB PO SCH (22:16)
[2017-07-16] MEDS: Heparin VIAL(*) 5000 UNITS/ML VIAL (FIVE THOUSAND) SUBCUT SCH (05:37)
[2017-07-16] MEDS: Folic Acid TAB* 1 MG PO SCH (09:18)
[2017-07-16] MEDS: Furosemide IV* 10 MG/ML 2 ML VIAL (20 MG) IV SCH (09:19)
[2017-07-16] MEDS: Lisinopril TAB* 5 MG PO SCH (09:20)
[2017-07-16] MEDS: Metoprolol Tartrate TAB* 50 mg PO SCH (09:21)
[2017-07-16] MEDS: Omeprazole CAP* 20 MG PO SCH (09:22)
[2017-07-16] MEDS: Multivitamins/Minerals TAB PO SCH (09:22)
[2017-07-16] MEDS: Potassium Chloride LIQUID* 20 MEQ PACKET PO SCH (09:22)
[2017-07-16] MEDS: Sertraline* 25 MG TAB PO SCH (09:22)
[2017-07-16] MEDS: Sucralfate TAB* 1 GM PO SCH (09:23)
[2017-07-16] MEDS: Spironolactone TAB* 25 MG PO SCH (09:23)
[2017-07-16] MEDS: Thiamine TAB* 100 MG TAB PO SCH (09:24)
[2017-07-16 09:25] VITALS: BP 135/64
--- NOTE | 2017-07-16 10:12 | DS ---
- Discharge Summary Admission Date: 07/07/2017 Discharge Date: 07/16/2017 Discharge Diagnosis: 1. Congestive Heart Failure: present on admission, secondary to acute CT, stable. 2. Acute CT: followed by cardiology, felt not to be a candidate for surgical intervention and therefore being managed medically. 3. Esophageal Cancer: completed 5 of planned 6 doses of chemotherapy with concurrent XRT (completed yesterday 07/15) and no further chemotherapy planned. Will f/u as outpatient with primary oncologist. 4. Severe Protein Caloric Malnutrition: multifactorial with cancer and alcoholism, will cont. protein shakes to improve caloric intake, complicated by radiation esophagitis and subsequent dysphagia. 5. Hypokalemia and Hypomagnesemia: secondary to chemotherapy, though partially related to malnutrition, cont. PO replacement. 6. GERD: cont. PPI and H2 antagonist. 7. HTN, Hyperlipidemia, CAD: cardiology management as per CT above Discharge Medications: 1. Aspirin 81 mg PO daily 2. Atorvastatin 20 mg PO qEvening 3. Lisinopril 2.5 mg PO daily 4. Magnesium Citrate 30 mL PO BID 5. Metoprolol 50 mg PO BID 6. Potassium Chloride 40 mEq PO daily 7. Furosemide 20 mg PO daily 8. Famotidine 20 mg PO BID PRN reflux 9. Vitamin B complex 1 tab PO daily 10. Amlodipine 5 mg PO daily 11. Sertraline 25 mg PO daily 12. Omeprazole 40 mg PO daily 13. Multivitamin 1 tab PO daily 14. Folic Acid 1 mg PO daily 15. Maalox 30 mL PO q4hrs PRN indigestion 16. Acetaminophen 650 mg PO q4hrs PRN pain or fever Hospital Course: Please see admission note for full H&P, however briefly Mr. Aviles is well known to our service due to his diagnosis of locally advanced esophageal cancer in April of this year with significant history for tobacco and alcohol use. He presented to the office on 07/07 for hydration and electrolyte replacement where he was found to have significant increase in SOB over the last 24 hrs and was sent for a CTA. In the radiology department he deconditioned and was transferred to the ER where he was ultimately admitted to the ICU for BiPAP. An echocardiogram on admission revealed an EF in the lower limits of normal @ 50 -55% with severe mitral valve regurgitation as compared to prior exam in March. His BNP on admission was 2982 pg/mL and a troponin was elevated @ 0.42 ng/mL. He had a markedly elevated lactic acid in the ER, however all cultures were negative and this was ultimately felt to be r/t acute insult and dehydration. On admission he received 80 mg IV push Lasix and the following day his serum potassium dropped to 2.7mmol/mL. Dr. Wilkins of cardiology saw the patient in consultation the day after admission (07/08) and he determined the CHF was likely secondary to and acute CT (as severe MR was new), however with underlying co-morbidities he was not felt to be a candidate for further work-up and/or surgical intervention for his severe valve disease. On the morning of the [facility] protocol was also initiated as he had withdrawal seizure in March of this year and had continued drinking throughout his tx. He received IV electrolyte replacement and was started on Aldactone, ASA, ACEI, and cont.d his Beta-lin. Over the next 2 days he improved and was eventually transferred to the telemetry unit on 07/09. Throughout his telemetry monitoring his has been consistently in NSR though with some ectopy and ST as well as a short episode of bigemony on 07/10 and a short run of SVT on 07/12. By 07/10 the patient and his sister determined the best step following recovering from the acute insult would be halfway with sub-acute rehab (no further chemotherapy planned) and over the next 5 days his radiation tx. was completed. Mr. Tellez has made slow but steady progressive with improved respiratory status, decreased BNP to 1623 pg/mL, and minimal intervention per [facility] protocol ( d/cd on 07/10). He was offered a bed at [facility] yesterday and accepted for transfer today. He will follow-up with oncology on 07/[address] Cage office for follow-up in approx. 1 week. Per cardiology goal of serum Mg >2 and K>4 therefore he will continue PO replacement and we will follow his labs closely as an outpatient, repeating them at his office visit. Plan of care was reviewed with Mr. Tellez who is in agreement and denies questions and concerns.
[2017-07-16] MEDS: Aspirin EC Low Dose* 81 MG TAB.EC PO SCH (10:36)
[2017-07-16] MEDS: Magnesium CITRATE* 300 ML BTL PO SCH ×2 (10:37→11:23)
== END 2017-07-16 11:36 | DRG 280 ==
LOC: ED 16:26 → ICU 18:04 → MEDTELE 07-08 15:43
PROVIDERS: ADMIT Internal Medicine; ATTEND Internal Medicine Hematology & Oncology
PROC: 5A09357 Assistance with Respiratory Ventilation, Less than 24 Consecutive Hours, Continuous Positive Airway Pressure (ICD-10-PCS; 2017-07-07)
PROC: DD001ZZ Beam Radiation of Esophagus using Photons 1 - 10 MeV (ICD-10-PCS; principal; 2017-07-08)
PROC: 30233N1 Transfusion of Nonautologous Red Blood Cells into Peripheral Vein, Percutaneous Approach (ICD-10-PCS; 2017-07-09)
DX: I11.0 Hypertensive heart disease with heart failure (principal); E43 Unspecified severe protein-calorie malnutrition; I21.3 ST elevation (STEMI) myocardial infarction of unspecified site; J96.90 Respiratory failure, unspecified, unspecified whether with hypoxia or hypercapnia; L89.141 Pressure ulcer of left lower back, stage 1; D61.810 Antineoplastic chemotherapy induced pancytopenia; C15.9 Malignant neoplasm of esophagus, unspecified; E86.0 Dehydration; J98.11 Atelectasis; I47.1 Supraventricular tachycardia; Z68.1 Body mass index [BMI] 19.9 or less, adult; F10.20 Alcohol dependence, uncomplicated; I50.9 Heart failure, unspecified; E83.42 Hypomagnesemia; R13.10 Dysphagia, unspecified; D64.9 Anemia, unspecified; F32.9 Major depressive disorder, single episode, unspecified; F17.210 Nicotine dependence, cigarettes, uncomplicated; K21.9 Gastro-esophageal reflux disease without esophagitis; I08.0 Rheumatic disorders of both mitral and aortic valves; T45.1X5A Adverse effect of antineoplastic and immunosuppressive drugs, initial encounter; G62.9 Polyneuropathy, unspecified; K20.8 Other esophagitis; Y63.3 Inadvertent exposure of patient to radiation during medical care; Y92.238 Other place in hospital as the place of occurrence of the external cause; E87.6 Hypokalemia; E78.5 Hyperlipidemia, unspecified; I25.10 Atherosclerotic heart disease of native coronary artery without angina pectoris; R00.8 Other abnormalities of heart beat; Z80.3 Family history of malignant neoplasm of breast; Z92.3 Personal history of irradiation; Z92.21 Personal history of antineoplastic chemotherapy; Z80.1 Family history of malignant neoplasm of trachea, bronchus and lung; Z80.49 Family history of malignant neoplasm of other genital organs; Z83.49 Family history of other endocrine, nutritional and metabolic diseases; Z79.82 Long term (current) use of aspirin
CPT/HCPCS: 0521F; 1125F; 36415; 36591; 71010; 71020; 71275; 77386; 80048; 80053; 80061; 82270; 83605; 83735; 83880; 84484; 85025; 85027; 85610; 85730; 86140; 86703; 86708; 86803; 86850; 86900; 86901; 86922; 87040; 87641; 93005; 93306; 94640; 94660; 94760; 96365; 96366; 96367; 96368; 96413; 96417; 99212; 99214; 99215; 99232; 99233; A9270-GY; G0463; G8427; J1100; J1200; J1642; J1644; J1940; J2405; J2469; J3475; J3480; J9045; J9267; P9040; Q9967

== ENCOUNTER 2017-08-16 03:57 | Emergency (ER) | payer MEDICARE ==
[2017-08-16] MEDS ORDERED: Aspirin Low Dose CHEW TAB* 81 MG PO ONE (04:19)
[2017-08-16] MEDS ORDERED: Ondansetron INJ* 2 MG/ML VIAL IV ONE (04:26)
[2017-08-16 05:44] LABS: Hematocrit 30 % (42-52); Hemoglobin 10.4 g/dl (14.0-18.0); Mean Corpuscular HGB Conc 34 g/dl (31-36); Mean Corpuscular Hemoglobin 35 pg (27-31); Mean Corpuscular Volume 101 fL (80-94); Mean Platelet Volume 7 um3 (7.4-10.4); Red Blood Count 3.01 10^6/ul (4.0-5.4); Red Cell Distribution Width 20 % (10.5-15); White Blood Count 9.2 10^3/ul (3.5-10.8)
[2017-08-16 05:58] LABS: Troponin I 0.03 ng/mL (<0.04)
[2017-08-16 05:59] LABS: Albumin 3.8 g/dL (3.2-5.2); BUN/Creatinine Ratio 27.3 (8-20); Calcium 9.8 mg/dL (8.6-10.3); EGFR African American 129.6 (>60); EGFR Non-African American 100.8 (>60); Globulin 3.9 g/dL (2-4); Potassium 3.4 mmol/L (3.5-5.0); Total Bilirubin 0.5 mg/dL (0.2-1.0); Total Protein 7.7 g/dL (6.4-8.9)
[2017-08-16] MEDS ORDERED: Tetan/Diph/Pertus SYR(Tdap)* 0.5 ML SYR(BOOSTRIX) use SYR IM ONE (06:03)
--- NOTE | 2017-08-16 06:10 | ED ---
Pilar Otero Rebecca, scribed for Randall Molina on 08/16/17 at 0418 . Head Injury - HPI Summary HPI Summary: Pt is a 67 y/o M BIBA who presents to ED with a forehead laceration s/p head injury. This morning the pt got up from laying down and fell forward, hitting his forehead. Negative LOC. He states the cause of the fall was generalized weakness. Additionally c/o nausea which has been present for a while. Denies any pain including neck, chest and hip pain. Is not on blood thinners. Pt has esophageal CA and has completed both chemotherapy and radiation and is not currently undergoing either. Is unsure if Tetanus is UTD. - History Of Current Complaint Chief Complaint: EDHeadInjury Stated Complaint: FALL/HEAD INJURY Time Seen by Provider: 08/16/17 04:00 Hx Obtained From: Patient Mechanism Of Injury: Fall From A Standing Position Severity Currently: None Pain Intensity: 0 Pain Scale Used: 0-10 Numeric Location of Head Injury: Frontal Location: Discrete At: - Forehead Aggravating Factor(s): Other: - Nothing Alleviating Factor(s): Other: - Nothing Associated Signs And Symptoms: Nausea, Other: - Generalized weakness - Allergies/Home Medications Allergies/Adverse Reactions: Allergies Allergy/AdvReac Type Severity Reaction Status Date / Time Red Dye Allergy Rash Verified 06/22/17 06:40 PMH/Surg Hx/FS Hx/Imm Hx Endocrine/Hematology History: Denies: Hx Diabetes Cardiovascular History: Denies: Hx Angina, Hx Coronary Artery Disease, Hx Hypercholesterolemia, Hx Hypertension, Hx Myocardial Infarction, Hx Peripheral Vascular Disease, Hx Valvular Heart Disease, Other Cardiovascular Problems/Disorders Respiratory History: Reports: Hx Chronic Obstructive Pulmonary Disease (COPD) - mild dx by PCP Denies: Other Respiratory Problems/Disorders GI History: Reports: Hx Gastroesophageal Reflux Disease, Other GI Disorders - esophageal cx History: Denies: Hx Dialysis, Hx Renal Disease Musculoskeletal History: Reports: Hx Back Problems - back pain Denies: Hx Arthritis, Hx Osteoporosis Comment Only: Other Musculoskeletal History - left knee arthroscopy in the 90s Sensory History: Reports: Hx Contacts or Glasses Denies: Hx Hearing Aid Opthamlomology History: Reports: Hx Contacts or Glasses Neurological History: Denies: Hx Dementia, Hx Headaches, Hx Seizures Psychiatric History: Reports: Hx Substance Abuse - ETOH Denies: Hx Anxiety, Hx Depression - Cancer History Cancer Type, Location and Year: ESOPHAGEAL CA Hx Chemotherapy: Yes Hx Radiation Therapy: Yes Hx Palliative Cancer Treatment: No - Surgical History Surgery Procedure, Year, and Place: APPENDECTOMY Hx Anesthesia Reactions: No - Immunization History Date of Tetanus Vaccine: unk Date of Influenza Vaccine: unk - Family History Known Family History: Negative: Hypertension, Diabetes - Social History Alcohol Use: Daily Alcohol Amount: daily to every other day 3-6 beers Substance Use Type: Reports: None Hx Tobacco Use: Yes Smoking Status (MU): Current Every Day Smoker Type: Cigarettes Amount Used/How Often: 1/2 PPD Length of Time of Smoking/Using Tobacco: 50 years Have You Smoked in the Last Year: Yes Review of Systems Positive: Other - Generalized weakness Negative: Chest Pain Positive: Nausea Positive: Other - NEGATIVE: Hip and neck pain Positive: Other - Forehead laceration Neurological: Other - Negative: LOC All Other Systems Reviewed And Are Negative: Yes Physical Exam - Summary Physical Exam Summary: Appearance: Well appearing, no pain distress Skin: warm, dry, reflects adequate perfusion Head/face: laceration over the forehead Eyes: EOMI, HERNANDEZ ENT: normal Neck: supple, nontender Respiratory: CTA, breath sounds present Cardiovascular: RRR, pulses symmetrical Abdomen: nontender, soft Bowel: present Musculoskeletal: normal, strength/ROM intact Neuro: normal, sensory motor intact, A&Ox3 Triage Information Reviewed: Yes Vital Signs Reviewed: Yes Diagnostics - Laboratory Result Diagrams: 08/16/17 05:10 08/16/17 05:10 Lab Statement: Any lab studies that have been ordered have been reviewed, and results considered in the medical decision making process. - Radiology CXR Xray Interpretation: No Acute Changes Radiology Interpretation Completed By: ED Physician KUB Xray Interpretation: No Acute Changes Radiology Interpretation Completed By: ED Physician - CT Brain CT CT Interpretation: No Acute Changes - Involutional changes. No hemorrhage. No mass. No visible acute infarct. Osseous structures are intact. ED physician reviewed radiology report and agrees. CT Interpretation Completed By: Radiologist - EKG 0514 Cardiac Rate: Tachycardia - 102 bpm EKG Rhythm: Sinus Tachycardia EKG Interpretation: No acute changes Re-Evaluation - Re-Evaluation First Eval Re-Evaluation Time: 06:06 Comment: Discussed D/C plan with the pt. Head Injury Course/Dx Assessment/Plan: Pt is a 67 y/o M BIBA who presents to ED with a forehead laceration s/p head injury. This morning the pt got up from laying down and fell forward, hitting his forehead. Negative LOC. He states the cause of the fall was generalized weakness. Additionally c/o nausea which has been present for a while. Denies any pain including neck, chest and hip pain. Is not on blood thinners. Pt has esophageal CA and has completed both chemotherapy and radiation and is not currently undergoing either. Is unsure if Tetanus is UTD. Brain CT, CXR and KUB reveal no acute findings. EKG is sinus tachy with no acute changes. In the ED course, pt was given Zofran, fluids and Boostrix. Pt will be D/C to home with Dx of superficial laceration of head and head injury with a follow up with his PCP. He understands and agrees. Elevated BP noted. - Diagnoses Provider Diagnoses: Head injury, Superficial laceration of scalp Discharge - Discharge Plan Condition: Stable Disposition: HOME Patient Education Materials: Head Injury (ED), Laceration (ED) Referrals: Xiomy Elizondo MD [Primary Care Provider] - 3 Days The documentation as recorded by the Pilar rao Rebecca accurately reflects the service I personally performed and the decisions made by , Randall Molina.
[2017-08-16 06:36] VITALS: BP 122/61
--- NOTE | 2017-08-16 08:07 | RAD ---
INDICATION: Emesis COMPARISON: None TECHNIQUE: 2 views the abdomen were obtained. FINDINGS: There are no acute bony or soft tissue abnormalities. The bowel gas pattern is normal. There is a moderate amount of stool overlying the renal shadows. There are no obvious coarse calcifications overlying the expected location of the bilateral collecting systems or ureters. IMPRESSION:Normal KUB.
--- NOTE | 2017-08-16 08:07 | RAD ---
INDICATION: Emesis COMPARISON: Most recent comparison chest x-ray July 10, 2017 TECHNIQUE: Single AP view of the chest was obtained. FINDINGS: There is a right internal jugular vein Mediport with the tip terminating at the cavoatrial junction. The heart and mediastinum exhibit normal size and contour. The lungs are grossly clear. The consolidation and pleural effusion seen in the bilateral lung bases on the previous chest x-ray has resolved. Visualized bones are normal for the patient's age. IMPRESSION: No radiographic evidence for acute cardiopulmonary abnormality on this single AP view chest x-ray.
--- NOTE | 2017-08-16 08:10 | RAD ---
INDICATION: Frontal bone versus floor after a fall COMPARISON: None. TECHNIQUE: Contiguous axial sections of the brain were obtained from the skull base to the vertex without contrast. FINDINGS: The ventricles, cisterns and sulci exhibit symmetrical involutional changes. There is mild periventricular and subcortical white matter hypoattenuation most consistent with chronic microvascular disease. A subcentimeter hypoattenuating focus at the left subinsular ribbon (image 17) could represent a lacunar infarction or perivascular space. The river-white matter differentiation is adequately maintained and there is no sulcal effacement. No significant focal abnormality or mass effect is present. There is no evidence for intracranial hemorrhage. At the right of midline frontal bone there is mild thickening and subcutaneous induration. No significant focal osseous abnormality is present. The visualized portion of the paranasal sinuses and mastoid air cells appear clear. IMPRESSION: 1. Evidence of subcutaneous superficial injury overlying the right of midline frontal bone without underlying calvarial fracture or acute intracranial hemorrhage. 2. Chronic and degenerative appearing changes described above.
== END 2017-08-16 06:37 | disposition home or self-care (01) ==
LOC: ED 03:57
DX: S00.90XA Unspecified superficial injury of unspecified part of head, initial encounter (principal); S01.81XA Laceration without foreign body of other part of head, initial encounter; W19.XXXA Unspecified fall, initial encounter; Y93.9 Activity, unspecified; Y92.9 Unspecified place or not applicable
CPT/HCPCS: 36415; 70450; 71010; 74000; 80053; 84484; 85025; 85610; 85730; 90715; 93005; 96372; 96374; 99282; J2405

== ENCOUNTER 2018-06-12 15:48 | Emergency (ER) | payer MEDICARE ==
[2018-06-12] MEDS ORDERED: LORazepam INJ* 2 MG/ML 1 ML VIAL IV ONE (16:00)
[2018-06-12] MEDS ORDERED: Ketorolac INJ* 30 MG/ML 1 ML VIAL IM ONE (16:00)
--- NOTE | 2018-06-12 16:08 | ED ---
Back Pain - HPI Summary HPI Summary: This is maira Herring documenting for attending Tao Newman MD. This patient is a 68 year old M BIBA with a chief complaint of worsening lower back that began a week ago. Pt reports that his pain this morning was the worst its ever been and he could not get out of bed on his own. The patient rates the pain 2/10 in severity. Symptoms aggravated by movement. Patient reports difficulty ambulating and bilateral leg pain. Patient denies incontinence or numbness in his LEs. pt had a CAT scan in February that showed compression fractures in his back. Pt reports he doesnt recall injuring his back. Pt says he usually walks independently but he cannot today. Pt does not take any medication for his back pain. PMHX Slip discs. SHx lives at [place]. NKDA. - History of Current Complaint Chief Complaint: EDBackInjuryPain Stated Complaint: BACK PAIN Time Seen by Provider: 06/12/18 15:54 Hx Obtained From: Patient Onset/Duration: Gradual Onset, Lasting Weeks - 1 Onset/Duration: Started Weeks Ago - 1 Timing: Constant Back Pain Location: Is Discrete @ - lower back Severity Initially: Moderate Severity Currently: Moderate Pain Intensity: 2 Pain Scale Used: 0-10 Numeric Aggravating Symptom(s): Movement - Allergies/Home Medications Allergies/Adverse Reactions: Allergies Allergy/AdvReac Type Severity Reaction Status Date / Time red dye Allergy Mild Rash Verified 06/12/18 16:02 PMH/Surg Hx/FS Hx/Imm Hx Endocrine/Hematology History: Reports: Hx Anticoagulant Therapy - Aspirin Denies: Hx Diabetes Cardiovascular History: Denies: Hx Angina, Hx Coronary Artery Disease, Hx Hypercholesterolemia, Hx Hypertension, Hx Myocardial Infarction, Hx Peripheral Vascular Disease, Hx Valvular Heart Disease, Other Cardiovascular Problems/Disorders Respiratory History: Reports: Hx Chronic Obstructive Pulmonary Disease (COPD) - mild dx by PCP Denies: Other Respiratory Problems/Disorders GI History: Reports: Hx Gastroesophageal Reflux Disease, Other GI Disorders - esophageal cx History: Denies: Hx Dialysis, Hx Renal Disease Musculoskeletal History: Reports: Hx Back Problems - back pain Denies: Hx Arthritis, Hx Osteoporosis Comment Only: Other Musculoskeletal History - left knee arthroscopy in the 90s Sensory History: Reports: Hx Contacts or Glasses Denies: Hx Hearing Aid Opthamlomology History: Reports: Hx Contacts or Glasses Neurological History: Denies: Hx Dementia, Hx Headaches, Hx Seizures Psychiatric History: Reports: Hx Substance Abuse - ETOH Denies: Hx Anxiety, Hx Depression - Cancer History Cancer Type, Location and Year: ESOPHAGEAL CA Hx Chemotherapy: Yes Hx Radiation Therapy: Yes Hx Palliative Cancer Treatment: No - Surgical History Surgery Procedure, Year, and Place: APPENDECTOMY Hx Anesthesia Reactions: No - Immunization History Date of Tetanus Vaccine: unk Date of Influenza Vaccine: unk Infectious Disease History: No Infectious Disease History: Denies: Traveled Outside the [place] in Last 30 Days - Family History Known Family History: Negative: Hypertension, Diabetes - Social History Alcohol Use: Rare Alcohol Amount: daily to every other day 3-6 beers Substance Use Type: Reports: None Hx Tobacco Use: Yes Smoking Status (MU): Former Smoker Type: Cigarettes Amount Used/How Often: 1/2 PPD Length of Time of Smoking/Using Tobacco: 50 years Have You Smoked in the Last Year: Yes Review of Systems Negative: incontinence Positive: Myalgia - back pain, Decreased ROM, Other - leg pain Negative: Numbness - LE's All Other Systems Reviewed And Are Negative: Yes Physical Exam - Summary Physical Exam Summary: Appearance: The patient is well-nourished. It hurts the patient to move or ambulate. Skin: The skin is warm and dry and skin color reflects adequate perfusion. HEENT: The head is normocephalic and atraumatic. The pupils are equal and reactive. The conjunctivae are clear and without drainage. Nares are patent and without drainage. Mouth reveals moist mucous membranes and the throat is without erythema and exudate. The external ears are intact. The ear canals are patent and without drainage. The tympanic membranes are intact. Neck: The neck is supple with full range of motion and non-tender. There are no carotid bruits. There is no neck vein distension. Respiratory: Chest is non-tender. Lungs are clear to auscultation and breath sounds are symmetrical and equal. Cardiovascular: Heart is regular rate and rhythm. There is no murmur or rub auscultated. There is no peripheral edema and pulses are symmetrical and equal. Abdomen: The abdomen is soft and non-tender. There are normal bowel sounds heard in all four quadrants and there is no organomegaly palpated. Musculoskeletal: There is good capillary refill. Negative straight leg raise. Neurological: Patient is alert and oriented to person, place and time. Cranial nerves are grossly intact. Intact. Psychiatric: The patient has an appropriate affect and does not exhibit any anxiety or depression. Triage Information Reviewed: Yes Vital Signs On Initial Exam: Initial Vitals Temp Pulse Resp BP Pulse Ox 99.1 F 71 16 139/58 99 06/12/18 15:52 06/12/18 15:52 06/12/18 15:52 06/12/18 15:52 06/12/18 15:52 Vital Signs Reviewed: Yes Diagnostics - Vital Signs Vital Signs Temp Pulse Resp BP Pulse Ox 06/12/18 15:52 99.1 F 71 16 139/58 99 - Laboratory Lab Statement: Any lab studies that have been ordered have been reviewed, and results considered in the medical decision making process. Back Pain Course/Dx - Course Course Of Treatment: Mr. Tellez has a history of chronic low back pain which gets exacerbated periodically. He generally takes ibuprofen but the pain is worse this time and he can't walk around. He was given IM ketorolac and by mouth Ativan as a muscle relaxer and got some relief but not enough. He was then given by mouth Percocet and this gave him significant relief. He'll be given a short prescription for Percocet and recommended follow-up. - Diagnoses Provider Diagnoses: Low back strain Discharge - Sign-Out/Discharge Documenting (check all that apply): Patient Departure - Discharge - Discharge Plan Condition: Stable Disposition: HOME Prescriptions: oxyCODONE/Acetamin 5/325 MG* [Percocet 5/325 TAB*] 1 tab PO Q6H PRN #20 tab MDD 4 PRN Reason: Pain oxyCODONE/Acetamin 5/325 MG* [Percocet 5/325 TAB*] 1 tab PO Q6H PRN #20 tab MDD 4 PRN Reason: Pain Patient Education Materials: Low Back Strain (ED) Referrals: Xiomy Elizondo MD [Primary Care Provider] - 3 Days Additional Instructions: RETURN TO THE EMERGENCY DEPARTMENT FOR CHANGING OR WORSENING SYMPTOMS. - Billing Disposition and Condition Condition: STABLE Disposition: Home
[2018-06-12] MEDS ORDERED: LORazepam TAB(*) 1 MG PO ONE (16:13)
[2018-06-12] MEDS ORDERED: oxyCODONE/Acetamin 5/325 MG* TAB PO ONE (17:34)
[2018-06-12 18:48] VITALS: BP 118/59
== END 2018-06-12 18:47 | disposition home or self-care (01) ==
LOC: ED 15:48
DX: S39.012A Strain of muscle, fascia and tendon of lower back, initial encounter (principal); X58.XXXA Exposure to other specified factors, initial encounter; Y92.9 Unspecified place or not applicable; Z87.891 Personal history of nicotine dependence
CPT/HCPCS: 96372; 99283; A9270-GY; J1885; J2060

== ENCOUNTER 2018-06-14 09:44 | Observation (INO) | payer MEDICARE ==
[2018-06-14] MEDS ORDERED: Ketorolac INJ* 30 MG/ML 1 ML VIAL IV PUSH ONE (09:57)
[2018-06-14] MEDS ORDERED: Orphenadrine Citrate IV* 30 MG/ML 2 ML VIAL IV ONE (09:57)
[2018-06-14] MEDS ORDERED: Dexamethasone IV* 4 MG/ML 1 ML (4 MG) IV SLOW PU ONE (09:57)
[2018-06-14] MEDS ORDERED: Morphine VIAL* 10 MG/ML 1 ML VIAL IV ONE (09:58)
--- NOTE | 2018-06-14 10:38 | ED ---
Back Pain - HPI Summary HPI Summary: The pt is a 68 y/o male BIBA from [facility] to [facility] c/o severe lower back pain rated 8/10 in severity. He had slight pain 3-4 days ago which worsened this morning. The non-radiating pain is aggravated by movement such as twisting. The patient also notes one emesis episode this morning but denies any bowel or urinary problems. Pt. has a PMHx of chronic back pain. This is scribe Chary Spear documenting for attending Dr. Yevgeniy MD. - History of Current Complaint Chief Complaint: EDBackInjuryPain Stated Complaint: BACK PAIN Hx Obtained From: Patient Onset/Duration: Gradual Onset, Lasting Days, Worse Since - This morning Onset/Duration: Still Present Timing: Constant Back Pain Location: Is Discrete @ - Lower back Severity Initially: Moderate Severity Currently: Severe Pain Intensity: 8 Pain Scale Used: 0-10 Numeric Aggravating Symptom(s): Movement - such as turning Associated Signs And Symptoms: Positive: Other - Positive: vomiting, inability to move. Negative: Bladder Incontinence, Bowel Incontinence - Allergies/Home Medications Allergies/Adverse Reactions: Allergies Allergy/AdvReac Type Severity Reaction Status Date / Time red dye Allergy Mild Rash Verified 06/14/18 09:52 PMH/Surg Hx/FS Hx/Imm Hx Previously Healthy: No Endocrine/Hematology History: Reports: Hx Anticoagulant Therapy - Aspirin Denies: Hx Diabetes Cardiovascular History: Denies: Hx Angina, Hx Coronary Artery Disease, Hx Hypercholesterolemia, Hx Hypertension, Hx Myocardial Infarction, Hx Peripheral Vascular Disease, Hx Valvular Heart Disease, Other Cardiovascular Problems/Disorders Respiratory History: Reports: Hx Chronic Obstructive Pulmonary Disease (COPD) - mild dx by PCP Denies: Other Respiratory Problems/Disorders GI History: Reports: Hx Gastroesophageal Reflux Disease, Other GI Disorders - esophageal cx History: Denies: Hx Dialysis, Hx Renal Disease Musculoskeletal History: Reports: Hx Back Problems - back pain Denies: Hx Arthritis, Hx Osteoporosis Comment Only: Other Musculoskeletal History - left knee arthroscopy in the s Sensory History: Reports: Hx Contacts or Glasses Denies: Hx Hearing Aid Opthamlomology History: Reports: Hx Contacts or Glasses Neurological History: Denies: Hx Dementia, Hx Headaches, Hx Seizures Psychiatric History: Reports: Hx Substance Abuse - ETOH Denies: Hx Anxiety, Hx Depression - Cancer History Cancer Type, Location and Year: ESOPHAGEAL CA Hx Chemotherapy: Yes Hx Radiation Therapy: Yes Hx Palliative Cancer Treatment: No - Surgical History Surgery Procedure, Year, and Place: APPENDECTOMY Hx Anesthesia Reactions: No - Immunization History Date of Tetanus Vaccine: unk Date of Influenza Vaccine: unk Infectious Disease History: No Infectious Disease History: Denies: Traveled Outside the [place] in Last 30 Days - Family History Known Family History: Negative: Hypertension, Diabetes - Social History Occupation: Retired Lives: [facility] Alcohol Use: Rare Alcohol Amount: daily to every other day 3-6 beers Substance Use Type: Reports: None Hx Tobacco Use: Yes Smoking Status (MU): Former Smoker Type: Cigarettes Amount Used/How Often: 1/2 PPD Length of Time of Smoking/Using Tobacco: 50 years Have You Smoked in the Last Year: Yes Review of Systems Positive: Vomiting - One incident this AM Positive: incontinence, other - Negative: Urinary or bowel problems Positive: Other - Positive:Lower back pain , inability to move secondary to pain All Other Systems Reviewed And Are Negative: Yes Physical Exam - Summary Physical Exam Summary: VITAL SIGNS: Reviewed. GENERAL: Patient is a thin male who is lying comfortable in the stretcher. Patient is not in any acute respiratory distress. HEAD AND FACE: No signs of trauma. No ecchymosis, hematomas or skull depressions. No sinus tenderness. EYES: PERRLA, EOMI x 2, No injected conjunctiva, no nystagmus. EARS: Hearing grossly intact. Ear canals and tympanic membranes are within normal limits. MOUTH: Oropharynx within normal limits. NECK: Supple, trachea is midline, no adenopathy, no JVD, no carotid bruit, no c- spine tenderness, neck with full ROM. CHEST: Symmetric, no tenderness at palpation LUNGS: Clear to auscultation bilaterally. No wheezing or crackles. CVS: Regular rate and rhythm, S1 and S2 present, no murmurs or gallops appreciated. ABDOMEN: Soft, non-tender. No signs of distention. No rebound no guarding, and no masses palpated. Bowel sounds are normal. EXTREMITIES: FROM in all major joints, no edema, no cyanosis or clubbing. NEURO: Paraspinal muscular tenderness in the left and right lumbar spine. Alert and oriented x 3. No acute neurological deficits. Speech is normal and follows commands. SKIN: Dry and warm Triage Information Reviewed: Yes Vital Signs On Initial Exam: Initial Vitals Pulse Resp BP Pulse Ox 69 16 152/58 95 06/14/18 09:44 06/14/18 09:44 06/14/18 09:44 06/14/18 09:44 Vital Signs Reviewed: Yes Diagnostics - Vital Signs Vital Signs Temp Pulse Resp BP Pulse Ox 06/14/18 10:24 18 06/14/18 10:22 66 162/76 97 06/14/18 10:00 65 24 95 06/14/18 09:57 69 16 94 06/14/18 09:47 99.7 F 72 15 152/58 97 06/14/18 09:44 69 16 152/58 95 - Laboratory Result Diagrams: 06/14/18 12:17 06/14/18 12:17 Lab Statement: Any lab studies that have been ordered have been reviewed, and results considered in the medical decision making process. - Radiology Lumbar X-Ray Radiology Interpretation Completed By: Radiologist - IMPRESSION: 25% compression of the L1 vertebra which was present on prior exam of February2018. Diffuse osteopenia is noted. The ED Physician has reviewed this radiology report. - CT Lumbar CT CT Interpretation Completed By: Radiologist - IMPRESSION: OSTEOARTHRITIC CHANGES. CHRONIC L1 COMPRESSION DEFORMITY. NO ACUTE FINDINGS. The ED physician has reviewed this radiology report . Back Pain Course/Dx - Course Assessment/Plan: This patient is a 60-year-old male who presents to the emergency department via ambulance with a chief complaint of having lower back pain. The patient reports that the pain is 10 out of 10 without any radiation to the lower extremities and he denies any urinary of fecal dysfunction. Blood test results shows a white blood cell count of 13.5, hemoglobin of 10.8 and hematocrit 32. Sodium 134, glucose 114, CRP of 14.9. Urinalysis negative for UTI. X-ray of the lumbar spine impression: 25% compression of the L1 vertebral which was present in the prior exam on February 2018. The patient was given IV fluids, Toradol, and Decadron, Norflex and morphine. Patients symptoms have not improved therefore decided to do an abdominopelvic CT. CT of the lumbar spine impression, postural x-ray changes. Chronic L1 compression deformity. No acute findings. In the ED course the patient was given additional morphine for the pain however the symptoms have not improved. Therefore I discuss my physical exam findings and test results with Dr. Car who requested for me to discuss the case with Dr. Barrera from oncology since the patient has history of cancer. After Dr. Barrera reviewed his case he recommends actually for the patient to be admitted to the hospitalist since he has not seen this patient seems July last year. Therefore I discussed again with Dr. Car who accepted the patient for admission for intractable back pain. Patient is hemodynamically stable alert and oriented 3 - Diagnoses Differential Diagnosis/HQI/PQRI: Positive: Cauda Equina Syndrome, Compressive Cord Syndrome, Fracture, Herniated Disc, Strain, Sprain Provider Diagnoses: Intractable back pain - Provider Notifications Discussed Care Of Patient With: Catracho Ramsey Time Discussed With Above Provider: 14:57 Instructed by Provider To: Other - He recommends admitting the pt.15:00- I discussed pt care with Dr. Josep Rollins who accepted to admit the patient. Discharge - Sign-Out/Discharge Documenting (check all that apply): Patient Departure - Admit - Discharge Plan Condition: Stable Disposition: HOME Referrals: Xiomy Elizondo MD [Primary Care Provider] - - Billing Disposition and Condition Condition: STABLE Disposition: Home Attestation Statement Scribe Attestation: This is scribe Chary Spear documenting for attending Dr. Yevgeniy MD. User Type: Provider with Scribe Provider Attestation: The documentation recorded by the scribe accurately reflects the service I personally performed and the decisions made by me.
--- NOTE | 2018-06-14 10:39 | RAD ---
Indication: Back pain. 3 views of the lumbar spine demonstrate mild compression of 25% at the L1 level. Review of the CT dated February 07, 2018 demonstrates similar findings. Osteopenia is noted. Age of this is undetermined. IMPRESSION: 25% compression of the L1 vertebra which was present on prior exam of February 2018. Diffuse osteopenia is noted.
[2018-06-14 12:30] LABS: ABS Basophils 0.1 10^3/ul (0-0.2); ABS Eosinophils 0.1 10^3/ul (0-0.6); ABS Lymphocytes 0.6 10^3/ul (1.0-4.8); ABS Monocytes 0.3 10^3/ul (0-0.8); ABS Neutrophils 12.4 10^3/ul (1.5-7.7); ABS Nucleated RBC 0 10^3/ul; Eosinophil % 0.8 % (0-6); Hematocrit 32 % (42-52); Hemoglobin 10.8 g/dl (14.0-18.0); Lymphocyte % 4.4 % (25-47); Mean Corpuscular HGB Conc 34 g/dl (31-36); Mean Corpuscular Hemoglobin 34 pg (27-31); Mean Corpuscular Volume 98 fL (80-94); Mean Platelet Volume 6.7 um3 (7.4-10.4); Nucleated Red Blood Cells % 0; Platelet Count 324 10^3/ul (150-450); Red Blood Count 3.22 10^6/ul (4.00-5.40); Red Cell Distribution Width 15 % (10.5-15); White Blood Count 13.5 10^3/ul (3.5-10.8)
--- NOTE | 2018-06-14 12:32 | RAD ---
INDICATION: Back pain COMPARISON: Lumbar spine June 14, 2018; CT chest/abdomen/pelvis February 07, 2018 TECHNIQUE: Noncontrast axial source images was performed from the thoracolumbar junction to the sacrum. Coronal and and sagittal reformatted images were generated. FINDINGS: Vertebrae: There is no acute fracture or acute focal bony lesion. There is a chronic superior endplate compression deformity of L1, unchanged. There is no posterior element involvement are significant bony retropulsion. There are underlying osteoarthritic changes with multilevel facet arthropathy. Alignment: The lumbar vertebrae are normally aligned. Central Canal: There are no significant CT abnormalities of the central canal or foramina. MR imaging is a more sensitive method to evaluate the canal and foramina. Intervertebral disc spaces: There is moderate narrowing L4-L5. The remaining disc spaces are well-maintained. Soft tissues: The paravertebral soft tissues are normal. Other: None IMPRESSION: OSTEOARTHRITIC CHANGES. CHRONIC L1 COMPRESSION DEFORMITY. NO ACUTE FINDINGS.
[2018-06-14 12:52] LABS: EGFR Non-African American 90.9 (>60)
[2018-06-14 14:07] LABS: Urine Appearance Clear; Urine Blood Negative (Negative); Urine Color Yellow; Urine Ketones Negative (Negative); Urine Protein Negative (Negative); Urine Specific Gravity 1.019 (1.010-1.030); Urine Urobilinogen Negative (Negative)
[2018-06-14] MEDS ORDERED: Cyclobenzaprine TAB* 10 MG PO PRN (15:36)
[2018-06-14] MEDS ORDERED: Morphine INJ* 2 MG/ML 1 ML SYRINGE (TWO MG - NEW SYRINGE VERSION) IV PRN (15:36)
[2018-06-14] MEDS ORDERED: Ondansetron INJ* 2 MG/ML VIAL IV PRN (15:36)
[2018-06-14] MEDS ORDERED: Acetaminophen TAB* 325 MG PO PRN (15:36)
[2018-06-14] MEDS ORDERED: oxyCODONE TAB* 5 MG TAB PO PRN (15:36)
[2018-06-14] MEDS ORDERED: NS 0.9% 1000 ML* 1,000 ML IV SCH (15:45)
[2018-06-14] MEDS: Metoprolol Tartrate TAB* 50 mg PO SCH (20:36)
[2018-06-14] MEDS: Heparin VIAL(*) 5000 UNITS/ML VIAL (FIVE THOUSAND) SUBCUT SCH (20:36)
[2018-06-15] MEDS: Heparin VIAL(*) 5000 UNITS/ML VIAL (FIVE THOUSAND) SUBCUT SCH ×2 (05:34→13:31)
[2018-06-15 07:11] LABS: ABS Basophils 0.1 10^3/ul (0-0.2); ABS Eosinophils 0 10^3/ul (0-0.6); ABS Lymphocytes 1.4 10^3/ul (1.0-4.8); ABS Monocytes 0.6 10^3/ul (0-0.8); ABS Neutrophils 8.2 10^3/ul (1.5-7.7); ABS Nucleated RBC 0 10^3/ul; Eosinophil % 0.2 % (0-6); Hematocrit 30 % (42-52); Hemoglobin 10.5 g/dl (14.0-18.0); Lymphocyte % 13.8 % (25-47); Mean Corpuscular HGB Conc 34 g/dl (31-36); Mean Corpuscular Hemoglobin 34 pg (27-31); Mean Corpuscular Volume 99 fL (80-94); Mean Platelet Volume 7.2 um3 (7.4-10.4); Nucleated Red Blood Cells % 0; Platelet Count 320 10^3/ul (150-450); Red Blood Count 3.07 10^6/ul (4.00-5.40); Red Cell Distribution Width 15 % (10.5-15); White Blood Count 10.3 10^3/ul (3.5-10.8)
[2018-06-15 07:23] LABS: EGFR Non-African American 106.8 (>60)
[2018-06-15] MEDS ORDERED: Sertraline* 50 MG TAB PO SCH (09:00)
[2018-06-15] MEDS ORDERED: Aspirin EC TAB* 81 MG TAB.EC PO SCH (09:00)
[2018-06-15] MEDS: Metoprolol Tartrate TAB* 50 mg PO SCH (09:47)
[2018-06-15 12:31] VITALS: BP 135/54
--- NOTE | 2018-06-15 21:53 | HP ---
CC: Dr. Elizondo * HISTORY AND PHYSICAL: DATE OF ADMISSION: 06/14/18 PRIMARY CARE PROVIDER: Xiomy Elizondo MD ONCOLOGIST: Dr. Chanel. CHIEF COMPLAINT: Back pain. HISTORY OF PRESENT ILLNESS: Mr. Tellez is a 68-year-old male who states that over the last several years, he has had flare-ups of back pain, however, was always able to manage these at home. The patient states that he presented to the emergency room on 06/12/18 with complaints of back pain and at that point he was sent home with Percocet. Despite taking Percocet, the patient continued to have severe back pain that was incapacitating. The patient has been unable to ambulate and as he lives at [place], he needs to be independent; with his ambulation at this point, he is unable to do so. The patient described the pain as being a dull ache of the low back. He does not notice any radiation down in the legs. He does admit to muscle spasms. He denies any fevers or chills. PAST MEDICAL HISTORY: 1. History of alcoholism. 2. History of tobacco abuse. 3. GERD. 4. History of esophageal cancer - reportedly in remission. 5. Hypertension. 6. Peripheral neuropathy. PAST SURGICAL HISTORY: 1. Port placement and removal. 2. Appendectomy. 3. Left knee arthroscopic surgery. MEDICATIONS: 1. Aspirin 81 mg p.o. daily. 2. Sertraline 50 mg p.o. daily. 3. Metoprolol tartrate 50 mg p.o. q.12 hours. 4. Percocet 5/325 one tab p.o. q.6 hours p.r.n. pain. ALLERGIES: No known drug allergies. FAMILY HISTORY: The patient reports mom in her 70s of pneumonia and dad at the age of 70 of coronary disease. This, however, conflicts with prior family history obtained last year. SOCIAL HISTORY: The patient is a former smoker, he quit approximately 2 years ago. He smoked 1 pack per day for 20 years. He drinks a beer on occasion at this point. He does not quantify how much he drinks. He worked in construction previously. He is . He has 1 child. His daughter, Akilah, would be his healthcare proxy. REVIEW OF SYSTEMS: A complete 11-system review of systems is obtained. Pertinent positives and negatives are as per HPI and otherwise negative. PHYSICAL EXAMINATION GENERAL: The patient is a well-developed, elderly cachectic appearing male, lying flat on the stretcher, in no acute distress. VITAL SIGNS: Temp 99.0, BP 142/60, pulse 65, respirations 16, O2 sat 96% on room air. HEENT: Pupils are equal and round. Extraocular muscles are intact. Oropharynx is clear. Oral mucosa is moist. There is no submandibular, cervical , or supraclavicular adenopathy. There are no thyroid nodules or thyromegaly. There is temporal wasting. PULMONARY: Lungs are clear to auscultation bilaterally. CARDIAC: Normal S1, S2. Regular rate and rhythm. I do not appreciate any murmurs. ABDOMEN: Bowel sounds are present. Abdomen is soft, nontender, nondistended. MUSCULOSKELETAL: There is full active range of motion of the upper extremities. Lower extremity range of motion is severely limited due to severe back pain with any movement, though the patient is able to wiggle his toes bilaterally. NEUROLOGIC: Cranial nerves II through XII are grossly intact. Sensation is intact to light touch throughout. Strength is not tested in the lower extremity as it causes the patient severe pain to move his legs at all. PSYCH: The patient is alert. He is oriented x3. Affect appears appropriate. SKIN: Warm and dry. There are no rashes. DIAGNOSTIC STUDIES/LAB DATA: WBC 13.5, hemoglobin 10.8, hematocrit 32, platelets 324. Sodium 134, potassium 4.0, chloride 101, CO2 of 26, BUN 28, creatinine 0.84, glucose 114, calcium 9.4. Bilirubin 0.4, AST 14, ALT 11, alk phos 72. CRP 14.96. Albumin 3.5. Urinalysis is negative for signs of infection , the specific gravity of urine is 1.019. Lumbar spine CT reveals osteoarthritic changes and a chronic L1 compression deformity without any acute findings. ASSESSMENT AND PLAN: Mr. Tellez is a 68-year-old male with a history of esophageal cancer, past alcoholism, and hypertension who presents to the emergency room with complaints of intractable back pain. 1. Intractable back pain. The patient has failed numerous medications in the emergency room today. At this point, he will be admitted under observation status for continued pain control. We will consider PT evaluation tomorrow if not improved. The patient does have an elevated white blood cell count, though infection seems unlikely at this time; however, if the patient fails to improve or if he develops fever or increased white blood cell count, MRI of the spine could be considered for evaluation of possible epidural abscess. 2. Hypertension. The patient's blood pressure is under fair control. He will be maintained on his usual dose of metoprolol. 3. Depression. Continue Zoloft. 4. DVT prophylaxis: According to the Adult Thrombosis Prophylaxis Risk Factor Assessment Guide, the patient has a total risk factor score of 4, making him high risk. He will be placed on heparin 5000 units subcutaneous q.8 hours. 5. Code status is full. TIME SPENT: Sixty-five minutes was spent admitting this patient. [id number]/[facility] #: [id number] GLORIA
--- NOTE | 2018-06-16 03:43 | DS ---
CC: Dr. Elizondo* DISCHARGE SUMMARY: DATE OF ADMISSION: 06/14/18 DATE OF DISCHARGE: 06/15/18 PRIMARY CARE PROVIDER: Dr. Elizondo. ONCOLOGIST: Dr. Chanel. PRINCIPAL DIAGNOSIS: Intractable back pain. SECONDARY DIAGNOSES: 1. History of alcoholism. 2. Malnutrition. 3. Chronic back pain. 4. History of esophageal cancer. DISCHARGE MEDICATIONS: 1. Aspirin 81 mg p.o. daily. 2. Sertraline 50 mg p.o. daily. 3. Metoprolol tartrate 50 mg p.o. twice daily. 4. Percocet 5/325 one tab p.o. q.4 hours p.r.n. pain (new frequency). 5. Flexeril 10 mg p.o. t.i.d. p.r.n. spasm. HOSPITAL COURSE: Mr. Tellez is a 68-year-old male who has a history of esophageal cancer reportedly in remission, past history of alcoholism, GERD, hypertension, and chronic back pain who presented to the emergency room with complaints of intractable back pain. The patient was initially in the emergency room on 06/12/18 with complaints of back pain and discharged home with Percocet. The patient returned to the emergency room on 06/14/18 with complaints of continued back pain and the inability to ambulate. The patient was admitted for pain control. Shortly after arriving to the floor, the patient was no longer requiring any pain medication. On the day of discharge, he was up and ambulating around the floor without any difficulty. He does feel that muscle relaxant has helped with his back pain. At this point, the patient is stable for return to [facility]. On the day of discharge, the patient was awake, alert, and oriented, sitting on the edge of the bed, in no acute distress. His vital signs are stable with being afebrile, blood pressure of 135/54, pulse 63, and respirations of 17. His cardiac exam reveals a normal S1 and S2 with a regular, rate, and rhythm. His lungs are clear. His abdomen is soft, nontender, nondistended. He is moving all 4 extremities symmetrically. FOLLOWUP CONCERNS: The patient is being discharged back to [facility] today 06/15. Activity level is as tolerated. Diet is regular as tolerated. Condition on discharge is stable. TIME SPENT: Twenty-five minutes was spent discharging this patient. [id number]/CPS #: [id number]
== END 2018-06-15 16:45 | disposition home or self-care (01) ==
LOC: ED 09:44 → MED 16:16
PROVIDERS: ADMIT Hospitalist; ATTEND Hospitalist
DX: M54.9 Dorsalgia, unspecified (principal); F10.21 Alcohol dependence, in remission; G89.29 Other chronic pain; Z85.01 Personal history of malignant neoplasm of esophagus; Z79.82 Long term (current) use of aspirin
CPT/HCPCS: 36415; 72100; 72131; 80048; 80053; 81003; 85025; 86140; 87641; 96374; 96375; 99284; A9270-GY; G0378; J1100; J1644; J1885; J2270; J2360

== ENCOUNTER 2018-06-26 03:44 | Emergency (ER) | payer MEDICARE, MEDICAID ==
[2018-06-26] MEDS ORDERED: Diazepam TAB(*) 5 MG PO ONE (04:03)
[2018-06-26] MEDS ORDERED: HYDROmorphone INJ* 2 MG/ML CARPUJECT SYRINGE IM ONE (04:03)
--- NOTE | 2018-06-26 04:40 | ED ---
Back Pain - HPI Summary HPI Summary: This patient is a 68 year old M BIBA to [facility] with a chief complaint of acute on chronic back pain. The patient rates the pain 10/10 in severity. Symptoms aggravated by nothing. Symptoms alleviated by nothing. Patient reports diarrhea. Patient denies double vision, blurred vision, headache, ear ache, sore throat, vomiting, bilateral LE edema, rash, anxiety, depression, dysuria, fever, and chills. - History of Current Complaint Chief Complaint: EDBackInjuryPain Stated Complaint: BACK PAIN Hx Obtained From: Patient Onset/Duration: Sudden Onset, Lasting Weeks, Still Present, Worse Since - Yesterday Onset/Duration: Started Weeks Ago, Still Present Timing: Constant Back Pain Location: Is Diffuse Severity Initially: Severe Severity Currently: Severe Pain Intensity: 10 Pain Scale Used: 0-10 Numeric Aggravating Symptom(s): Nothing Alleviating Symptom(s): Nothing Associated Signs And Symptoms: Positive: Other - Positive diarrhea. Negative double vision, blurred vision, headache, ear ache, sore throat, vomiting, bilateral LE edema, rash, anxiety, depression, dysuria, fever, and chills. - Allergies/Home Medications Allergies/Adverse Reactions: Allergies Allergy/AdvReac Type Severity Reaction Status Date / Time red dye Allergy Mild Rash Verified 06/14/18 09:52 PMH/Surg Hx/FS Hx/Imm Hx Previously Healthy: No Endocrine/Hematology History: Denies: Hx Anticoagulant Therapy - Aspirin, Hx Diabetes Cardiovascular History: Reports: Hx Hypertension Denies: Hx Angina, Hx Coronary Artery Disease, Hx Hypercholesterolemia, Hx Myocardial Infarction, Hx Peripheral Vascular Disease, Hx Valvular Heart Disease , Other Cardiovascular Problems/Disorders Respiratory History: Reports: Hx Chronic Obstructive Pulmonary Disease (COPD) - mild dx by PCP, Hx Pleural Effusion Denies: Hx Pneumonia, Other Respiratory Problems/Disorders GI History: Reports: Hx Gastroesophageal Reflux Disease, Other GI Disorders - esophageal cx History: Denies: Hx Dialysis, Hx Renal Disease Musculoskeletal History: Reports: Hx Arthritis, Hx Back Problems - back pain, Other Musculoskeletal History - left knee arthroscopy in the 90s, osteopenia Denies: Hx Osteoporosis Sensory History: Reports: Hx Contacts or Glasses Denies: Hx Hearing Aid Opthamlomology History: Reports: Hx Contacts or Glasses Neurological History: Denies: Hx Dementia, Hx Headaches, Hx Seizures, Hx Transient Ischemic Attacks (TIA) Psychiatric History: Reports: Hx Depression, Hx Substance Abuse - ETOH Denies: Hx Anxiety - Cancer History Cancer Type, Location and Year: ESOPHAGEAL CA Hx Chemotherapy: Yes Hx Radiation Therapy: Yes Hx Palliative Cancer Treatment: No - Surgical History Surgery Procedure, Year, and Place: APPENDECTOMY, L knee arthroscopy in 's Hx Anesthesia Reactions: No - Immunization History Date of Tetanus Vaccine: unk Date of Influenza Vaccine: unk Infectious Disease History: No Infectious Disease History: Denies: Traveled Outside the [place] in Last 30 Days - Family History Known Family History: Negative: Hypertension, Diabetes - Social History Occupation: Retired Lives: At [facility] Alcohol Use: Rare Alcohol Amount: daily to every other day 3-6 beers Substance Use Type: Reports: None Hx Tobacco Use: Yes Smoking Status (MU): Former Smoker Type: Cigarettes Amount Used/How Often: 1/2 PPD Length of Time of Smoking/Using Tobacco: 50 years Have You Smoked in the Last Year: Yes Review of Systems Negative: Fever, Chills Negative: Blurred Vision, Diplopia Negative: Sore Throat Negative: Chest Pain Positive: Diarrhea. Negative: Vomiting Negative: dysuria Positive: Other - Positive back pain. Negative: Edema Negative: Rash, Bruising Negative: Headache Negative: Anxious, Depressed All Other Systems Reviewed And Are Negative: No Physical Exam - Summary Physical Exam Summary: Appearance: Alert, conversive, nontoxic appearing Skin: Warm, dry, no mottling, no rashes, no contusions HEENT: EOMI, PERRL, moist mucous membranes Neck: No masses on the neck, supple Respiratory: Clear to auscultation, breath sounds present, no rales, no rhonchi , no wheezes Cardiovascular: RRR, pulses are symmetrical in both lower and upper extremities Abdomen: Soft, non-tender Bowel Sounds: Present Musculoskeletal: No CVA tenderness, no obvious deformity, moving all extremities in a grossly normal manner Neurological: A&Ox3, CN II-XII Intact, moving all extremities symmetrically Psychiatric: Normal affect and mood Triage Information Reviewed: Yes Vital Signs On Initial Exam: Initial Vitals Temp Pulse Resp BP Pulse Ox 98.4 F 67 20 180/69 100 06/26/18 03:52 06/26/18 03:52 06/26/18 03:52 06/26/18 03:52 06/26/18 03:52 Vital Signs Reviewed: Yes Diagnostics - Vital Signs Vital Signs Temp Pulse Resp BP Pulse Ox 06/26/18 04:21 18 06/26/18 03:52 98.4 F 67 20 180/69 100 - Laboratory Lab Statement: Any lab studies that have been ordered have been reviewed, and results considered in the medical decision making process. Back Pain Course/Dx - Course Course Of Treatment: This patient is a 68 year old M BIBA to [facility] with a chief complaint of acute on chronic back pain. Physical Exam Findings: Nml. In the ED course the patient was given diazepam and hydromorphone. Patient will be discharged with follow up from PCP. The patient is agreeable with this plan. - Diagnoses Provider Diagnoses: Exacerbation of chronic back pain Discharge - Sign-Out/Discharge Documenting (check all that apply): Patient Departure - Discharge home - Discharge Plan Condition: Stable Disposition: HOME Patient Education Materials: Chronic Pain (ED), Low Back Strain (ED) Referrals: Xiomy Elizondo MD [Primary Care Provider] - Additional Instructions: Take all medications as previously instructed especially your pain medications. Discuss with your doctor your breakthrough pain. return if worse or any new symptoms. Attestations Scribe Attestation: This is maira Ragsdale documenting for attending Elizabeth Min MD. User Type: Provider with Scribe Provider Attestation: The documentation recorded by the scribe accurately reflects the service I personally performed and the decisions made by me.
[2018-06-26 06:15] VITALS: BP 111/46
== END 2018-06-26 06:11 | disposition home or self-care (01) ==
LOC: ED 03:44
DX: M54.9 Dorsalgia, unspecified (principal); R19.7 Diarrhea, unspecified; Z79.82 Long term (current) use of aspirin; Z87.891 Personal history of nicotine dependence
CPT/HCPCS: 96372; 99282; A9270-GY; J1170

== ENCOUNTER 2018-11-23 09:28 | Inpatient (IN) | payer MEDICARE ==
--- NOTE | 2018-11-23 10:16 | ED ---
Shortness of Breath - HPI Summary HPI Summary: A 68 y/o M presents to ED with c/o L-sided CP with SOB onset yesterday but worsening greatly today. At bedside, CP is rated as 8 out of 10. Patient denies fever, chills, cough, ad pain, n/v/d. Aggravating fator: deep breaths. He has not had previous episodes of similar pain. Denies PMHx: HTN, DM. No daily medications. Past surgeries: Appy, knee. He is a former smoker (quit 3 years ago ). - History of Current Complaint Chief Complaint: EDShortnessOfBreath Time Seen by Provider: 11/23/18 09:42 Hx Obtained From: Patient Onset/Duration: Lasting Days - yesterday, Still Present Timing: Constant Current Severity: Severe - 8 out of 10 Aggrevating Factors: Deep Breaths Associated Signs & Symptoms: Chest Pain Unrelated to Cough - Allergy/Home Medications Allergies/Adverse Reactions: Allergies Allergy/AdvReac Type Severity Reaction Status Date / Time red dye Allergy Mild Rash Verified 06/14/18 09:52 Home Medications: Home Medications Cyclobenzaprine TAB* [Flexeril 10 MG TAB*] 10 mg PO Q8HR 11/23/18 [History Confirmed 11/23/18] Metoprolol Tartrate TAB* [Lopressor TAB*] 50 mg PO BID 11/23/18 [History Confirmed 11/23/18] Omeprazole CAP (NF) [Prilosec CAP* 20 MG] 20 mg PO DAILY 11/23/18 [History Confirmed 11/23/18] oxyCODONE/Acetamin 5/325 MG* [Percocet 5/325 TAB*] 1 tab PO Q6HR PRN MDD 4 11/23 [History Confirmed 11/23/18] PMH/Surg Hx/FS Hx/Imm Hx Previously Healthy: No Endocrine/Hematology History: Denies: Hx Anticoagulant Therapy - Aspirin, Hx Diabetes Cardiovascular History: Reports: Hx Hypertension Denies: Hx Angina, Hx Coronary Artery Disease, Hx Hypercholesterolemia, Hx Myocardial Infarction, Hx Peripheral Vascular Disease, Hx Valvular Heart Disease , Other Cardiovascular Problems/Disorders Respiratory History: Reports: Hx Chronic Obstructive Pulmonary Disease (COPD) - mild dx by PCP, Hx Pleural Effusion, Other Respiratory Problems/Disorders - PNEUMONIA Denies: Hx Pneumonia GI History: Reports: Hx Gastroesophageal Reflux Disease, Other GI Disorders - esophageal cx History: Denies: Hx Dialysis, Hx Renal Disease Musculoskeletal History: Reports: Hx Arthritis, Hx Back Problems - back pain, Other Musculoskeletal History - left knee arthroscopy in the , osteopenia Denies: Hx Osteoporosis Sensory History: Reports: Hx Contacts or Glasses Denies: Hx Hearing Aid Opthamlomology History: Reports: Hx Contacts or Glasses Neurological History: Denies: Hx Dementia, Hx Headaches, Hx Seizures, Hx Transient Ischemic Attacks (TIA) Psychiatric History: Reports: Hx Depression, Hx Substance Abuse - ETOH Denies: Hx Anxiety - Cancer History Cancer Type, Location and Year: ESOPHAGEAL CA Hx Chemotherapy: Yes Hx Radiation Therapy: Yes Hx Palliative Cancer Treatment: No - Surgical History Surgery Procedure, Year, and Place: APPENDECTOMY, L knee arthroscopy in Hx Anesthesia Reactions: No - Immunization History Date of Tetanus Vaccine: unk Date of Influenza Vaccine: unk Immunizations Up to Date: Yes Infectious Disease History: No Infectious Disease History: Denies: Traveled Outside the [place] in Last 30 Days - Family History Known Family History: Negative: Cardiac Disease, Hypertension, Diabetes - Social History Occupation: Retired Lives: With Family Alcohol Use: Weekly Alcohol Amount: daily to every other day 3-6 beers Substance Use Type: Reports: None Hx Tobacco Use: Yes Smoking Status (MU): Former Smoker Type: Cigarettes Amount Used/How Often: 1/2 PPD Length of Time of Smoking/Using Tobacco: 50 years Have You Smoked in the Last Year: Yes Review of Systems Negative: Fever, Chills Positive: Chest Pain Positive: Shortness Of Breath. Negative: Cough Negative: Abdominal Pain, Vomiting, Diarrhea, Nausea All Other Systems Reviewed And Are Negative: Yes Physical Exam - Summary Physical Exam Summary: VITAL SIGNS: Reviewed. GENERAL: Patient is a well-developed, thin MALE who is lying comfortable in the stretcher. Patient is not in any acute respiratory distress. HEAD AND FACE: No signs of trauma. No ecchymosis, hematomas or skull depressions. No sinus tenderness. EYES: PERRLA, EOMI x 2, No injected conjunctiva, no nystagmus. EARS: Hearing grossly intact. Ear canals and tympanic membranes are within normal limits. MOUTH: Oropharynx within normal limits. NECK: Supple, trachea is midline, no adenopathy, no JVD, no carotid bruit, no c- spine tenderness, neck with full ROM. CHEST: Symmetric, no tenderness at palpation LUNGS: Clear to auscultation bilaterally. No wheezing or crackles. CVS: Regular rate and rhythm, S1 and S2 present, no murmurs or gallops appreciated. ABDOMEN: Soft, non-tender. No signs of distention. No rebound, no guarding, and no masses palpated. Bowel sounds are normal. EXTREMITIES: FROM in all major joints, no edema, no cyanosis or clubbing. NEURO: Alert and oriented x 3. No acute neurological deficits. Speech is normal and follows commands. SKIN: Dry and warm Triage Information Reviewed: Yes Vital Signs On Initial Exam: Initial Vitals Temp Pulse Resp BP Pulse Ox 99.7 F 94 22 130/66 92 11/23/18 09:34 11/23/18 09:34 11/23/18 09:34 11/23/18 09:34 11/23/18 09:34 Vital Signs Reviewed: Yes Diagnostics - Vital Signs Vital Signs Temp Pulse Resp BP Pulse Ox 11/23/18 09:34 99.7 F 94 22 130/66 92 - Laboratory Result Diagrams: 11/23/18 10:15 11/23/18 10:15 Lab Statement: Any lab studies that have been ordered have been reviewed, and results considered in the medical decision making process. - Radiology CXR Radiology Interpretation Completed By: Radiologist Summary of Radiographic Findings: IMPRESSION: THERE HAS BEEN INTERVAL DEVELOPMENT OF A MIXED INTERSTITIAL AND AIRSPACE PATTERN OF OPACIFICATION OF THE LEFT UPPER LOBE. THIS MAY REFLECT PNEUMONITIS AND PNEUMONIC CONSOLIDATION IN THE SETTING OF INFECTION. NEOPLASM INCLUDING LYMPHANGITIC SPREAD OF TUMOR IS ALSO WITHIN THE DIFFERENTIAL. RECOMMEND FOLLOW-UP UNTIL RESOLUTION TO EXCLUDE UNDERLYING PULMONARY PARENCHYMAL PATHOLOGY. IF THE CLINICAL PRESENTATION IS NOT CONSISTENT. WITH INFECTION, CONSIDER FURTHER EVALUATION WITH CONTRAST-ENHANCED CT OF THE CHEST. ED provider has reviewed this report. - EKG 0950 Cardiac Rate: NL - 87 bpm EKG Rhythm: Sinus Rhythm ST Segment: Normal - no ST elevation EKG Comparison: No Significant Change - from EKG on 08/16/17 Course/Dx - Course Assessment/Plan: A 68 y/o M presents to ED with c/o L-sided CP with SOB onset yesterday but worsening greatly today. At bedside, CP is rated as 8 out of 10. Patient denies fever, chills, cough, ad pain, n/v/d. Aggravating factor: deep breaths. He has not had previous episodes of similar pain. Denies PMHx: HTN, DM. No daily medications. Past surgeries: Appy, knee. He is a former smoker ( quit 3 years ago). Blood work without any significant abnormality except for WBCs of 12, hemoglobin: 10.8 and hematocrit: 32, and platelets 384. There is no bandemia. BUN is 27, glucose 112, CRP is 16.4, and BMP 126. Influenza A and B negative. CXR IMPRESSION: THERE HAS BEEN INTERVAL DEVELOPMENT OF A MIXED INTERSTITIAL AND AIRSPACE PATTERN OF OPACIFICATION OF THE LEFT UPPER LOBE. THIS MAY REFLECT PNEUMONITIS AND PNEUMONIC CONSOLIDATION IN THE SETTING OF INFECTION. NEOPLASM INCLUDING LYMPHANGITIC SPREAD OF TUMOR IS ALSO WITHIN THE DIFFERENTIAL. RECOMMEND FOLLOW-UP UNTIL RESOLUTION TO EXCLUDE UNDERLYING PULMONARY PARENCHYMAL PATHOLOGY. IF THE CLINICAL PRESENTATION IS NOT CONSISTENT. WITH INFECTION, CONSIDER FURTHER EVALUATION WITH CONTRAST-ENHANCED CT OF THE CHEST. In the ED course the patient was placed in a equipment monitor phototypesetting, IV access was obtained, patient was started with Rocephin and azithromycin. I discuss my physical exam, findings and test results with Dr. Tidwell from the hospitalist services and he agrees to admit patient to his services. Patient is hemodynamically stable alert and oriented x 3. - Diagnoses Differential Diagnosis/HQI/PQRI: Positive: Asthma, Bronchitis, CHF, Chest Wall Pain, COPD Exacerbation, [place], Pneumonia Provider Diagnoses: PNA (pneumonia) - Physician Notifications Discussed Care of Patient With: Dipak Tidwell - hospitalist Time Discussed With Above Provider: 11:15 Instructed by Provider To: Admit As Inpatient Discharge - Sign-Out/Discharge Documenting (check all that apply): Patient Departure - ADMIT - Discharge Plan Condition: Stable Disposition: ADMITTED TO [facility] Referrals: Xiomy Elizondo MD [Primary Care Provider] - - Billing Disposition and Condition Condition: STABLE Disposition: Admitted to [facility] - Attestation Statements Document Initiated by Scribe: Yes Documenting Scribe: Joon Castillo Provider For Whom Scribe is Documenting (Include Credential): Dr. Eddi Vuong MD Scribe Attestation: I, Joon Castillo, scribed for Dr. Eddi Vuong MD on 11/23/18 at 1214. Scribe Documentation Reviewed: Yes Provider Attestation: The documentation as recorded by the scribe, Joon Castillo accurately reflects the service I personally performed and the decisions made by me, Dr. Eddi Vuong MD Status of Scribe Document: Viewed
[2018-11-23 10:29] LABS: ABS Basophils 0 10^3/ul (0-0.2); ABS Eosinophils 0 10^3/ul (0-0.6); ABS Lymphocytes 0.5 10^3/ul (1.0-4.8); ABS Monocytes 0.6 10^3/ul (0-0.8); ABS Neutrophils 10.9 10^3/ul (1.5-7.7); ABS Nucleated RBC 0 10^3/ul; Eosinophil % 0.1 %; Hematocrit 32 % (42-52); Hemoglobin 10.8 g/dl (14.0-18.0); Mean Corpuscular HGB Conc 34 g/dl (31-36); Mean Corpuscular Hemoglobin 33 pg (27-31); Mean Corpuscular Volume 99 fL (80-94); Mean Platelet Volume 6.2 fL (7.4-10.4); Nucleated Red Blood Cells % 0; Platelet Count 384 10^3/ul (150-450); Red Blood Count 3.23 10^6/ul (4.00-5.40); Red Cell Distribution Width 14 % (10.5-15)
[2018-11-23 10:40] LABS: Activated Partial Thrombo Time 31.7 seconds (26.0-36.3); INR 1.05 (0.77-1.02)
[2018-11-23 10:50] LABS: ALT 11 U/L (7-52); AST 17 U/L (13-39); Albumin 3.7 g/dL (3.2-5.2); Albumin/Globulin Ratio 1.1 (1-3); Alkaline Phosphatase 71 U/L (34-104); Anion Gap 8 mmol/L (2-11); Blood Urea Nitrogen 27 mg/dL (6-24); C Reactive Protein 16.43 mg/L (<8.01); CO2 Carbon Dioxide 25 mmol/L (22-32); Calcium 9.4 mg/dL (8.6-10.3); Chloride 104 mmol/L (101-111); EGFR Non-African American 83.9 (>60); Globulin 3.4 g/dL (2-4); Glucose 112 mg/dL (70-100); Potassium 3.5 mmol/L (3.5-5.0); Sodium 137 mmol/L (135-145); Total Protein 7.1 g/dL (6.4-8.9)
[2018-11-23] MEDS ORDERED: Piperacillin/Tazobac ADVAN(*) 3.375 GM in NS 0.9% 100 ML* 100 ML IVPB ONE (10:50)
[2018-11-23] MEDS ORDERED: cefTRIAXone(*) 1 GM in NS 0.9% 50 ML* 50 ML IVPB ONE (10:54)
[2018-11-23] MEDS ORDERED: Azithromycin TAB* 250 MG PO ONE (10:54)
[2018-11-23] MEDS ORDERED: HYDROcodone/ACETAMIN 5-325 MG* 1 TAB PO ONE (12:04)
[2018-11-23] MEDS ORDERED: Acetaminophen TAB* 325 MG PO PRN (12:18)
[2018-11-23] MEDS ORDERED: Benzonatate CAP* 100 MG PO PRN (12:18)
[2018-11-23] MEDS ORDERED: oxyCODONE/Acetamin 5/325 MG* TAB PO PRN ×2 (12:21→12:27)
[2018-11-23] MEDS ORDERED: cefTRIAXone(*) 1 GM in NS 0.9% 50 ML* 50 ML IVPB SCH (13:00)
[2018-11-23] MEDS ORDERED: DOXYcycline IV* 100 MG in NS 0.9% 250 ML* 250 ML IVPB SCH (13:00)
[2018-11-23] MEDS ORDERED: Lactated Ringers 1000 ML Bag* 1,500 ML IV SCH (13:00)
[2018-11-23] MEDS ORDERED: Lactated Ringers 1000 ML Bag* 1,000 ML IV SCH (13:00)
[2018-11-23] MEDS ORDERED: Iohexol 350* (CONTRAST) 500 ML MDV IV ONE (13:07)
[2018-11-23 13:30] LABS: Folate > 20.00 ng/mL (>3.99)
--- NOTE | 2018-11-23 14:31 | HP ---
CC: Dr. Xiomy Elizondo * ADMISSION HISTORY AND PHYSICAL: DATE OF ADMISSION: 11/23/18 PRIMARY CARE PROVIDER: Dr. Xiomy Elizondo. MY ATTENDING WHILE IN THE HOSPITAL: Dr. Isidoro Tidwell.* (DICTATED BY BRENTON HAMPTON) CHIEF COMPLAINT: Pleuritic chest pain and shortness of breath x2 days. HISTORY OF PRESENT ILLNESS: Mr. Tellez is a 68-year-old male with past medical history significant for esophageal cancer, currently reported to be in remission , with last recent treatment in June of 2017; PR in 2017; history of alcoholism and tobacco abuse, who presents to the emergency department with pleuritic chest pain on the left side of his chest for 2 days, which came on suddenly and was associated with an increase in his back pain. The patient states that he has a hard time taking a deep breath. The patient denies any trauma. The patient denies any radiation of his pain. The patient denies any diaphoresis, any lightheadedness or other associated symptoms. The patient denies productive cough. The patient has a significant amount of nausea and reflux mainly with sputum, which was associated with his esophageal cancer and it has been going on intermittently. The patient's back pain is in the similar spot to his chronic back pain, which is associated with compression fractures. The patient has no fevers or chills. The patient has no recent sick contacts, changes in his medications or exposure to people with the flu at his facility. The patient has a fluctuating appetite and has lost 8 pounds in the last 3 months. The patient had a chest x-ray in September of 2018, which did not show any acute cardiopulmonary process; however, a CT scan from August of 2018 did show a ground-glass opacity in the patient's left upper lobe, which is also present on chest x-ray today. The patient in the emergency department has slightly increased white blood cell count at 12.0. The patient also had temperature of 99.7 and a pulse rate of 94, as well as borderline hypoxia with an oxygen saturation of 90% on room air, which came up to 99% on 2 L. The patient had nonischemic EKG. Due to concern for pneumonia versus infiltrative lung process, we were asked to evaluate the patient for admission. PAST MEDICAL HISTORY: Esophageal cancer, in remission, last chemo treatment in 2016. Hypertension, GERD, history of alcoholism, history of tobacco abuse, myocardial infarction in 2017. PAST SURGICAL HISTORY: Appendectomy, left knee arthroscopy, port placement and removal. MEDICATIONS: 1. Sertraline 50 mg p.o. daily. 2. Aspirin 81 mg p.o. daily. 3. Prilosec 20 mg p.o. daily. 4. Metoprolol 50 mg p.o. daily. 5. Cyclobenzaprine 10 mg p.o. q.8 hours. 6. Percocet 5/325 one tab p.o. q.6 hours as needed. ALLERGIES: RED DYE. FAMILY HISTORY: The patient's father of complications of abdominal aortic aneurysm. The mother of complications of vulvar cancer treatment. The patient's sister has a history of breast cancer and the patient's brother recently of complications of lung cancer. SOCIAL HISTORY: The patient smoked for many years, he cannot quantify, but quit over 2 years ago. The patient has a history of using alcohol, but is not a current drinker. The patient denies illicit drug use. The patient used to work in [employer]. The patient has no known exposure to asbestos. The patient is and has 1 child. The patient's surrogate decision makers will be his sister, Jewels Tellez and his daughter, Akilah Tellez. REVIEW OF SYSTEMS: A 14-point review of systems was reviewed and is negative except as above in the HPI. PHYSICAL EXAMINATION GENERAL: The patient is a 68-year-old male, who appears stated age and sitting comfortably in bed, in no acute distress. VITAL SIGNS: At the time of evaluation, temperature 99.7, pulse rate 87, respiratory rate 16, oxygen saturation 99% on 2 L, blood pressure 170/90. HEENT: Head: Normocephalic, atraumatic. Sclerae anicteric. No conjunctival injection. Nasal mucosa moist. Oral mucosa moist. No pharyngeal erythema, discharge, or exudate. NECK: Supple, nontender. No lymphadenopathy. No carotid bruits auscultated. No JVD. RESPIRATORY: Slightly diminished breath sounds in the left lung. No wheezes, rales, or rhonchi. Good air exchange bilaterally. CARDIAC: Regular rate and rhythm. No clicks, murmurs, gallops, or rubs. Pulses are 2+ in the bilateral dorsalis pedis, posterior tibialis, and radial areas. No bilateral lower extremity edema noted. ABDOMEN: Soft, nontender, nondistended. Bowel sounds present and normoactive in all 4 quadrants. No hepatosplenomegaly. No abdominal bruits auscultated. No hepatojugular reflux. GENITOURINARY: No suprapubic or CVA tenderness. NEUROLOGIC: Cranial nerves II through XII intact. No focal deficits. Alert and oriented x3. PSYCHIATRIC: Pleasant and cooperative. SKIN: Clean, dry, and intact. No rash. DIAGNOSTIC STUDIES/LAB DATA: White blood cell count of 12.0, hemoglobin 10.8, MCV 99, MCH 33, platelet count 384. INR of 1.05, APTT 31.7. Sodium 137, potassium 3.5, chloride 104, carbon dioxide 25, anion gap 8, BUN 27, creatinine 0.9, glucose 112, lactic acid 1.5, calcium 9.4. Bilirubin 0.4, AST 17, ALT 11, alkaline phosphatase 71. CK-MB 1.5, troponin I of 0.01, CRP 16.43, BNP 126. Protein 7.1, albumin 3.7, globulin 3.4. Influenza A and B negative. Studies: Chest x-ray read as there has been interval development of mixed interstitial and airspace pattern of opacification in the left upper lobe. This may reflect pneumonitis and pneumonic consolidation in the setting of infection. Neoplasm including lymphangitic spread of tumor is also in the differential. Recommend followup until resolution to exclude underlying pulmonary parenchymal pathology. If the clinical presentation is not consistent with infection, consider further evaluation with contrast enhanced CT of the chest. Electrocardiogram shows normal sinus rhythm. No ST segment abnormalities except for early repolarization in V2, V3, possible left ventricular hypertrophy and left atrial enlargement, borderline left bundle branch block, normal R-wave progression, left axis deviation, rate of 87, QTc of 455. No T- wave inversions or other ischemic abnormalities. ASSESSMENT AND PLAN/IMPRESSION: Mr. Tellez is a 68-year-old male with past medical history significant for esophageal cancer, myocardial infarction and alcoholism as well as tobacco abuse, who presents to the emergency department with pleuritic chest pain and shortness of breath. The patient has no productive cough, no fever, no hypotension, no significant tachycardia. However , given the interval development of his ground-glass opacity from his most recent known normal x-ray in September, the patient will be treated for community -acquired pneumonia, but will also have evaluation for possible infiltrative or neoplastic process in his lung. 1. Pleuritic chest pain, shortness of breath. The patient had sudden onset pleuritic chest pain and shortness of breath starting 2 days ago with no obvious provoking factors. The patient will have ceftriaxone and doxycycline for community- acquired pneumonia. The patient will have sputum culture, urine Legionella and Strep pneumo antigens. The patient's CRP is mildly elevated. This can be trended as needed for indication of treatment success. The patient will have a contrast enhanced CTA of his chest to assess for pulmonary embolism which he is at increased risk of based on his cancer history as well as to further evaluate the ground-glass opacity in his left lung which could be consistent with lymphangitic spread and recurrence of esophageal cancer. If there is concern for this, the patient should be seen in consultation by Oncology to guide further in treatment decisions. The patient does have warning signs including fluctuating appetite and significant loss of weight for the past 3 months; however, the patient did have a negative PET scan in October of 2017 and has been followed closely by Oncology outpatient. The patient will have aggressive pulmonary toileting and monitored closely. The patient meets sepsis criteria. The patient has been given broad-spectrum antibiotics. The patient will receive his fluid bolus of 30 mL per kg. The patient will not have further fluids after that. The patient is not hypotensive. 2. Hypertension. Continue metoprolol. 3. Back pain. Continue the patient's outpatient Percocet with increased Percocet dosing for increasing pain and Flexeril tabs. CT of the patient's chest will help to elucidate further whether or not he has worsening spinal pathology in his thoracic spine. 4. Gastroesophageal reflux disease. Continue Prilosec. 5. History of myocardial infarction. Continue aspirin and metoprolol. Follow up outpatient for further risk stratification and secondary prevention. 6. DVT prophylaxis: The patient will have heparin subcu. The patient is at high risk. 7. FEN: The patient will have fluids as above and a heart-healthy diet without caffeine. 8. Code status: The patient would like to be a full code. The patient previously had DNR on file. The patient, however, has changed his mind at this time. The patient's surrogate decision makers will be his sister and his daughter as above. TIME SPENT: Approximately 60 minutes was spent on the admission of this patient , 30 of which was spent [id number] with the patient and his family obtaining history and physical and discussing treatment plan. Plan was discussed with my attending, Dr. Isidoro Tidwell, and he is in agreement. BRENTON HAMPTON [id number]/[facility] #: [id number] GL[place]IA
[2018-11-23] MEDS: Cyclobenzaprine TAB* 10 MG PO SCH ×2 (15:03→21:56)
[2018-11-23] MEDS: Heparin VIAL(*) 5000 UNITS/ML VIAL (FIVE THOUSAND) SUBCUT SCH ×2 (15:03→22:01)
[2018-11-23] MEDS: guaiFENesin ER TAB 600 MG PO SCH (21:59)
[2018-11-23 22:48] LABS: Urine Appearance Cloudy; Urine Bilirubin Negative (Negative); Urine Blood Negative (Negative); Urine Color Yellow; Urine Glucose Negative (Negative); Urine Ketones Negative (Negative); Urine Nitrite Negative (Negative); Urine Protein Negative (Negative); Urine Specific Gravity 1.034 (1.010-1.030); Urine Urobilinogen Negative (Negative)
[2018-11-23] MEDS: Metoprolol Tartrate TAB* 50 mg PO SCH (23:31)
--- NOTE | 2018-11-24 04:29 | CONS ---
MEDICAL ONCOLOGY CONSULTATION NOTE: DATE OF CONSULT: 11/23/18 REASON FOR CONSULT: Known esophageal carcinoma, presenting now with shortness of breath and pleuritic chest pain. HISTORY OF PRESENT ILLNESS: Mr. Tellez is a 68-year-old male who is known to our office since the spring. At that time, he was hospitalized in March 2017 with a question of an alcohol withdrawal seizure. He had a negative cardiac workup and a negative CT scan of his brain. He had significant weight loss along with anemia with low iron levels. He presents with difficulty swallowing solids and a 10-year history of heartburn. 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 Following initial workup through our office in April 2017, he had a CT scan with circumferential thickening of the distal esophagus and cardia region of the stomach without any obvious adenopathy or distant metastatic disease. PET scan also confirmed no evidence of distant mets. On , he was started definitive therapy with carboplatin and Taxol and radiation therapy. EUS was subsequently obtained within 1 week of starting therapy by Dr. Mcgee at the [facility] and revealed this to be T3N0. The patient completed carboplatin and Taxol chemotherapy in July 2018. The radiation therapy was completed, the last dose of chemotherapy was skipped due to fluid overload and myocardial infarction. The patient was discharged to a retirement, subsequently improved enough to return to care at [facility] in [facility]. The patient was most recently seen in the office on 11/18/18. At that time, he continued to have further weight loss and was extremely emaciated. He reports that he mostly grazes or eat small meals, occasionally has some cheese curds or few bites of dry cereal. Denied any difficulty or painful swallowing. Denied any fevers, night sweats, cough, or sore throat. [place] that he was at his baseline. His sister who always accompanies him and is also a patient through our office reported that she saw little change in his overall condition. Most recent CT scan had been in the fall of 2017, revealed a new compression fracture at T12 along with multiple old compression fractures. There was a subtle area of ground-glass appearance in the left upper lobe, felt most likely to be pneumonia and was treated with a course of Levaquin when seen by Dr. Oliveros. At the time of that office visit 15 months out from completing therapy , he seemed to be doing well without any obvious progressive or recurrent disease. He continued to struggle with oral intake and nutritional status. It was advised that he should try [place] Instant Breakfast since he does not like Boost or Ensure. Since that visit 5 days ago, he reports that he has developed increasing shortness of breath along with chest pain on the left. He denies any significant fevers, although he did have a temperature of 99.7 in the ER. PAST MEDICAL HISTORY: Otherwise significant for appendectomy, left knee arthroplasty, status post [id number], status post [id number] removal, myocardial infarction during his chemotherapy, history of alcoholism, hypertension, GERD, history of tobacco abuse. MEDICATIONS: 1. Sertraline 50 mg daily. 2. Aspirin 81 mg daily. 3. Prilosec 20 mg daily. 4. Metoprolol 50 mg daily. 5. Cyclobenzaprine 10 mg q.8 hours. 6. Percocet p.r.n. ALLERGIES: No medical allergies. FAMILY HISTORY: Sister with breast cancer. Brother of lung cancer. Mother of vulvar cancer. SOCIAL HISTORY: The patient lives at [facility]. He is , has one child. His surrogate decision maker is his sister, Jewels Tellez. Longstanding history of alcohol abuse and tobacco abuse with smoking at the time of his diagnosis of esophageal cancer, quit alcohol around the same period of time. REVIEW OF SYSTEMS: Denies any pain other than in the left chest. Denies any significant neurologic complaints. Denies any significant changes in bowel or bladder habits. Denies any significant symptoms of infection, predating those symptoms in the last 2 to 3 days. Review of systems is otherwise negative except as discussed above. PHYSICAL EXAM: A 68-year-old male, who is very cachectic but appears comfortable. Temperature 99.7, pulse 87, O2 saturation 99% on 2 L, blood pressure 170/90. HEENT: PERRL, EOMI. No erythema or exudates. No scleral icterus. No palpable cervical, supraclavicular, or axillary adenopathy. Lungs : Decreased breath sounds at the left base. Occasional rhonchi. No rales or wheezes. Right lung is clear. Heart: Regular rate and rhythm without murmurs, rubs, or gallops. Abdomen: Soft, nontender without masses or organomegaly. Extremely scaphoid. Extremities: No clubbing, cyanosis, or edema. Back: No CVA or spinal tenderness. Neurologic Exam: Without focal deficits. DIAGNOSTIC STUDIES/LAB DATA: White count 12,000, hemoglobin 10.8, platelet count 384,000 with essentially normal differential. Electrolytes: Sodium 137, potassium 3.5, chloride 104, bicarb 25, BUN 27, creatinine 0.9, glucose 112, lactic acid 1.5. Liver functions normal. CRP mildly elevated at 16.4. Influenza studies are negative. CT scan reveals significant airspace disease throughout the left upper lobe and extending somewhat into the left lower lobe. This is in the same location as the mild appearing pneumonia that he had on CT scan several months ago. No evidence for any pulmonary emboli. IMPRESSION: 1. Pleuritic chest pain and shortness of breath along with low-grade fever and elevated white count. Certainly reasonable to treat this as a community- acquired pneumonia. Although he denies aspirating, he certainly is at high risk for aspiration. It should be noted that on the CT scan, the esophagus is also more dilated than normal and more dilated than it was on the prior CT. It is possible that he has lymphangitic spread of tumor, although I believe this is less likely than an acute infectious etiology at the present time. Given the dilation of the esophagus, EGD to look for signs of recurrent/persistent esophageal carcinoma would also be reasonable. 2. Malnutrition. Severe protein calorie malnutrition with a continued ongoing weight loss. Use of nutritional supplements would certainly be an order along with a dietary consultation. 3. Gastroesophageal reflux disease. Continue with Prilosec. 4. History of myocardial infarction during his treatment for esophageal carcinoma. He should continue his baseline aspirin and metoprolol. [id number]/[facility] #: [id number] [facility]
[2018-11-24] MEDS: Cyclobenzaprine TAB* 10 MG PO SCH ×3 (06:09→20:25)
[2018-11-24] MEDS: Heparin VIAL(*) 5000 UNITS/ML VIAL (FIVE THOUSAND) SUBCUT SCH ×3 (06:10→20:26)
[2018-11-24 06:39] LABS: ABS Basophils 0.1 10^3/ul (0-0.2); ABS Eosinophils 0.1 10^3/ul (0-0.6); ABS Lymphocytes 1.2 10^3/ul (1.0-4.8); ABS Monocytes 0.8 10^3/ul (0-0.8); ABS Neutrophils 12.6 10^3/ul (1.5-7.7); ABS Nucleated RBC 0 10^3/ul; Eosinophil % 0.8 %; Hematocrit 29 % (42-52); Hemoglobin 9.9 g/dl (14.0-18.0); Lymphocyte % 8.1 %; Mean Corpuscular HGB Conc 34 g/dl (31-36); Mean Corpuscular Hemoglobin 34 pg (27-31); Mean Corpuscular Volume 99 fL (80-94); Mean Platelet Volume 7.2 fL (7.4-10.4); Nucleated Red Blood Cells % 0; Platelet Count 338 10^3/ul (150-450); Red Blood Count 2.94 10^6/ul (4.00-5.40); Red Cell Distribution Width 14 % (10.5-15); White Blood Count 14.8 10^3/ul (3.5-10.8)
[2018-11-24 06:56] LABS: BUN/Creatinine Ratio 28.9 (8-20); Calcium 9.2 mg/dL (8.6-10.3); Magnesium 1.6 mg/dL (1.9-2.7); Potassium 3.5 mmol/L (3.5-5.0)
[2018-11-24] MEDS: Sertraline* 25 MG TAB PO SCH (09:36)
[2018-11-24] MEDS: Aspirin EC TAB* 81 MG TAB.EC PO SCH (09:36)
[2018-11-24] MEDS: Pantoprazole TAB * 40 MG TAB PO SCH (09:36)
[2018-11-24] MEDS: guaiFENesin ER TAB 600 MG PO SCH ×2 (09:36→20:25)
[2018-11-24] MEDS: Metoprolol Tartrate TAB* 50 mg PO SCH ×2 (09:37→20:25)
[2018-11-24] MEDS: Ondansetron INJ* 2 MG/ML VIAL IV PRN (10:07)
[2018-11-24] MEDS ORDERED: DOXYcycline IV* 100 MG in NS 0.9% 250 ML* 250 ML IVPB SCH (11:00)
[2018-11-24] MEDS: NS 0.9% 1000 ML* 1,000 ML IV SCH ×2 (11:26→20:32)
[2018-11-24] MEDS ORDERED: Piperacillin/Tazobac ADVAN(*) 3.375 GM in NS 0.9% 100 ML* 100 ML IVPB ONE (11:30)
[2018-11-24] MEDS ORDERED: Zosyn per Pharmacy* NOTE FOLLOW UP SCH (12:00)
[2018-11-24] MEDS ORDERED: cefTRIAXone(*) 1 GM in NS 0.9% 50 ML* 50 ML IVPB SCH (12:00)
--- NOTE | 2018-11-24 12:46 | PN ---
Subjective Date of Service: 11/24/18 Interval History: Patient seen today, his BP soft 104/42. Had small amount of emesis this morning. increase urinary retentions. WBC worsened. I did express to patient that will need to escalate his antibiotics for possible aspirations. Also will place bates catheter for strict I/O's. Fluid started at 125 ml/hr and will reassess in the afternoon Family History: Unchanged from Admission Objective Active Medications: Acetaminophen (Tylenol Tab*) 650 mg PO Q6H PRN PRN Reason: FEVER/PAIN Last Admin: 11/23/18 22:00 Dose: 650 mg Aspirin (Aspirin Ec Tab*) 81 mg PO DAILY [facility] Last Admin: 11/24/18 09:36 Dose: 81 mg Benzonatate (Tessalon Cap*) 100 mg PO BID PRN PRN Reason: COUGH Cyclobenzaprine HCl (Flexeril Tab*) 10 mg PO Q8HR [facility] Last Admin: 11/24/18 06:09 Dose: 10 mg Guaifenesin (Mucinex*) 1,200 mg PO BID [facility] Last Admin: 11/24/18 09:36 Dose: 1,200 mg Heparin Sodium (Porcine) (Heparin Vial(*)) 5,000 units SUBCUT Q8HR [facility] Last Admin: 11/24/18 06:10 Dose: 5,000 units Sodium Chloride (Ns 0.9% 1000 Ml*) 1,000 mls @ 125 mls/hr IV PER RATE [facility] Last Admin: 11/24/18 11:26 Dose: 125 mls/hr Metoprolol Tartrate (Lopressor Tab*) 50 mg PO BID [facility] Last Admin: 11/24/18 09:37 Dose: Not Given Ondansetron HCl (Zofran Inj*) 4 mg IV Q6H PRN PRN Reason: NAUSEA Last Admin: 11/24/18 10:07 Dose: 4 mg Oxycodone/Acetaminophen (Percocet 5/325 Tab*) 2 tab PO Q6HR PRN PRN Reason: PAIN - SEVERE Oxycodone/Acetaminophen (Percocet 5/325 Tab*) 1 tab PO Q6H PRN PRN Reason: PAIN Pantoprazole Sodium (Protonix Tab (Nf)) 40 mg PO DAILY [facility] Last Admin: 11/24/18 09:36 Dose: 40 mg Pharmacy Consult (Zosyn Per Pharmacy*) 1 note FOLLOW UP .ZOSYN PER PHARMACY AN Sertraline HCl (Zoloft*) 50 mg PO DAILY AN Last Admin: 11/24/18 09:36 Dose: 50 mg Vital Signs - 8 hr 11/24/18 11/24/18 11/24/18 06:09 07:15 09:37 Temperature 98.2 F Pulse Rate 68 Respiratory 18 18 20 Rate Blood Pressure 104/42 (mmHg) O2 Sat by Pulse 98 Oximetry 11/24/18 11/24/18 10:00 11:31 Temperature 98.1 F Pulse Rate 77 Respiratory 20 18 Rate Blood Pressure 112/51 (mmHg) O2 Sat by Pulse 94 Oximetry Oxygen Devices in Use Now: Nasal Cannula Appearance: Awake, alert. no distress. Eyes: No Scleral Icterus, - - cachectic Ears/Nose/Mouth/Throat: NL Teeth, Lips, Gums, Mucous Membranes Moist Neck: NL Appearance and Movements; NL JVP, Trachea Midline Respiratory: Symmetrical Chest Expansion and Respiratory Effort, - - bibasilar crackles. Cardiovascular: NL Sounds; No Murmurs; No JVD, RRR, No Edema Abdominal: NL Sounds; No Tenderness; No Distention Neurological: Alert and Oriented x 3 - Nutrition: Malnutrition Diagnosis/Plan Malnutrition Assessment by Registered Dietitian: Malnutrition Assessment Clinical Characteristics Chronic,Severe Malnutrition Assessment: - Severe clavicle and temporal muscle wasting Criteria - < 75% estimated energy intake > 1 month ( evidenced by wt loss) - Underweight: BMI 16.0 Malnutrition Assessment: 1. Will send fruited faroese yogurt daily w/ meals Interventions as pt declined offer for an oral nutritional supplement - 140 kcals, 12 grams protein per serving Malnutrition Assessment: Goals 1. Recommend liberalizing diet to allow caffeine as able 2. Intake will improve to promote repletion of lean body mass and overall weight while maintaining hydration Result Diagrams: 11/24/18 05:54 11/24/18 05:54 Microbiology and Other Data: Microbiology 11/24/18 09:50 Gram Stain - Final Sputum 11/23/18 10:11 Aerobic Blood Culture - Preliminary Blood Venous No Growth Day 1 Anaerobic Blood Culture - Preliminary No Growth Day 1 11/23/18 10:06 Aerobic Blood Culture - Preliminary Blood Venous No Growth Day 1 Anaerobic Blood Culture - Preliminary No Growth Day 1 11/23/18 22:40 Legionella Urinary Antigen - Final Urine Negative Legionella Antigen Streptococcus pneumoniae Ag Screen - Final Negative S. pneumo Antigen 11/23/18 10:25 Influenza Types A,B Antigen - Final Nasopharyngeal Specimen received for Influenza A/B Molecular testing Assess/Plan/Problems-Billing Assessment: 68 year old male presented for pleuritic chest pain diagnosed with pneumonia suspect aspirations - Patient Problems (1) Pneumonia Current Visit: Yes Status: Acute Code(s): J18.9 - PNEUMONIA, UNSPECIFIED ORGANISM SNOMED Code(s): 168718367 Comment: - Will escalate his antibiotics to zosyn given increase in WBC and hypotension - Will call for speech pathology to assess for aspirations pneumonaie (2) Esophageal carcinoma Current Visit: No Status: Acute Code(s): C15.9 - MALIGNANT NEOPLASM OF ESOPHAGUS, UNSPECIFIED SNOMED Code(s): 033711288 Comment: - Esophageal dialations on CT scan - Nothing urgent but will need EGD once pneumonaie treated. can be arrange for outpatient (3) DVT prophylaxis Current Visit: No Status: Acute Code(s): FIM6803 - SNOMED Code(s): 786285162 Comment: - SQ heparin Q8hrs.
[2018-11-24] MEDS ORDERED: Lidocaine 2% JELLY* 10 ML JELLY TOPICAL ONE (15:17)
[2018-11-24] MEDS ORDERED: Lidocaine 2% JELLY* 6 ML JELLY TOPICAL ONE (15:17)
[2018-11-24] MEDS ORDERED: Morphine INJ* 2 MG/ML 1 ML SYRINGE (TWO MG - NEW SYRINGE VERSION) IV PRN (17:21)
[2018-11-24] MEDS: ZOSYN 3.375 GM Q8H per EXTENDED INFUSION IVPB SCH ×2 (17:54)
[2018-11-25] MEDS: ZOSYN 3.375 GM Q8H per EXTENDED INFUSION IVPB SCH ×6 (02:35→17:25)
[2018-11-25] MEDS: NS 0.9% 1000 ML* 1,000 ML IV SCH ×3 (04:30→20:16)
[2018-11-25] MEDS: Cyclobenzaprine TAB* 10 MG PO SCH ×3 (04:31→20:17)
[2018-11-25] MEDS: Heparin VIAL(*) 5000 UNITS/ML VIAL (FIVE THOUSAND) SUBCUT SCH ×3 (04:31→20:17)
[2018-11-25] MEDS: Aspirin EC TAB* 81 MG TAB.EC PO SCH ×2 (09:00→09:13)
[2018-11-25] MEDS: guaiFENesin ER TAB 600 MG PO SCH ×3 (09:00→20:17)
[2018-11-25] MEDS: Pantoprazole TAB * 40 MG TAB PO SCH ×2 (09:00→09:14)
[2018-11-25] MEDS: Metoprolol Tartrate TAB* 50 mg PO SCH ×2 (09:00→09:13)
[2018-11-25] MEDS: Sertraline* 25 MG TAB PO SCH ×2 (09:00→09:14)
[2018-11-25 09:25] LABS: ABS Basophils 0.1 10^3/ul (0-0.2); ABS Eosinophils 0.1 10^3/ul (0-0.6); ABS Lymphocytes 1.1 10^3/ul (1.0-4.8); ABS Monocytes 0.8 10^3/ul (0-0.8); ABS Neutrophils 12.8 10^3/ul (1.5-7.7); ABS Nucleated RBC 0 10^3/ul; Eosinophil % 0.8 %; Hematocrit 31 % (42-52); Lymphocyte % 7.5 %; Mean Corpuscular HGB Conc 33 g/dl (31-36); Mean Corpuscular Hemoglobin 33 pg (27-31); Mean Corpuscular Volume 101 fL (80-94); Nucleated Red Blood Cells % 0.1; Platelet Count 360 10^3/ul (150-450); Red Blood Count 3.06 10^6/ul (4.00-5.40); Red Cell Distribution Width 14 % (10.5-15); White Blood Count 14.9 10^3/ul (3.5-10.8)
[2018-11-25 09:29] LABS: BUN/Creatinine Ratio 20.5 (8-20); Calcium 9.2 mg/dL (8.6-10.3); EGFR Non-African American 86.1 (>60); Magnesium 1.6 mg/dL (1.9-2.7); Phosphorus 3.6 mg/dL (2.5-5.0); Potassium 3.9 mmol/L (3.5-5.0)
[2018-11-25] MEDS: Ondansetron INJ* 2 MG/ML VIAL IV PRN (09:51)
--- NOTE | 2018-11-25 15:25 | PN ---
Subjective Date of Service: 11/25/18 Interval History: Patient seen today, awake, alert. No distress. He continues to have difficulty keeping food. Increase regurgitations. Despite zofran. He is on Antibiotics with appropriate and adequate coverage. no fever. WBC elevated will continue to trend but his antibiotics has been escalated to Zosyn. Given his ongoing regurgitations and difficulty with keeping food. will call for GI consult and nutrition consult. He may benefit from EGD given his CT scan finding to assess for esophageal mass given his history of esophageal cancer Family History: Unchanged from Admission Social History: Unchanged from Admission Objective Active Medications: Acetaminophen (Tylenol Tab*) 650 mg PO Q6H PRN PRN Reason: FEVER/PAIN Last Admin: 11/23/18 22:00 Dose: 650 mg Aspirin (Aspirin Ec Tab*) 81 mg PO DAILY [facility] Last Admin: 11/25/18 09:13 Dose: 81 mg Benzonatate (Tessalon Cap*) 100 mg PO BID PRN PRN Reason: COUGH Cyclobenzaprine HCl (Flexeril Tab*) 10 mg PO Q8HR [facility] Last Admin: 11/25/18 13:00 Dose: Not Given Guaifenesin (Mucinex*) 1,200 mg PO BID [facility] Last Admin: 11/25/18 09:13 Dose: 1,200 mg Heparin Sodium (Porcine) (Heparin Vial(*)) 5,000 units SUBCUT Q8HR [facility] Last Admin: 11/25/18 12:59 Dose: 5,000 units Sodium Chloride (Ns 0.9% 1000 Ml*) 1,000 mls @ 125 mls/hr IV PER RATE [facility] Last Admin: 11/25/18 12:58 Dose: 125 mls/hr Piperacillin Sod/Tazobactam (Sod 3.375 gm/ Sodium Chloride) 100 mls @ 25 mls/ hr IVPB Q8H [facility] Last Admin: 11/25/18 09:09 Dose: 25 mls/hr Metoprolol Tartrate (Lopressor Tab*) 50 mg PO BID [facility] Last Admin: 11/25/18 09:13 Dose: 50 mg Morphine Sulfate (Morphine Inj ((Syringe))*) 2 mg IV Q2H PRN PRN Reason: PAIN Last Admin: 11/24/18 17:52 Dose: 2 mg Ondansetron HCl (Zofran Inj*) 4 mg IV Q6H PRN PRN Reason: NAUSEA Last Admin: 11/25/18 09:51 Dose: 4 mg Oxycodone/Acetaminophen (Percocet 5/325 Tab*) 2 tab PO Q6HR PRN PRN Reason: PAIN - SEVERE Oxycodone/Acetaminophen (Percocet 5/325 Tab*) 1 tab PO Q6H PRN PRN Reason: PAIN Pantoprazole Sodium (Protonix Tab (Nf)) 40 mg PO DAILY [facility] Last Admin: 11/25/18 09:14 Dose: 40 mg Pharmacy Consult (Zosyn Per Pharmacy*) 1 note FOLLOW UP .ZOSYN PER PHARMACY [facility] Sertraline HCl (Zoloft*) 50 mg PO DAILY [facility] Last Admin: 11/25/18 09:14 Dose: 50 mg Vital Signs - 8 hr 11/25/18 11/25/18 11/25/18 07:34 08:00 11:42 Temperature 97.3 F 98.1 F Pulse Rate 76 70 Respiratory 18 17 16 Rate Blood Pressure 121/49 118/50 (mmHg) O2 Sat by Pulse 96 97 Oximetry Oxygen Devices in Use Now: None Appearance: awake, Alert. no acute distress Eyes: No Scleral Icterus, - - EOMI Ears/Nose/Mouth/Throat: NL Teeth, Lips, Gums, Clear Oropharnyx Neck: NL Appearance and Movements; NL JVP, Trachea Midline Respiratory: Symmetrical Chest Expansion and Respiratory Effort, - - diminished breath sound left worse than right. transmitted upper airway breath sounds Cardiovascular: NL Sounds; No Murmurs; No JVD, No Edema Abdominal: NL Sounds; No Tenderness; No Distention Extremities: No Edema - Nutrition: Malnutrition Diagnosis/Plan Malnutrition Assessment by Registered Dietitian: Malnutrition Assessment Clinical Characteristics Chronic,Severe Malnutrition Assessment: - Severe clavicle and temporal muscle wasting Criteria - < 75% estimated energy intake > 1 month ( evidenced by wt loss) - Underweight: BMI 16.0 Malnutrition Assessment: 1. Will send fruited slovak yogurt daily w/ meals Interventions as pt declined offer for an oral nutritional supplement - 140 kcals, 12 grams protein per serving Malnutrition Assessment: Goals 1. Recommend liberalizing diet to allow caffeine as able 2. Intake will improve to promote repletion of lean body mass and overall weight while maintaining hydration Result Diagrams: 11/25/18 08:58 11/25/18 08:58 Microbiology and Other Data: Microbiology 11/24/18 09:50 Gram Stain - Final Sputum 11/23/18 10:11 Aerobic Blood Culture - Preliminary Blood Venous No Growth Day 1 Anaerobic Blood Culture - Preliminary No Growth Day 1 11/23/18 10:06 Aerobic Blood Culture - Preliminary Blood Venous No Growth Day 1 Anaerobic Blood Culture - Preliminary No Growth Day 1 11/23/18 22:40 Legionella Urinary Antigen - Final Urine Negative Legionella Antigen Streptococcus pneumoniae Ag Screen - Final Negative S. pneumo Antigen 11/23/18 10:25 Influenza Types A,B Antigen - Final Nasopharyngeal Specimen received for Influenza A/B Molecular testing Assess/Plan/Problems-Billing Assessment: 68 year old male history of esophageal cancer diagnosed 2017 s/p CT presented for pleuritic chest pain diagnosed with pneumonia suspect aspirations - Patient Problems (1) Pneumonia Current Visit: Yes Status: Acute Code(s): J18.9 - PNEUMONIA, UNSPECIFIED ORGANISM SNOMED Code(s): 586096459 Comment: - I did escalate his antibiotics to zosyn given increase in WBC and hypotension - I did call for speech pathology to assess for aspirations pneumonaie, also nutrition consult as I do not think he is meeting daily nutritional needs - given his dialated esophageous and history of esophageal cancer, I did call for GI consult left a message to Dr. Pruitt (2) Esophageal carcinoma Current Visit: No Status: Acute Code(s): C15.9 - MALIGNANT NEOPLASM OF ESOPHAGUS, UNSPECIFIED SNOMED Code(s): 564516418 Comment: - Esophageal dialations on CT scan - Nothing urgent but will need EGD given his inability to maintain oral intake and CT finding I did call for GI consult left a message to Dr. Pruitt (3) DVT prophylaxis Current Visit: No Status: Acute Code(s): TQJ4369 - SNOMED Code(s): 083953703 Comment: - SQ heparin Q8hrs.
[2018-11-25] MEDS ORDERED: Magnesium Oxide TAB* 400 MG PO SCH (15:32)
[2018-11-25] MEDS ORDERED: Magnesium Sulfate 2 GM IV* 2 GM/50 ML BAG IVPB ONE (17:57)
[2018-11-25] MEDS: Metoprolol Tartrate IV* 1 MG/ML 5 ML VIAL IV SCH (20:17)
--- NOTE | 2018-11-25 20:34 | CONS ---
CONSULTATION REPORT: DATE OF CONSULT: 11/25/18 REQUESTING PHYSICIAN: Spike Lima MD REASON FOR CONSULT: Dysphagia, history of esophageal cancer. 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 This was diagnosed by outpatient endoscopy in April 2017. It was moder ately differentiated. He had a further EUS by Dr. Mcgee at [facility] which revealed it to be T3N0. He then completed chemotherapy in July 2018 and radiation therapy was completed as w ell. The patient did quite well for a while, but then over the last week and a half he states he has developed dysphagia with frequently spitting up food. He also admits to weight loss at this point a s well. He then developed increasing shortness of breath with left-sided chest pain. He denied any caroline fever or chills. He was admitted with what was found to be pneumonia and treated with antibiot ics. He had a CT that was done that showed dilation at the distal esophagus. He admits to dysphagia . Denies any odynophagia. He denies any melena or hematochezia. He denies any abdominal pain. No diarrhea or constipation. He admits to some nausea, occasional emesis again over the last few weeks. Prior to this, he seemed to be in decent state of health. The remainder of the 14-point review of systems is grossly negative. PAST MEDICAL HISTORY: 1. Squamous cell carcinoma of the esophagus. 2. Appendectomy. 3. Left knee arthroplasty. 4. Myocardial infarction during chemotherapy. 5. History of alcoholism. 6. Hypertension. 7. GERD. 8. History of prior tobacco abuse. MEDICATIONS: Home medications include: 1. Sertraline. 2. Aspirin. 3. Prilosec. 4. Metoprolol. 5. Cyclobenzaprine. 6. Percocet. ALLERGIES: No known drug allergies. FAMILY HISTORY: Sister with breast cancer. No history of GI malignancy or IBD. SOCIAL HISTORY: Prior history of alcohol abuse. Positive tobacco. Quit alcohol at the time of his esophageal cancer diagnosis. REVIEW OF SYSTEMS: Remainder of the 14-point review of systems is grossly negative. PHYSICAL EXAM: Vital Signs: Blood pressure is 138/63, pulse is 77, respiratory rate is 20. He is 9 8% on room air. His temperature is 97.9. In general, he is alert and oriented x3, in no acute distr ess. He is chronically ill appearing. HEENT: Atraumatic, normocephalic. Pupils are equal, round, r eactive to light. Extraocular movements are intact. Conjunctivae are pink. Sclerae anicteric. Cardi ovascular: Regular rate and rhythm. S1, S2. Respiratory: Harsh rales at the base that mostly billy r with coughing. Abdomen: Soft, nontender, nondistended. Bowel sounds positive. Extremities: No c lubbing. No cyanosis. No edema. DIAGNOSTIC STUDIES/LAB DATA: Hemoglobin 10, WBC count 14.9, platelet count 360,000. INR 1.05. Crea tinine 0.88. BUN is 18. AST is 17, ALT is 11, alkaline phosphatase 71. CRP is 16. BNP is 126. He had a CTA of the chest that was done on 11/23/18 which showed extensive left upper and left lower in filtrates, small left pleural effusion, dilation of the esophagus which had progressed from a prior e xam. There appears to be narrowing of the distal esophagus and multiple dorsal and upper lumbar vert ebral body compression fractures. ASSESSMENT AND PLAN: This is a 68-year-old male with history of squamous cell esophageal cancer, now presents with dysphagia, weight loss, and abnormal CT. 1. Dysphagia, weight loss. Given his prior diagnosis with plan on upper endoscopy, in addition it i s concerning if his pneumonia was caused by aspiration or if it was community acquired. We will plan on upper endoscopy to better assess his esophageal tract and the abdomen, albeit that was seen on CT . Discussed the risks, benefits, and alternatives to the procedure and the patient agrees to proceed with upper endoscopy. 2. Abnormal CT as above. 3. Pneumonia per primary service. Clinically improving, saturating well. [id number]/[facility] #: [id number]
[2018-11-26] MEDS: ZOSYN 3.375 GM Q8H per EXTENDED INFUSION IVPB SCH ×4 (02:14→08:31)
[2018-11-26] MEDS: Metoprolol Tartrate IV* 1 MG/ML 5 ML VIAL IV SCH ×3 (02:14→14:07)
[2018-11-26] MEDS: Cyclobenzaprine TAB* 10 MG PO SCH ×2 (05:18→14:07)
[2018-11-26] MEDS: Heparin VIAL(*) 5000 UNITS/ML VIAL (FIVE THOUSAND) SUBCUT SCH ×3 (05:25→16:34)
[2018-11-26] MEDS: NS 0.9% 1000 ML* 1,000 ML IV SCH (08:31)
[2018-11-26] MEDS: guaiFENesin ER TAB 600 MG PO SCH (08:37)
[2018-11-26] MEDS: Aspirin EC TAB* 81 MG TAB.EC PO SCH (08:37)
[2018-11-26] MEDS: Sertraline* 25 MG TAB PO SCH (08:37)
[2018-11-26] MEDS ORDERED: Pantoprazole IV* 40 MG IV SCH (09:00)
[2018-11-26] MEDS ORDERED: fentaNYL* 50 MCG/ML 2 ML VIAL (100 MCG VIAL) ONE (09:54)
[2018-11-26] MEDS ORDERED: Midazolam* 1 MG/ML 10 ML VIAL (10 MG) ONE (09:54)
--- NOTE | 2018-11-26 12:59 | PRO ---
ESOPHAGOGASTRODUODENOSCOPY REPORT: DATE OF PROCEDURE: 11/26/18 INDICATION FOR PROCEDURE: Dysphagia. PROCEDURE PERFORMED: Complete esophagogastroduodenoscopy with Pavon Net and food impaction removal an d pill debris removal. MEDICATIONS GIVEN: Include: 1. 9 mg IV midazolam. 2. 50 mcg IV fentanyl. DESCRIPTION OF PROCEDURE: After the EGD procedure including the risks, benefits, and alternatives wi th the risks not limited to perforation, surgery, missed lesions, and/or were explained to the patient, written informed consent was obtained. IV medication was given and a bite-block was placed between the teeth. The adult Olympus gastroscope was inserted into the oropharynx. He had a very tig ht UES, but I was able to intubate the esophagus successfully with the adult gastroscope. The scope was then advanced to roughly 30 cm where the esophagus was full of pill debris and some retained food . There was a slight layering of liquid as well. I suctioned all this out immediately. I then used the Pavon Net to fully extract all pill and food debris with good effect. This took in excess of 45 minutes. At the distal end of the esophagus at 35 cm, there was a very narrow fibrotic stricture not ed. No mass really around this area. This appeared to be more fibrosis than anything. I initially attempted to pass the adult scope unsuccessfully. I then used a 5.5-mm XP pediatric scope and was un able to pass beyond this. I was not able to get a great look beyond this area and blind dilation was not attempted. The scope was then removed from the patient. He tolerated the procedure well. He r eturned to the recovery room in stable condition. IMPRESSION: 1. Complete esophagogastroduodenoscopy. 2. Pavon Net removal of food and pill debris successfully. 3. Esophageal stricture distal esophagus 35 cm, roughly a 3 to 4 mm stricture, unable to pass the pe diatric 5.5-mm XP scope. This appears more fibrotic. RECOMMENDATIONS: Unsafe to do blind dilation here without cardiothoracic backup given the fibrotic n ature and history of squamous cell carcinoma. The stricture does appear to be more fibrosis than a n odular mass. We would recommend transfer to tertiary care center where a wire guided or Savary dilat ion could be performed safely with appropriate backup. I discussed the case with the patient's hospi talist, Dr. Lima and he will arrange for transfer to tertiary care center with these considerat ions in mind. [id number]/[facility] #: [id number]
[2018-11-26 15:28] VITALS: BP 129/56
--- NOTE | 2018-11-26 16:05 | PN ---
Subjective Date of Service: 11/26/18 Interval History: Patient seen today post EGD done early this afternoon. Discussed the case with GI and EGD result revealed severe distal esophagus obstruction and large amount of food residue and medications at the distal esophagus. Dr. Edmond Parker expressed that he could not pass the EGD scope through even with the pediatric size. He was able to suction most of the food and medications and recommended transfer to GI facility with thoracic back for esophageal dilatation. Patient was seen on the floor, he is slightly confused and disoriented post anesthesia but vitals stable. I relayed the information to his sister and daughter and they are in agreement. Transfer center called for transfer arrangement. Currently he was accepted by Dr. Khan in [facility] Family History: Unchanged from Admission Social History: Unchanged from Admission Objective Active Medications: Aspirin (Aspirin 81 Mg Chew Tab*) 81 mg PO DAILY [facility] Heparin Sodium (Porcine) (Heparin Vial(*)) 5,000 units SUBCUT Q8HR [facility] Last Admin: 11/26/18 05:28 Dose: Not Given Piperacillin Sod/Tazobactam (Sod 3.375 gm/ Sodium Chloride) 100 mls @ 25 mls/ hr IVPB Q8H [facility] Last Admin: 11/26/18 08:31 Dose: 25 mls/hr Sodium Chloride (Ns 0.9% 1000 Ml*) 1,000 mls @ 80 mls/hr IV PER RATE [facility] Last Admin: 11/26/18 08:31 Dose: 80 mls/hr Metoprolol Tartrate (Lopressor Iv*) 5 mg IV Q6H [facility] Last Admin: 11/26/18 14:07 Dose: Not Given Morphine Sulfate (Morphine Inj ((Syringe))*) 2 mg IV Q2H PRN PRN Reason: PAIN Last Admin: 11/24/18 17:52 Dose: 2 mg Ondansetron HCl (Zofran Inj*) 4 mg IV Q6H PRN PRN Reason: NAUSEA Last Admin: 11/25/18 09:51 Dose: 4 mg Pantoprazole Sodium (Protonix Iv*) 40 mg IV DAILY [facility] Last Admin: 11/26/18 08:31 Dose: 40 mg Pharmacy Consult (Zosyn Per Pharmacy*) 1 note FOLLOW UP .ZOSYN PER PHARMACY [facility] Sertraline HCl (Zoloft*) 50 mg PO DAILY [facility] Last Admin: 11/26/18 08:37 Dose: Not Given Vital Signs - 8 hr 11/26/18 11/26/18 11/26/18 08:00 13:46 15:02 Temperature 97.3 F 97.0 F Pulse Rate 71 77 Respiratory 18 12 18 Rate Blood Pressure 114/47 129/56 (mmHg) O2 Sat by Pulse 94 99 Oximetry Oxygen Devices in Use Now: None Appearance: Awake, disoriented. but respond appropriately to simple command Eyes: No Scleral Icterus, - - EOMI Ears/Nose/Mouth/Throat: Mucous Membranes Moist Neck: NL Appearance and Movements; NL JVP, Trachea Midline Respiratory: Symmetrical Chest Expansion and Respiratory Effort, - - diminished at bases worse on the left Cardiovascular: NL Sounds; No Murmurs; No JVD, RRR Abdominal: NL Sounds; No Tenderness; No Distention Extremities: No Edema Skin: No Rash or Ulcers Neurological: Alert and Oriented x 3 - Nutrition: Malnutrition Diagnosis/Plan Malnutrition Assessment by Registered Dietitian: Malnutrition Assessment Clinical Characteristics Chronic,Severe Malnutrition Assessment: - Severe clavicle and temporal muscle wasting Criteria - < 75% estimated energy intake > 1 month ( evidenced by wt loss) - Underweight: BMI 16.0 Malnutrition Assessment: 1. Will send fruited frisian yogurt daily w/ meals Interventions as pt declined offer for an oral nutritional supplement - 140 kcals, 12 grams protein per serving Malnutrition Assessment: Goals 1. Recommend liberalizing diet to allow caffeine as able 2. Intake will improve to promote repletion of lean body mass and overall weight while maintaining hydration Result Diagrams: 11/25/18 08:58 11/25/18 08:58 Microbiology and Other Data: Microbiology 11/24/18 09:50 Gram Stain - Final Sputum 11/23/18 10:11 Aerobic Blood Culture - Preliminary Blood Venous No Growth Day 1 Anaerobic Blood Culture - Preliminary No Growth Day 1 11/23/18 10:06 Aerobic Blood Culture - Preliminary Blood Venous No Growth Day 1 Anaerobic Blood Culture - Preliminary No Growth Day 1 11/23/18 22:40 Legionella Urinary Antigen - Final Urine Negative Legionella Antigen Streptococcus pneumoniae Ag Screen - Final Negative S. pneumo Antigen 11/23/18 10:25 Influenza Types A,B Antigen - Final Nasopharyngeal Specimen received for Influenza A/B Molecular testing Assess/Plan/Problems-Billing Assessment: 68 year old male history of esophageal cancer diagnosed 2017 s/p [facility] presented for pleuritic chest pain diagnosed with pneumonia suspect aspirations - Patient Problems (1) Pneumonia Current Visit: Yes Status: Acute Code(s): J18.9 - PNEUMONIA, UNSPECIFIED ORGANISM SNOMED Code(s): 763682328 Comment: - I did escalate his antibiotics to zosyn given increase in WBC and hypotension - I did call for speech pathology to assess for aspirations pneumonaie, also nutrition consult as I do not think he is meeting daily nutritional needs - given his dialated esophageous and history of esophageal cancer, I did call for GI consult left a message to Dr. Pruitt - He went for EGD today 11/26/18 which showed severe esophageal obstructions and large amount of food and medications in distal esophageous. Will transfer him to [facility] for GI service with thoracic surgery available. - Will keep him NPO and IVF and IV abx (2) Esophageal carcinoma Current Visit: No Status: Acute Code(s): C15.9 - MALIGNANT NEOPLASM OF ESOPHAGUS, UNSPECIFIED SNOMED Code(s): 424131796 Comment: - Esophageal dialations on CT scan - Nothing urgent but will need EGD given his inability to maintain oral intake and CT finding I did call for GI consult left a message to Dr. Pruitt - He went for EGD today 11/26/18 which showed severe esophageal obstructions and large amount of food and medications in distal esophageous. Will transfer him to [facility] for GI service with thoracic surgery available. - Will keep him NPO and IVF and IV abx (3) Hypertension Current Visit: Yes Status: Acute Code(s): I10 - ESSENTIAL (PRIMARY) HYPERTENSION SNOMED Code(s): 99474791 Comment: - Changed his lopressor to IV now that he is NPO (4) Hypokalemia Current Visit: No Status: Acute Code(s): E87.6 - HYPOKALEMIA SNOMED Code(s ): 16533797 Comment: - ON IVF and PRN K+ runs (5) Hypomagnesemia Current Visit: No Status: Acute Code(s): E83.42 - HYPOMAGNESEMIA SNOMED Code(s): 940179613 Comment: - PRN Mag run (6) DVT prophylaxis Current Visit: No Status: Acute Code(s): VOD8898 - SNOMED Code(s): 151720255 Comment: - SQ heparin Q8hrs.
--- NOTE | 2018-11-26 18:03 | DS ---
CC: Dr. Chanel; Dr. Keith Pruitt; Dr. Xiomy Elizondo DISCHARGE/TRANSFER SUMMARY: DATE OF ADMISSION: 11/23/18 DATE OF TRANSFER: 11/26/18 FINAL DISCHARGE DIAGNOSES: 1. Esophageal obstruction, distal, with large amount of food and medication residue. 2. History of esophageal cancer, status post chemotherapy, diagnosed on 04/28/17, completed carbopla tin and Taxol chemotherapy in July 2018. 3. Aspiration pneumonia. 4. Hypertension. 5. Gastroesophageal reflux disease. 6. History of tobacco and alcohol abuse. 7. Left knee arthroplasty. 8. History of appendectomy. 9. History of myocardial infarction during his chemotherapy. HOSPITAL COURSE: The patient presented to our facility on 11/23/18 for pleuritic chest pain and shor tness of breath for 2 days prior to presentation associated with back pain, unable to take a deep lashay ath without significant pain and chest pain. The patient also reported significant nausea and reflux for the past few days, progressively got worse and finally after 2 days with those above symptoms, he reported to the emergency room. In our emergency room, the patient had a CAT scan done, which showe d ground-glass opacity in the left upper lobe. White count of 12,000; temperature 99.7, hypoxia with saturation of 90% on room air. He was placed on 2 L and was admitted to the medical service. The gayla albert was seen and evaluated by me the following day and he was still slightly hypoxic on 11/24/18. His antibiotics were escalated from Rocephin and Zithromax to Zosyn. He was made n.p.o. except for m eds, placed on IV fluid resuscitation. Barr catheter was placed. Initially, it was difficult to pl meagan medically, we did request the assistance of Urology, who placed the catheter via coude and was ma intained since. He was maintained on antibiotics and IV fluids. After 24 hours, I reattempted to fee d the patient, unfortunately he could not tolerate any food and he regurgitated and had 1 episode of emesis, hence I made him n.p.o. again and I did discuss with GI, who kindly came in and saw the patie nt and he was consulted by Dr. Keith Pruitt. He underwent EGD procedure today on 11/26/18 and it rev ealed large amount of food and pill debris, were removed successfully via Pavon Net and there was sign ificant obstruction and severe esophageal stricture at 35 cm where he was unable to pass the pediatri c scope and recommended to be transferred to a tertiary center for GI service with possibly performin g wire guided Savary dilation with appropriate thoracic backup service. I discussed the case with th e family who are in agreement. Discussed the case with the transfer center and he currently got acce pted at [facility] with , as accepting physician. DISCHARGE ASSESSMENT AND PLAN: 1. Esophageal stricture, possibly due to esophageal cancer and fibrosis, required transfer. He will be placed on n.p.o., IV fluids, PPI and transferred to GI service with possible wire guided Savary d ilation with backup thoracic service. 2. For his aspiration pneumonia, we will continue his Zosyn. NPO. Status post swallow evaluation, which they did not deem him safe for oral intake until his obstruction is relieved. 3. Urinary retention secondary to bladder neck most likely. I was unable to place a Barr catheter. It was placed by the urologist, who recommended to leave it at least for 4 to 5 days. Once able to take p.o., the patient to be placed on Flomax. Leave the Barr catheter and consult with Urology whe ther or not it will be successfully removed. 4. For his hypertension, I changed his metoprolol to IV. 5. Electrolyte disturbances. He is on electrolytes p.r.n. as well as IV fluids. TRANSFER MEDICATIONS: For now, he will be transferred on: 1. Aspirin 81 chewable. 2. Heparin 5000 q.8. 3. Lopressor IV q.6 hours. 4. Morphine 2 mg q.2 p.r.n. 5. Zofran 4 mg q.6 p.r.n. 6. Protonix 40 mg IV daily. 7. Zosyn 3.375 IV q.8. 8. Zoloft 50, if he tolerates crushed. 9. IV fluids at 80 cc an hour. [id number]/[facility] #: [id number]
[2018-11-27] MEDS ORDERED: Aspirin 81 mg CHEW TAB* 81 MG TAB.CHEW PO SCH (09:00)
== END 2018-11-26 16:15 | disposition short-term general hospital (02) | DRG 177 ==
LOC: ED 09:28 → MED 12:18 → OBSVTOIN 11-24 11:45 → MED 11-26 12:57
PROVIDERS: ADMIT Internal Medicine; ATTEND Internal Medicine
PROC: 0T9B70Z Drainage of Bladder with Drainage Device, Via Natural or Artificial Opening (ICD-10-PCS; principal; 2018-11-24)
PROC: 0DC58ZZ Extirpation of Matter from Esophagus, Via Natural or Artificial Opening Endoscopic (ICD-10-PCS; 2018-11-24)
DX: J69.0 Pneumonitis due to inhalation of food and vomit (principal); E43 Unspecified severe protein-calorie malnutrition; Z68.1 Body mass index [BMI] 19.9 or less, adult; C15.9 Malignant neoplasm of esophagus, unspecified; M48.54XA Collapsed vertebra, not elsewhere classified, thoracic region, initial encounter for fracture; E11.9 Type 2 diabetes mellitus without complications; K22.2 Esophageal obstruction; I10 Essential (primary) hypertension; J44.9 Chronic obstructive pulmonary disease, unspecified; K21.9 Gastro-esophageal reflux disease without esophagitis; M19.90 Unspecified osteoarthritis, unspecified site; M85.80 Other specified disorders of bone density and structure, unspecified site; F32.9 Major depressive disorder, single episode, unspecified; R13.10 Dysphagia, unspecified; I25.2 Old myocardial infarction; I44.7 Left bundle-branch block, unspecified; G89.29 Other chronic pain; N32.89 Other specified disorders of bladder; R33.9 Retention of urine, unspecified; E83.42 Hypomagnesemia; Z96.652 Presence of left artificial knee joint; R09.02 Hypoxemia; Z79.82 Long term (current) use of aspirin; Z87.891 Personal history of nicotine dependence; Z91.041 Radiographic dye allergy status; Z87.01 Personal history of pneumonia (recurrent); Z92.21 Personal history of antineoplastic chemotherapy; Z92.3 Personal history of irradiation; Z80.49 Family history of malignant neoplasm of other genital organs; Z80.3 Family history of malignant neoplasm of breast; Z80.1 Family history of malignant neoplasm of trachea, bronchus and lung; Z82.49 Family history of ischemic heart disease and other diseases of the circulatory system; E87.6 Hypokalemia
CPT/HCPCS: 36415; 71046; 71275; 80048; 80053; 81003; 82553; 82607; 82746; 83605; 83735; 83880; 84100; 84443; 84484; 85025; 85610; 85730; 86140; 87040; 87205; 87899; 93005; 99156; 99157; 99283; A9270-GY; J0696; J1644; J2250; J2270; J2405; J2543; J3010; J3475; J3490; Q9967

== ENCOUNTER 2018-12-17 13:16 | Emergency (ER) | payer MEDICARE ==
[2018-12-17] MEDS ORDERED: cefTRIAXone(*) 1 GM in NS 0.9% 50 ML* 50 ML IVPB ONE (13:23)
--- NOTE | 2018-12-17 13:25 | ED ---
GI/ HPI - HPI Summary HPI Summary: Patient is a 68 y/o M presenting to ED via ambulance from [facility] for left sided abdominal pain and possible infection at site of PEG tube. Abdominal pain onset two days ago, which patient rates 2/10. Area around PEG tube is reported to be red, swollen. PEG tube was placed a few weeks ago, patient is unsure why. Patient believes that he is not on any antibiotics. EMS reports no N/V, no fever. He is DNR, DNI. On triage, nothing is noted to aggravate/alleviate Sx. Home medications and allergies are reviewed. - History of Current Complaint Stated Complaint: PEG TUBE INFECTION Hx Obtained From: Patient Onset/Duration: Started Days Ago - 2, Still Present Timing: Constant, Lasting Days - 2 Severity: Mild - 2/10 Current Severity: Mild - 2/10 Associated Signs and Symptoms: Positive: Abdominal Pain, Other: - erythema and swelling at PEG tube site. Negative: Nausea, Vomiting, Fever Aggravating Factor(s): Nothing Alleviating Factor(s): Nothing - Additional Pertinent History Primary Care Physician: OSWALD - Allergy/Home Medications Allergies/Adverse Reactions: Allergies Allergy/AdvReac Type Severity Reaction Status Date / Time red dye Allergy Mild Rash Verified 06/14/18 09:52 Home Medications: Home Medications Cyanocobalamin (Vitamin B-12) [Vitamin B-12] 1,000 mcg PO DAILY 12/17/18 [ History Confirmed 12/17/18] Doxazosin Mesylate 0.5 mg PO BEDTIME 12/17/18 [History Confirmed 12/17/18] Famotidine [Pepcid] 20 mg PO BID 12/17/18 [History Confirmed 12/17/18] Ipratropium 0.5MG/2.5ML NEB* [Atrovent 0.5 MG NEB.MARTINE*] 0.5 mg INH Q4H PRN 12/17 [History Confirmed 12/17/18] Ketoconazole 2 % CREAM (NF) [Nizoral 2% CREAM (NF)] 1 applic TOPICAL SEE INSTRUCTIONS 12/17/18 [History Confirmed 12/17/18] Morphine Sulfate 5 mg PO Q2HR PRN 12/17/18 [History Confirmed 12/17/18] Morphine Sulfate 5 mg PO TID 12/17/18 [History Confirmed 12/17/18] Tamsulosin CAP* [Flomax CAP*] 0.4 mg PO BEDTIME 12/17/18 [History Confirmed 07/27] Tolnaftate 1% CREAM* [Tinactin 1% CREAM*] 1 applic TOPICAL DAILY 12/17/18 [ History Confirmed 12/17/18] PMH/Surg Hx/FS Hx/Imm Hx Endocrine/Hematology History: Denies: Hx Anticoagulant Therapy - Aspirin, Hx Diabetes Cardiovascular History: Reports: Hx Hypertension Denies: Hx Angina, Hx Coronary Artery Disease, Hx Hypercholesterolemia, Hx Myocardial Infarction, Hx Peripheral Vascular Disease, Hx Valvular Heart Disease , Other Cardiovascular Problems/Disorders Respiratory History: Reports: Hx Chronic Obstructive Pulmonary Disease (COPD) - mild dx by PCP, Hx Pleural Effusion, Other Respiratory Problems/Disorders - PNEUMONIA Denies: Hx Pneumonia GI History: Reports: Hx Gastroesophageal Reflux Disease, Other GI Disorders - esophageal cx History: Denies: Hx Dialysis, Hx Renal Disease Musculoskeletal History: Reports: Hx Arthritis, Hx Back Problems - back pain, Other Musculoskeletal History - left knee arthroscopy in the , osteopenia Denies: Hx Osteoporosis Sensory History: Reports: Hx Contacts or Glasses Denies: Hx Hearing Aid Opthamlomology History: Reports: Hx Contacts or Glasses Neurological History: Denies: Hx Dementia, Hx Headaches, Hx Seizures, Hx Transient Ischemic Attacks (TIA) Psychiatric History: Reports: Hx Depression, Hx Substance Abuse - ETOH Denies: Hx Anxiety - Cancer History Cancer Type, Location and Year: ESOPHAGEAL CA Hx Chemotherapy: Yes Hx Radiation Therapy: Yes Hx Palliative Cancer Treatment: No - Surgical History Surgery Procedure, Year, and Place: APPENDECTOMY, L knee arthroscopy in Hx Anesthesia Reactions: No - Immunization History Date of Tetanus Vaccine: unk Date of Influenza Vaccine: unk - Family History Known Family History: Negative: Cardiac Disease, Hypertension, Diabetes - Social History Alcohol Use: Weekly Alcohol Amount: daily to every other day 3-6 beers Substance Use Type: Reports: None Hx Tobacco Use: Yes Smoking Status (MU): Former Smoker Type: Cigarettes Amount Used/How Often: 1/2 PPD Length of Time of Smoking/Using Tobacco: 50 years Have You Smoked in the Last Year: Yes Review of Systems Negative: Fever Positive: Abdominal Pain. Negative: Vomiting, Nausea Skin: Other - POSITIVE - ERYTHEMA, SWELLING AROUND PEG TUBE AREA All Other Systems Reviewed And Are Negative: Yes Physical Exam - Summary Physical Exam Summary: VITAL SIGNS: Reviewed. GENERAL: Patient is a well-developed and nourished male who is lying comfortable in the stretcher. Patient is not in any acute respiratory distress. HEAD AND FACE: Normocephalic and atraumatic. EYES: PERRLA, EOMI x 2, No injected conjunctiva. EARS: Hearing grossly intact. Ear canals and tympanic membranes are WNL. MOUTH: Oropharynx within normal limits. NECK: Supple, trachea is midline, no adenopathy, no JVD. CHEST: Symmetric, no tenderness at palpation LUNGS: Clear to auscultation bilaterally. No wheezing or crackles. CVS: RRR, S1 and S2 present, no murmurs or gallops appreciated. ABDOMEN: PEG tube in place, erythema and tenderness upon palpation at site. Soft. No signs of distention. Positive bowel sounds. No rebound no guarding, and no masses palpated. No abdominal bruit or pulsations. EXTREMITIES: FROM in all major joints, no edema, no cyanosis or clubbing. NEURO: Alert and oriented x 3. No acute neurological deficits. Speech is normal. SKIN: Dry and warm Triage Information Reviewed: Yes Vital Signs On Initial Exam: Initial Vitals Temp Pulse Resp BP Pulse Ox 99.1 F 84 20 150/84 96 12/17/18 13:19 12/17/18 13:19 12/17/18 13:19 12/17/18 13:19 12/17/18 13:19 Vital Signs Reviewed: Yes Diagnostics - Laboratory Result Diagrams: 12/17/18 13:29 12/17/18 13:29 Lab Statement: Any lab studies that have been ordered have been reviewed, and results considered in the medical decision making process. Re-Evaluation - Re-Evaluation First Eval Re-Evaluation Time: 13:27 Comment: Attempted to call Dr. Car, PCP of patient. However, she is out of town; apperently, [facility] sent patient to ED. Attempts to contact Hernandez FARRIS will be made. Second Eval Re-Evaluation Time: 13:35 Comment: Hernandez FARRIS was contacted, states that he did not see patient, nurse called stating that patient had an area of bad cellulitis around PEG tube , patient was sent to ED. Third Eval Re-Evaluation Time: 16:43 Comment: I discussed all the findings and test results with the patient. Patient was instructed to return to the emergency room immediately if any of the symptoms return or worsens. Plan of care was discussed with the patient and understands and agrees. All questions were answered at patient satisfaction. There were no further complaints or concerns. Lung exam before discharge: CTA B/ L. Good air exchange. No wheezing or crackles heard. CVS: S1 and S2 present. No murmurs appreciated. Patient is alert and oriented x 3. Patient is hemodynamically stable. Patient will be discharged home with follow up PCP in the next 2-3 days GIGU Course/Dx - Course Assessment/Plan: Patient is a 68 y/o M presenting to ED via ambulance from [facility] for left sided abdominal pain and possible infection at site of PEG tube. Abdominal pain onset two days ago, which patient rates 2/10. Area around PEG tube is reported to be red, swollen. PEG tube was placed a few weeks ago, patient is unsure why. Patient believes that he is not on any antibiotics. EMS reports no N/V, no fever. He is DNR, DNI. Blood work without any significant abnormality except for WBC of 11.6, slight anemia with hemoglobin 8.4 hematocrit 25, and platelets of 526. Sodium 133, BUNs 27, creatinine 0.64. Glucose is 112. CRP is 95.2. The patient has a surrounding erythema possibly cellulitis around the PEG tube however the tube is still intact and working well. Therefore the patient was given Rocephin IV. I discussed the case with Hernandez FARRIS who is covering for this patient and he agrees to take the patient back and continue antibiotics. I discussed all the findings and test results with the patient. Patient was instructed to return to the emergency room immediately if any of the symptoms return or worsens. Plan of care was discussed with the patient and understands and agrees. All questions were answered at patient satisfaction. There were no further complaints or concerns. Lung exam before discharge: CTA B/L. Good air exchange. No wheezing or crackles heard. CVS: S1 and S2 present. No murmurs appreciated. Patient is alert and oriented x 3. Patient is hemodynamically stable. Patient will be discharged home with follow up PCP in the next 2-3 days - Diagnoses Provider Diagnoses: Cellulitis Discharge - Sign-Out/Discharge Documenting (check all that apply): Patient Departure - DISCHARGE Patient Received Moderate/Deep Sedation with Procedure: No - NO PROCEDURES DONE - Discharge Plan Condition: Stable Disposition: HOME Prescriptions: Sulfamethox/Trimethoprim DS* [Bactrim DS 800/160 TAB*] 1 tab PO BID #20 tab Patient Education Materials: Cellulitis (ED) Referrals: Xiomy Elizondo MD [Primary Care Provider] - 3 Days Additional Instructions: RETURN TO EMERGENCY DEPARTMENT WITH ANY NEW OR WORSENING SYMPTOMS. FOLLOW UP WITH PRIMARY CARE PHYSICIAN WITHIN THREE DAYS. - Billing Disposition and Condition Condition: STABLE Disposition: Home - Attestation Statements Document Initiated by Scribe: Yes Documenting Scribe: MATY ADAME Provider For Whom Scribe is Documenting (Include Credential): ABRAHAM ALARCON MD Scribe Attestation: MATY Otero , scribed for ABRAHAM ALARCON MD on 12/18/18 at 1313. Scribe Documentation Reviewed: Yes Provider Attestation: The documentation as recorded by the MATY rao accurately reflects the service I personally performed and the decisions made by me, ABRAHAM ALARCON MD Status of Scribe Document: Viewed
[2018-12-17 13:54] LABS: ABS Basophils 0.1 10^3/ul (0-0.2); ABS Eosinophils 0.5 10^3/ul (0-0.6); ABS Lymphocytes 1.3 10^3/ul (1.0-4.8); ABS Monocytes 1.1 10^3/ul (0-0.8); ABS Neutrophils 8.6 10^3/ul (1.5-7.7); ABS Nucleated RBC 0 10^3/ul; Eosinophil % 4.3 %; Hematocrit 25 % (42-52); Hemoglobin 8.4 g/dl (14.0-18.0); Lymphocyte % 11.6 %; Mean Corpuscular HGB Conc 33 g/dl (31-36); Mean Corpuscular Hemoglobin 33 pg (27-31); Mean Corpuscular Volume 98 fL (80-94); Mean Platelet Volume 6.5 fL (7.4-10.4); Nucleated Red Blood Cells % 0; Platelet Count 526 10^3/ul (150-450); Red Cell Distribution Width 14 % (10.5-15); White Blood Count 11.6 10^3/ul (3.5-10.8)
[2018-12-17 14:10] LABS: Albumin 3.5 g/dL (3.2-5.2); Albumin/Globulin Ratio 0.8 (1-3); BUN/Creatinine Ratio 42.2 (8-20); C Reactive Protein 95.29 mg/L (<8.01); Calcium 9.6 mg/dL (8.6-10.3); EGFR African American 150.5 (>60); EGFR Non-African American 124.4 (>60); Globulin 4.2 g/dL (2-4); Potassium 4.3 mmol/L (3.5-5.0); Total Bilirubin 0.2 mg/dL (0.2-1.0); Total Protein 7.7 g/dL (6.4-8.9)
[2018-12-17 15:32] LABS: Urine Appearance Cloudy; Urine Bilirubin Negative (Negative); Urine Blood Negative (Negative); Urine Color Yellow; Urine Glucose Negative (Negative); Urine Ketones Negative (Negative); Urine Nitrite Negative (Negative); Urine Protein Negative (Negative); Urine Specific Gravity 1.019 (1.010-1.030); Urine Urobilinogen Negative (Negative)
[2018-12-17] MEDS ORDERED: Ondansetron INJ* 2 MG/ML VIAL IV ONE (17:15)
[2018-12-17] MEDS ORDERED: Morphine VIAL* 10 MG/ML 1 ML VIAL IV ONE (17:15)
[2018-12-17 17:45] VITALS: BP 138/69
--- NOTE | 2018-12-20 12:17 | PN ---
Progress Note - Progress Note Date of Service: 12/17/18 Note: Organism grew staph aureus-positive, MRSA positive Patient was placed on Bactrim prior to discharge This is sensitive to organism Nothing further this time
== END 2018-12-17 17:45 | disposition home or self-care (01) ==
LOC: ED 13:16
DX: L03.90 Cellulitis, unspecified (principal); B95.62 Methicillin resistant Staphylococcus aureus infection as the cause of diseases classified elsewhere; I10 Essential (primary) hypertension; J44.9 Chronic obstructive pulmonary disease, unspecified; K21.9 Gastro-esophageal reflux disease without esophagitis; C15.9 Malignant neoplasm of esophagus, unspecified; Z87.891 Personal history of nicotine dependence; Z93.1 Gastrostomy status
CPT/HCPCS: 36415; 80053; 81003; 83605; 83690; 85025; 86140; 87070; 87077; 87186; 87205; 87640; 87641; 96361; 96374; 96375; 99283; J0696; J2270; J2405

== ENCOUNTER 2020-11-24 18:56 | Observation (INO) ==
[2020-11-24 19:47] LABS: ABS Basophils 0.1 10^3/ul (0-0.2); ABS Eosinophils 0.5 10^3/ul (0-0.6); ABS Lymphocytes 1.5 10^3/ul (1.0-4.8); ABS Monocytes 0.1 10^3/ul (0-0.8); ABS Neutrophils 6.2 10^3/ul (1.5-7.7); Eosinophil % 6.1 %; Hematocrit 34 % (42-52); Hemoglobin 11.3 g/dL (14.0-18.0); Lymphocyte % 17.6 %; Mean Corpuscular HGB Conc 33 g/dL (31-36); Mean Corpuscular Hemoglobin 32 pg (27-31); Mean Corpuscular Volume 95 fL (80-94); Mean Platelet Volume 7.4 fL (7.4-10.4); Nucleated Red Blood Cells % 0.1; Platelet Count 519 10^3/uL (150-450); Red Blood Count 3.56 10^6 /uL (4.18-5.48); Red Cell Distribution Width 15 % (10-15); White Blood Count 8.3 10^3/uL (3.5-10.8)
[2020-11-24] MEDS ORDERED: Ondansetron 4 mg VIAL 2 MG/ML 2 ml VIAL IV ONE (19:49)
[2020-11-24] MEDS ORDERED: Morphine 10 MG/ML VIAL (1 ml) IV ONE (19:49)
[2020-11-24] MEDS ORDERED: NS 0.9% 1000 ml BAG 2,000 ML IV ONE (19:49)
[2020-11-24 19:50] LABS: INR 1.06 (0.82-1.09)
[2020-11-24 20:00] LABS: ALT 15 U/L (7-52); AST 20 U/L (13-39); Albumin 3.5 g/dL (3.2-5.2); Albumin/Globulin Ratio 0.8 (1-3); Alkaline Phosphatase 74 U/L (34-104); Anion Gap 11 mmol/L (2-11); BUN/Creatinine Ratio 26.8 (8-20); Blood Urea Nitrogen 22 mg/dL (6-24); CO2 Carbon Dioxide 25 mmol/L (22-32); Calcium 9.1 mg/dL (8.6-10.3); Chloride 98 mmol/L (101-111); EGFR African American 112.4 (>60); EGFR Non-African American 92.9 (>60); Globulin 4.4 g/dL (2-4); Glucose 114 mg/dL (70-100); Lipase 16 U/L (11.0-82.0); Potassium 4.7 mmol/L (3.5-5.0); Sodium 134 mmol/L (135-145); Total Protein 7.9 g/dL (6.4-8.9)
[2020-11-24] MEDS ORDERED: Iohexol 300 (CONTRAST) 10 ML SDV IV ONE (20:08)
[2020-11-24 20:11] LABS: Troponin I 0.03 ng/mL (<0.03)
[2020-11-24 20:20] LABS: Alcohol, S 12 mg/dL (<10)
[2020-11-25] MEDS ORDERED: NS 0.9% 1000 ml BAG 1,000 ML IV SCH (01:45)
[2020-11-25] MEDS ORDERED: Pantoprazole VIAL 40 MG VIAL IV SCH (02:00)
[2020-11-25 02:39] LABS: Troponin I 0.03 ng/mL (<0.03)
[2020-11-25] MEDS ORDERED: Ondansetron 4 mg VIAL 2 MG/ML 2 ml VIAL IV PRN (02:46)
[2020-11-25] MEDS: NS 0.9% 1000 ml BAG 1,000 ML IV SCH ×2 (03:19→19:57)
[2020-11-25 03:25] LABS: Magnesium 1.5 mg/dL (1.9-2.7)
[2020-11-25] MEDS ORDERED: Magnesium Sulf 4 GM/100 ML IV 4,000 MG/100 ML BAG IVPB ONE (04:26)
[2020-11-25 06:52] LABS: ABS Basophils 0.1 10^3/ul (0-0.2); ABS Eosinophils 0.8 10^3/ul (0-0.6); ABS Lymphocytes 1.9 10^3/ul (1.0-4.8); ABS Monocytes 0.1 10^3/ul (0-0.8); ABS Neutrophils 6.5 10^3/ul (1.5-7.7); Eosinophil % 8.4 %; Hematocrit 33 % (42-52); Hemoglobin 10.9 g/dL (14.0-18.0); Lymphocyte % 20.5 %; Mean Corpuscular HGB Conc 33 g/dL (31-36); Mean Corpuscular Hemoglobin 32 pg (27-31); Mean Corpuscular Volume 97 fL (80-94); Mean Platelet Volume 7.4 fL (7.4-10.4); Platelet Count 452 10^3/uL (150-450); Red Blood Count 3.37 10^6 /uL (4.18-5.48); Red Cell Distribution Width 15 % (10-15); White Blood Count 9.4 10^3/uL (3.5-10.8)
[2020-11-25 07:09] LABS: BUN/Creatinine Ratio 26.1 (8-20); Calcium 8.2 mg/dL (8.6-10.3); EGFR African American 137.2 (>60); EGFR Non-African American 113.4 (>60); Potassium 3.8 mmol/L (3.5-5.0)
[2020-11-25 08:11] LABS: Magnesium 2.4 mg/dL (1.9-2.7)
[2020-11-25] MEDS: Pantoprazole VIAL 40 MG VIAL IV SCH ×2 (09:57→19:57)
[2020-11-25] MEDS: Sucralfate 1 gm SUSP 1 GM/10 ML UDC PO SCH ×3 (13:30→20:02)
[2020-11-26 08:30] LABS: ABS Basophils 0.1 10^3/ul (0-0.2); ABS Eosinophils 0.6 10^3/ul (0-0.6); ABS Lymphocytes 1.4 10^3/ul (1.0-4.8); ABS Monocytes 0.1 10^3/ul (0-0.8); ABS Neutrophils 3.7 10^3/ul (1.5-7.7); Eosinophil % 10.8 %; Hematocrit 30 % (42-52); Mean Corpuscular HGB Conc 34 g/dL (31-36); Mean Corpuscular Hemoglobin 32 pg (27-31); Mean Corpuscular Volume 95 fL (80-94); Mean Platelet Volume 7.3 fL (7.4-10.4); Platelet Count 420 10^3/uL (150-450); Red Blood Count 3.11 10^6 /uL (4.18-5.48); Red Cell Distribution Width 14 % (10-15); White Blood Count 5.9 10^3/uL (3.5-10.8)
[2020-11-26 09:03] LABS: BUN/Creatinine Ratio 16.7 (8-20); Calcium 8.3 mg/dL (8.6-10.3); EGFR African American 130.6 (>60); EGFR Non-African American 107.9 (>60); Potassium 3.7 mmol/L (3.5-5.0)
[2020-11-26] MEDS: Sucralfate 1 gm SUSP 1 GM/10 ML UDC PO SCH ×2 (10:34→11:31)
[2020-11-26] MEDS: Pantoprazole VIAL 40 MG VIAL IV SCH (11:30)
[2020-11-26 13:30] VITALS: BP 142/56
== END 2020-11-26 14:15 ==
LOC: ED 18:56 → MED 18:56
PROVIDERS: ADMIT Internal Medicine; ATTEND Internal Medicine

== ENCOUNTER 2021-01-26 14:20 | Inpatient (IN) ==
[2021-01-26] MEDS ORDERED: NS 0.9% 1000 ml BAG 1,000 ML IV ONE (14:34)
[2021-01-26] MEDS ORDERED: Ondansetron 4 mg VIAL 2 MG/ML 2 ml VIAL IV ONE (14:34)
[2021-01-26 15:33] LABS: ABS Lymphocytes 1.5 10^3/ul (1.0-4.8); ABS Monocytes 0.2 10^3/ul (0-0.8); ABS Neutrophils 7.3 10^3/ul (1.5-7.7); Eosinophil % 0.4 %; Hematocrit 32 % (42-52); Hemoglobin 10.8 g/dL (14.0-18.0); Lymphocyte % 16.6 %; Mean Corpuscular HGB Conc 34 g/dL (31-36); Mean Corpuscular Hemoglobin 34 pg (27-31); Mean Corpuscular Volume 99 fL (80-94); Mean Platelet Volume 7.9 fL (7.4-10.4); Platelet Count 170 10^3/uL (150-450); Red Blood Count 3.21 10^6 /uL (4.18-5.48); Red Cell Distribution Width 20 % (10-15)
[2021-01-26 15:49] LABS: ALT 14 U/L (7-52); AST 18 U/L (13-39); Albumin 3.8 g/dL (3.2-5.2); Albumin/Globulin Ratio 0.8 (1-3); Alkaline Phosphatase 99 U/L (34-104); Anion Gap 13 mmol/L (2-11); BUN/Creatinine Ratio 26.6 (8-20); Blood Urea Nitrogen 25 mg/dL (6-24); C Reactive Protein 33.69 mg/L (<8.01); CO2 Carbon Dioxide 25 mmol/L (22-32); Calcium 9.5 mg/dL (8.6-10.3); Chloride 99 mmol/L (101-111); EGFR Non-African American 79.3 (>60); Globulin 4.6 g/dL (2-4); Glucose 104 mg/dL (70-100); Lipase < 10 U/L (11.0-82.0); Magnesium 1.6 mg/dL (1.9-2.7); Potassium 3.7 mmol/L (3.5-5.0); Sodium 137 mmol/L (135-145); Total Protein 8.4 g/dL (6.4-8.9)
[2021-01-26] MEDS ORDERED: Magnesium Sulfate 2 gm BAG 2 GM/50 ML BAG IVPB ONE (16:15)
[2021-01-26] MEDS ORDERED: Metoclopramide 5 MG/ML VIAL (10 mg) IV ONE (16:23)
[2021-01-26] MEDS ORDERED: Ondansetron 4 mg VIAL 2 MG/ML 2 ml VIAL IV PRN (17:12)
[2021-01-26] MEDS ORDERED: Prochlorperazine 5 mg/ml 2 ml VIAL (10 mg) IV PRN (17:23)
[2021-01-26] MEDS: NS 0.9% 1000 ml BAG 1,000 ML IV SCH (18:24)
[2021-01-26 18:29] LABS: Ferritin 393.4 ng/mL (24-336)
[2021-01-26 18:34] LABS: Hematocrit 30 % (42-52); Hemoglobin 9.9 g/dL (14.0-18.0)
[2021-01-26] MEDS: Pantoprazole 80 mg in NS BAG 80 MG/250 ML BAG IV SCH (18:42)
[2021-01-26 18:57] LABS: Folate 10.06 ng/mL (>3.99)
[2021-01-26 23:15] LABS: Hematocrit 28 % (42-52); Hemoglobin 9.2 g/dL (14.0-18.0)
[2021-01-27] MEDS: NS 0.9% 1000 ml BAG 1,000 ML IV SCH ×2 (03:25→13:25)
[2021-01-27] MEDS: Pantoprazole 80 mg in NS BAG 80 MG/250 ML BAG IV SCH ×2 (05:45→17:17)
[2021-01-27 08:02] LABS: Hematocrit 24 % (42-52)
[2021-01-27 08:04] LABS: ABS Eosinophils 0.1 10^3/ul (0-0.6); ABS Lymphocytes 1.3 10^3/ul (1.0-4.8); ABS Monocytes 0.1 10^3/ul (0-0.8); ABS Neutrophils 5.2 10^3/ul (1.5-7.7); Eosinophil % 1.8 %; Hematocrit 24 % (42-52); Hemoglobin 8.2 g/dL (14.0-18.0); Lymphocyte % 18.8 %; Mean Corpuscular HGB Conc 35 g/dL (31-36); Mean Corpuscular Hemoglobin 34 pg (27-31); Mean Corpuscular Volume 99 fL (80-94); Mean Platelet Volume 7.9 fL (7.4-10.4); Platelet Count 127 10^3/uL (150-450); Red Cell Distribution Width 20 % (10-15); White Blood Count 6.7 10^3/uL (3.5-10.8)
[2021-01-27 08:18] LABS: Albumin 3.1 g/dL (3.2-5.2); Albumin/Globulin Ratio 0.9 (1-3); Calcium 8.1 mg/dL (8.6-10.3); EGFR African American 124.6 (>60); Globulin 3.3 g/dL (2-4); Potassium 3.6 mmol/L (3.5-5.0); Total Bilirubin 0.4 mg/dL (0.2-1.0); Total Protein 6.4 g/dL (6.4-8.9)
[2021-01-27] MEDS ORDERED: Influenza VAC *QUAD* 2020-21* 0.5 ML SYRINGE IM ONE (09:00)
[2021-01-27 11:15] LABS: Hematocrit 24 % (42-52); Hemoglobin 8.2 g/dL (14.0-18.0)
[2021-01-27 14:30] LABS: Hematocrit 23 % (42-52); Hemoglobin 7.8 g/dL (14.0-18.0)
[2021-01-27] MEDS ORDERED: fentaNYL 100 mcg/2 ml 50 MCG/ML VIAL ONE (15:42)
[2021-01-27] MEDS ORDERED: Midazolam 10 mg/10 ml VIAL 1 mg/ml 10 ml VIAL (10 mg) ONE (15:42)
[2021-01-28] MEDS: NS 0.9% 1000 ml BAG 1,000 ML IV SCH (00:29)
[2021-01-28 01:41] LABS: Hematocrit 28 % (42-52); Hemoglobin 9.1 g/dL (14.0-18.0)
[2021-01-28] MEDS: Pantoprazole 80 mg in NS BAG 80 MG/250 ML BAG IV SCH ×2 (03:24→13:47)
[2021-01-28 05:16] LABS: Hematocrit 25 % (42-52); Hemoglobin 8.5 g/dL (14.0-18.0)
[2021-01-29] MEDS ORDERED: Pantoprazole 80 mg in NS BAG 80 MG/250 ML BAG IV SCH (01:00)
[2021-01-29] MEDS: Pantoprazole 80 mg in NS BAG 80 MG/250 ML BAG IV SCH ×3 (01:07→11:39)
[2021-01-29 07:11] LABS: Hematocrit 26 % (42-52); Mean Corpuscular HGB Conc 35 g/dL (31-36); Mean Corpuscular Hemoglobin 34 pg (27-31); Mean Corpuscular Volume 97 fL (80-94); Red Blood Count 2.69 10^6 /uL (4.18-5.48); Red Cell Distribution Width 18 % (10-15); White Blood Count 3.4 10^3/uL (3.5-10.8)
[2021-01-29 08:39] LABS: ABS Eosinophils 0.2 10^3/ul (0-0.6); ABS Lymphocytes 1.2 10^3/ul (1.0-4.8); ABS Monocytes 0.1 10^3/ul (0-0.8); ABS Neutrophils 1.9 10^3/ul (1.5-7.7); Eosinophil % 5.7 %; Lymphocyte % 35.4 %; Mean Platelet Volume 7.7 fL (7.4-10.4); Platelet Count 93 10^3/uL (150-450)
[2021-01-29 11:47] VITALS: BP 142/56
== END 2021-01-29 14:20 | DRG 378 ==
LOC: ED 14:20 → MED 17:12
PROVIDERS: ADMIT Hospitalist; ATTEND Student in an Organized Health Care Education/Training Program